=== PATIENT | male | born 1955 | race Caucasian/White ===

== ENCOUNTER 2019-03-01 16:01 | Observation (INO) ==
[2019-03-01 16:40] LABS: Basophils # 0.1 K/mcL (0.0-0.2); Basophils % 0.4 %; Eosinophils # 0.1 K/mcL (0.0-0.6); Eosinophils % 0.5 %; Hematocrit 51.5 % (37.5-50.1); Hemoglobin 18.2 g/dL (12.9-16.9); Immature Granulocytes % 0.6 % (0-4); Lymphocytes # 3.5 K/mcL (0.6-4.6); Lymphocytes % 20.7 %; Mean Corpuscular HGB Conc 35.3 g/dL (31.6-35.5); Mean Corpuscular Hemoglobin 31.5 pg (28.0-33.3); Mean Corpuscular Volume 89.1 fL (83.0-100.0); Mean Platelet Volume 10.4 fL (9.4-12.4); Monocytes # 1.4 K/mcL (0.0-1.3); Monocytes % 8.5 %; Neutrophils # 11.6 K/mcL (1.6-8.9); Platelet Count 222 K/mcL (140-400); Red Blood Count 5.78 M/mcL (4.19-5.50); Red Cell Distribution Width 12.7 % (11.5-14.5); Segmented Neutrophils % 69.3 %; White Blood Count 16.7 K/mcL (4.3-11.1)
[2019-03-01 16:43] LABS: Alanine Aminotransferase 10 Units/L (7-52); Albumin 4.1 g/dL (3.5-5.7); Albumin/Globulin Ratio 1.6 (1.1-2.2); Alkaline Phosphatase 77 Units/L (34-104); Aspartate Amino Transferase 15 Units/L (13-39); BUN/Creatinine Ratio 14 (6-26); Bilirubin,Total 0.9 mg/dL (0.3-1.0); Blood Urea Nitrogen 14 mg/dL (8-23); Calcium 9.3 mg/dL (8.6-10.3); Carbon Dioxide 20 mEq/L (23-29); Chloride 108 mEq/L (98-107); Globulin 2.5 g/dL (2.4-3.5); Glucose 138 mg/dL (70-105); Osmolality,Calculated 287 (280-300); Potassium 3.9 mEq/L (3.5-5.1); Sodium 137 mEq/L (136-145); Total Protein 6.6 g/dL (6.4-8.9); Troponin I < 0.03 ng/mL (< 0.04); eGFR For African Americans > 60 (> 60); eGFR For Non-African Americans > 60 (> 60)
--- NOTE | 2019-03-01 16:53 | Emergency Department Note ---
Disposition Clinical Impression: Atrial fibrillation with RVR Disposition: Admitted As Inpatient Condition: Fair Time of Disposition: 19:35 General Adult HPI - General Chief complaint: ED Shortness of Breath/Dyspnea Stated complaint: JOSIAS,Palpatations Time Seen by Provider: 03/01/19 16:04 Source: patient Mode of arrival: ambulatory Limitations: no limitations Nursing Notes Reviewed: Yes Vital Signs Reviewed: Yes - History of Present Illness HPI Narrative: 63-year-old male presents today with 8 hour history of palpitations. This started today at 8 AM and did not improve throughout the day. Patient takes flecainide 100mg PO BID and baby aspirin daily for known history of atrial fib rillation. He was diagnosed with Afib 6+ years ago, but denies starting anticoagulation. He has intermittent episodes of palpitations, but has not had an episode for years. Reports that he had multiple cups of coffee and energy drinks today, which is uncommon for him. Admits to fatigue and "feeling like he just ran a marathon" but denies any nausea, vomiting, chest pain, SOB, diaphoresis, abdominal pain. No history of high blood pressure, CHF, COPD, but is a chronic active smoker. Pt Subjective Complaint: palpitations Onset (ago): hour(s) (8) Location: chest Radiation: non-radiation Pain Scale: 0 Quality: other (pressure) Consistency: constant Improves with: rest Worsens with: movement Associated symptoms: Denies: chest pain, diaphoresis - Related Data Home Medications Medication Instructions Recorded Confirmed Flecainide 100 mg PO BID 05/27/18 03/01/19 Aspirin [Adult Aspirin] 81 mg PO DAILY 03/01/19 03/01/19 [place]-3 600 mg PO DAILY 03/01/19 03/01/19 Allergies Allergy/AdvReac Type Severity Reaction Status Date / Time No Known Allergies Allergy Verified 03/01/19 17:02 Review of Systems: As Per HPI Constitutional: Denies: fever, chills, weakness, weight change Eyes: Denies: eye pain, eye discharge, vision change ENT ED: Denies: ear pain, throat pain, dental pain, hearing loss, epistaxis, congestion, dysphagia Cardiovascular: Reports: palpitations. Denies: chest pain, dyspnea on exertion, edema, syncope Respiratory: Denies: cough, dyspnea, wheezes, hemoptysis, stridor Gastrointestinal: Denies: abdominal pain, nausea, vomiting, diarrhea, constipation, hematemesis, melena, hematochezia Genitourinary: Denies: urgency, dysuria, frequency, hematuria Musculoskeletal: Denies: back pain, neck pain, arthralgia, myalgia Integumentary: Denies: rash, abrasion, lesions Neurological: Denies: headache, weakness, numbness, paresthesias, confusion, abnormal gait, vertigo Psychiatric: Denies: anxiety, depression, suicidal thoughts, homicidal thoughts, auditory hallucinations, visual hallucinations Endocrine: Denies: fatigue Hematological/Lymphatic: Denies: easy bleeding, easy bruising Allergic/Immunologic: Denies: facial swelling, urticaria Past Medical History - Past Medical History Attestation: Yes The following information was validated with the patient. Source: patient Medical history: Reports: atrial fibrillation Surgical history: Reports: no surgical history Psychiatric history: Reports: no psych history - Social History Smoking Status: Current every day smoker Smokeless Tobacco Status: No Alcohol use: Reports: occasionally Drug use: Reports: none Physical Exam - General Limitations: no limitations General appearance: alert - Head Head exam: atraumatic, normocephalic, normal inspection - Eye Eye exam: Present: normal appearance, EOMI - Expanded Eye Exam Pupils: Left: reactive - ENT ENT exam: normal exam, normal oropharynx, mucous membranes moist - Expanded ENT Exam External ear exam: Present: normal external inspection Mouth exam: Present: normal external inspection Teeth exam: Present: normal inspection Throat exam: Present: normal inspection - Neck Neck exam: Present: normal inspection, full ROM, trachea midline - Chest Chest inspection: Present: normal inspection, symmetric chest wall rise - Respiratory Respiratory exam: Present: normal lung sounds bilaterally - Cardiovascular Cardiovascular exam: Present: other (irregularly irregular) - Abdominal Exam Abdominal exam: Present: soft, Non-Tender. Absent: tenderness, distention, guarding, rebound, rigidity - Extremities Exam Extremities exam: Present: normal inspection, full ROM. Absent: tenderness, pedal edema - Expanded Upper Extremity Exam Shoulder exam: Present: normal inspection, full ROM Arm exam: Present: normal inspection, full ROM Elbow exam: Present: normal inspection, full ROM Forearm/Wrist exam: Present: normal inspection, full ROM Hand exam: Present: normal inspection, full ROM Vascular exam: Normal: capillary refill, radial pulse - Expanded Lower Extremity Exam Hip/Pelvis exam: Present: normal inspection, full ROM Upper leg exam: Present: normal inspection, full ROM Knee exam: Present: normal inspection, full ROM Lower leg exam: Present: normal inspection, full ROM Ankle exam: Present: normal inspection, full ROM Foot/toe exam: Present: normal inspection, full ROM Neurovascular/Tendon exam: Absent: motor deficit, sensory deficit, tendon deficit - Back Exam Back exam: Present: normal inspection, full ROM. Absent: tenderness - Neurological Exam Neurological exam: Present: alert, oriented X3 - Expanded Neurological Exam Patient oriented to: Present: person, place, time Coma Scale Eye Opening: Spontaneous Coma Scale Motor Response: Obeys Commands Coma Scale Verbal Response: Oriented Coma Scale Total: 15 - Psychiatric Psychiatric exam: Present: normal affect, normal mood - Skin Skin exam: Present: warm, dry, intact, normal color Course Course Narrative: Patient presents with Afib RVR confirmed by EKG. Will start cardiac work-up. CBC, coags, CMP, magnesium, CXR, troponin, TSH pending. We will start him on IV dose of Cardizem - Reevaluation(s) Reevaluation #1: HR 110s. Continues to be irregularly irregular. Time: 17:52 - Consultations Consultation #1: Admitting hospitalist has accepted. Time: 18:30 Vital Signs Temperature 98.2 F 03/01/19 16:05 Pulse Rate 157 03/01/19 16:05 Respiratory Rate 21 03/01/19 16:05 Blood Pressure 136/67 03/01/19 16:05 O2 Sat by Pulse Oximetry 95 03/01/19 16:05 Temperature 98.0 F 03/01/19 23:05 Pulse Rate 95 03/01/19 23:05 Respiratory Rate 15 03/01/19 23:05 Blood Pressure 96/63 03/01/19 23:05 O2 Sat by Pulse Oximetry 96 03/01/19 23:05 Oxygen Delivery Oxygen Delivery Room Air Medical Decision Making - MDM Narrative Medical decision making narrative: 63M presents with Afib with RVR with stable blood pressure. CXR unremarkable. He was started on Cardizem IV 25mg once and heart rate continues to be 120s and irregularly irregular. He continues to be fatigued and nauseous as well. Currently on cardizem IV drip. We will admit patient for Afib RVR, not anticoagulated. Admitting hospitalist has accepted. - Medical Records Medical records reviewed: Yes I reviewed the patient's medical records. - Lab Data Lab results reviewed: Yes I reviewed the patient's lab results. Result diagrams: 03/01/19 16:10 03/01/19 16:10 Lab Results 03/01/19 03/01/19 03/01/19 Range/Units 16:10 16:10 16:10 WBC 16.7 H (4.3-11.1) K/mcL RBC 5.78 H (4.19-5.50) M/mcL Hgb 18.2 H (12.9-16.9) g/dL Hct 51.5 H (37.5-50.1) % MCV 89.1 (83.0-100.0) fL MCH 31.5 (28.0-33.3) pg MCHC 35.3 (31.6-35.5) g/dL RDW 12.7 (11.5-14.5) % Plt Count 222 (140-400) K/mcL MPV 10.4 (9.4-12.4) fL Immature Gran % 0.6 (0-4) % Seg Neutrophils % 69.3 % Lymphocytes % 20.7 % Monocytes % 8.5 % Eosinophils % 0.5 % Basophils % 0.4 % Neutrophils # 11.6 H (1.6-8.9) K/mcL Lymphocytes # 3.5 (0.6-4.6) K/mcL Monocytes # 1.4 H (0.0-1.3) K/mcL Eosinophils # 0.1 (0.0-0.6) K/mcL Basophils # 0.1 (0.0-0.2) K/mcL PT 11.8 (9.4-12.1) Seconds INR 1.0 APTT 34.0 (26.0-36.0) Seconds Sodium 137 (136-145) mEq/L Potassium 3.9 (3.5-5.1) mEq/L Chloride 108 H (98-107) mEq/L Carbon Dioxide 20 L (23-29) mEq/L BUN 14 (8-23) mg/dL Creatinine 0.99 (0.70-1.30) mg/dL Est GFR ( Amer) > 60 (> 60) Est GFR (Non-Af Amer) > 60 (> 60) BUN/Creatinine Ratio 14 (6-26) Glucose 138 H (70-105) mg/dL Calculated Osmolality 287 (280-300) Calcium 9.3 (8.6-10.3) mg/dL Magnesium 2.0 (1.6-2.6) mg/dL Total Bilirubin 0.9 (0.3-1.0) mg/dL AST 15 (13-39) Units/L ALT 10 (7-52) Units/L Alkaline Phosphatase 77 (34-104) Units/L Troponin I < 0.03 (< 0.04) ng/mL Serum Total Protein 6.6 (6.4-8.9) g/dL Albumin 4.1 (3.5-5.7) g/dL Globulin 2.5 (2.4-3.5) g/dL Albumin/Globulin Ratio 1.6 (1.1-2.2) TSH 1.444 (0.340-5.600) mcIU/mL - Radiology Data Radiology results reviewed: Yes I reviewed the patient's radiology results. - EKG Data EKG #1 EKG attestation: Yes I reviewed and interpreted this EKG. EKG results narrative: EKG demonstrates irregularly irregular rhythm with rate 175
[2019-03-01 17:02] LABS: Prothrombin Time 11.8 Seconds (9.4-12.1)
--- NOTE | 2019-03-01 17:58 | Emergency Department Note ---
Disposition Clinical Impression: Atrial fibrillation with RVR Disposition: Admitted As Inpatient Condition: Good Time of Disposition: 19:35 General Adult HPI - General Chief complaint: ED Shortness of Breath/Dyspnea Stated complaint: JOSIAS,Palpatations Time Seen by Provider: 03/01/19 16:04 Source: patient Mode of arrival: ambulatory Limitations: no limitations - History of Present Illness Location: chest Pain Scale: 0 Quality: other (pressure) Improves with: rest Worsens with: movement Associated symptoms: Denies: chest pain, diaphoresis - Related Data Home Medications Medication Instructions Recorded Confirmed Flecainide 100 mg PO BID 05/27/18 03/02/19 Aspirin [Adult Aspirin] 81 mg PO DAILY 03/01/19 03/01/19 [place]-3/Dha/Epa/Fish Oil [Fish Oil 1 cap PO DAILY 03/01/19 03/02/19 1,000 mg Softgel] Previous Rx's Medication Instructions Recorded Metoprolol XL (24 HR) Succ [Toprol 25 mg PO DAILY #30 tab.er.24h 03/02/19 Xl] Allergies Allergy/AdvReac Type Severity Reaction Status Date / Time No Known Allergies Allergy Verified 03/01/19 17:02 Constitutional: Denies: fever, chills, weakness, weight change Eyes: Denies: eye pain, eye discharge, vision change ENT ED: Denies: ear pain, throat pain, dental pain, hearing loss, epistaxis, congestion, dysphagia Cardiovascular: Reports: palpitations. Denies: chest pain, dyspnea on exertion, edema, syncope Respiratory: Denies: cough, dyspnea, wheezes, hemoptysis, stridor Gastrointestinal: Denies: abdominal pain, nausea, vomiting, diarrhea, constipation, hematemesis, melena, hematochezia Genitourinary: Denies: urgency, dysuria, frequency, hematuria Musculoskeletal: Denies: back pain, neck pain, arthralgia, myalgia Integumentary: Denies: rash, abrasion, lesions Neurological: Denies: headache, weakness, numbness, paresthesias, confusion, abnormal gait, vertigo Psychiatric: Denies: anxiety, depression, suicidal thoughts, homicidal thoughts, auditory hallucinations, visual hallucinations Endocrine: Denies: fatigue Hematological/Lymphatic: Denies: easy bleeding, easy bruising Allergic/Immunologic: Denies: facial swelling, urticaria Past Medical History - Past Medical History Medical history: Reports: atrial fibrillation Surgical history: Reports: no surgical history Psychiatric history: Reports: no psych history - Social History Smoking Status: Current every day smoker Smokeless Tobacco Status: No Alcohol use: Reports: occasionally Drug use: Reports: none Physical Exam - General Limitations: no limitations General appearance: alert Course Vital Signs Temperature 98.2 F 03/01/19 16:05 Pulse Rate 157 03/01/19 16:05 Respiratory Rate 21 03/01/19 16:05 Blood Pressure 136/67 03/01/19 16:05 O2 Sat by Pulse Oximetry 95 03/01/19 16:05 Temperature 98.1 F 03/02/19 16:39 Pulse Rate 78 03/02/19 16:39 Respiratory Rate 15 03/02/19 16:39 Blood Pressure 112/74 03/02/19 16:39 O2 Sat by Pulse Oximetry 96 03/02/19 16:39 Oxygen Delivery Oxygen Delivery Room Air Medical Decision Making - Lab Data Result diagrams: 03/02/19 05:49 03/02/19 05:49 Lab Results 03/01/19 03/01/19 03/01/19 Range/Units 16:10 16:10 16:10 WBC 16.7 H (4.3-11.1) K/mcL RBC 5.78 H (4.19-5.50) M/mcL Hgb 18.2 H (12.9-16.9) g/dL Hct 51.5 H (37.5-50.1) % MCV 89.1 (83.0-100.0) fL MCH 31.5 (28.0-33.3) pg MCHC 35.3 (31.6-35.5) g/dL RDW 12.7 (11.5-14.5) % Plt Count 222 (140-400) K/mcL MPV 10.4 (9.4-12.4) fL Immature Gran % 0.6 (0-4) % Seg Neutrophils % 69.3 % Lymphocytes % 20.7 % Monocytes % 8.5 % Eosinophils % 0.5 % Basophils % 0.4 % Neutrophils # 11.6 H (1.6-8.9) K/mcL Lymphocytes # 3.5 (0.6-4.6) K/mcL Monocytes # 1.4 H (0.0-1.3) K/mcL Eosinophils # 0.1 (0.0-0.6) K/mcL Basophils # 0.1 (0.0-0.2) K/mcL PT 11.8 (9.4-12.1) Seconds INR 1.0 APTT 34.0 (26.0-36.0) Seconds Sodium 137 (136-145) mEq/L Potassium 3.9 (3.5-5.1) mEq/L Chloride 108 H (98-107) mEq/L Carbon Dioxide 20 L (23-29) mEq/L BUN 14 (8-23) mg/dL Creatinine 0.99 (0.70-1.30) mg/dL Est GFR ( Amer) > 60 (> 60) Est GFR (Non-Af Amer) > 60 (> 60) BUN/Creatinine Ratio 14 (6-26) Glucose 138 H (70-105) mg/dL Calculated Osmolality 287 (280-300) Calcium 9.3 (8.6-10.3) mg/dL Magnesium 2.0 (1.6-2.6) mg/dL Total Bilirubin 0.9 (0.3-1.0) mg/dL AST 15 (13-39) Units/L ALT 10 (7-52) Units/L Alkaline Phosphatase 77 (34-104) Units/L Troponin I < 0.03 (< 0.04) ng/mL Serum Total Protein 6.6 (6.4-8.9) g/dL Albumin 4.1 (3.5-5.7) g/dL Globulin 2.5 (2.4-3.5) g/dL Albumin/Globulin Ratio 1.6 (1.1-2.2) TSH 1.444 (0.340-5.600) mcIU/mL Attestation Statement - Attestation Attestation: I examined this patient and my medical decision-making was reviewed with the Resident Physician. I agree with the documented findings, disposition and treatment plan as described except to the extent set forth below. Patient 63-year-old gentleman with history of atrial fibrillation a presents to department with chief complaint of atrial fibrillation with rapid ventricular response. The patient reports that he feels as though his heart beating fast and feels that when his A. fib was kicked up for the past. Exam patient awake alert no acute distress patient has a resting heart rate in the 140s Medical decision management the patient will be rate controlled with IV Cardizem and the patient will be admitted to the hospital for further rate control I personally supervised and was present for the pearson/critical portions of the following procedures completed by the resident:EKG.
[2019-03-01 18:13] LABS: Thyroid Stimulating Hormone 1.444 mcIU/mL (0.340-5.600)
[2019-03-01] MEDS ORDERED: Naloxone 0.4 MG/ML INJ IVP PRN (22:10)
[2019-03-01] MEDS ORDERED: 0.9 % Sodium Chloride 1,000 ML IVC SCH (22:15)
--- NOTE | 2019-03-02 00:04 | Internal Med History&Physical ---
Date of Encounter: 03/01/19 Time of Encounter: 23:43 Internal Medicine - H&P: HPI Chief complaint: Lightheaded History of present illness: Mr. Mota is a 63 year old male with a past medical history of atrial fibrillation currently on rhythm control with flecainide who presented to the ED due to near-syncope and palpitations. Patient states that Saturday afternoon alvaro ent felt sick after he got home from work noting an upset stomach. No reports of nausea, vomiting or diarrhea. He states he slept all day on Saturday due to generalized fatigue. Did not have much to eat. Patient woke up Saturday morning and felt a little bit better. He was out doing work in his garden when he felt lightheaded and felt as if he was going to pass out. Patient stopped when he wa s doing and sat in the shade for little bit. He later resumed work in his garden and again had a near syncopal episode at which point he decided to come in for evaluation. Patient denies any loss of consciousness. Patient is currently on flecainide for his atrial fibrillation and follows with a plant hr manager in [place]. He states that his medication was cut in half approximately 6 months ago but has had no other recent changes in his medications. Patient did not endorse palpitations. He does endorse some chest discomfort that seems to be aggravated with deep inspiration. Denies any fever or chills. Denies any dysuria He did report shortness of breath today which resolved after his heart rate was controlled here in the ED. Patient is a chronic smoker and currently smokes 1 pack a day. No prior history of blood clots. No reports of sick contacts or tick bites. Patient is only on a baby aspirin, flecainide and omega-3 fatty acid. On arrival patient was found to have a heart rate in the 120s. EKG consistent with atrial fibrillation with rapid ventricular response. No evidence of ST or T-wave changes. Laboratory workup notable for a leukocytosis of 16.7 and evidence of hemoconcentration with a hemoglobin of 18.2 and hematocrit of 51.1. TSH within normal limits. Chest x-ray showed no acute cardiopulmonary abnormality. Past Med Surg Social Fam HX - Past Medical History Medical history: atrial fibrillation Psychiatric history: no psych history - Past Surgical History Surgical History: no surgical history - Social History Smoking Status: Current every day smoker Smokeless Tobacco Status: No Alcohol use: occasionally Drug use: none - Family History Mother Hx Family Cancer: Yes (lung, pancreatic) Father Hx Family Cancer: Yes (brain) Internal Medicine - H&P: Meds Flecainide 100 mg PO BID 05/27/18 [History] Aspirin [Adult Aspirin] 81 mg PO DAILY 03/01/19 [History] [place]-3/Dha/Epa/Fish Oil [Fish Oil 1,000 mg Softgel] 1 cap PO DAILY 03/01/19 [History] Metoprolol XL (24 HR) Succ [Toprol Xl] 25 mg PO DAILY #30 tab.er.24h 03/02/19 [Rx] Allergy/AdvReac Type Severity Reaction Status Date / Time No Known Allergies Allergy Verified 03/01/19 17:02 All Systems PM: A 10-system review of systems was performed and is negative for pertinent findings except as documented above in the HPI. - Constitutional Constitutional: no chills, no fever(s), no night sweats - EENT Eyes: no change in vision, no discharge, no pain, no photophobia Ears: no ear discharge, no ear pain, no tinnitus Nose, mouth and throat: no dysphagia, no nasal discharge, no neck pain, no sore throat - Cardiovascular Cardiovascular ROS IM: no chest pain, no diaphoresis, no dyspnea, no lighthe adedness, no palpitations, no syncope - Respiratory Respiratory: no cough, no dyspnea, no wheezing, no excessive phlegm production - Gastrointestinal Gastrointestinal: no abdominal pain, no diarrhea, no hematemesis, no hem atochezia, no melena, no nausea, no vomiting - Musculoskeletal Musculoskeletal ROS IM: no numbness, no tingling - Integumentary Integumentary IM: no rash, no unusual bruising - Neurological Neurological ROS: no confusion, no convulsions, no focal weakness, no numbness, no tingling, no tremor(s) - Hematologic/Lymphatic Hematologic/Lymphatic: no easy bruising - Constitutional Vitals: Temp Pulse Resp BP Pulse Ox 98.0 F 95 15 96/63 96 03/01/19 23:05 03/01/19 23:05 03/01/19 23:05 03/01/19 23:05 03/01/19 23:05 Exam: General: Alert and oriented 3 lying in bed in no acute distress Skin:Normal color, no rash, no lesions. HEENT:EOM, pupils equal, round and reactive. Cardiovascular:Normal S1 & S2, irregularly irregular rhythm Lungs:Normal breath sounds, no wheezes or crackles. Abdomen:Soft, non-tender, no rigidity. Extremities:No deformity, no edema or tenderness, no joint swelling or clubbing. Neurological:Normal cognition and motor skills. Pulses:Carotid and radial pulses normal +2. Rest of the physical exam is non contributory Internal Med - H&P Results - Labs CBC & Chem 7: 03/02/19 05:49 03/02/19 05:49 Labs: Short CBC 03/01/19 Range/Units 16:10 WBC 16.7 H (4.3-11.1) K/mcL Hgb 18.2 H (12.9-16.9) g/dL Hct 51.5 H (37.5-50.1) % Plt Count 222 (140-400) K/mcL Neutrophils # 11.6 H (1.6-8.9) K/mcL BMP 03/01/19 16:10 Sodium 137 Potassium 3.9 Chloride 108 H Carbon Dioxide 20 L BUN 14 Creatinine 0.99 Glucose 138 H Calcium 9.3 Cardiac Enzymes 03/01/19 Range/Units 16:10 Troponin I < 0.03 (< 0.04) ng/mL Liver Function 03/01/19 Range/Units 16:10 Total Bilirubin 0.9 (0.3-1.0) mg/dL AST 15 (13-39) Units/L ALT 10 (7-52) Units/L Alkaline Phosphatase 77 (34-104) Units/L Albumin 4.1 (3.5-5.7) g/dL - Impressions ITS Impressions Chest X-Ray 03/01/19 16:18 IMPRESSION: No acute process. D/ / Jaiden Perez MD / Jaiden Perez MD Interpreting Provider: Jaiden Perez MD - Assessment and Plan (1) Atrial fibrillation with RVR Status: Resolved Assessment and plan: History of atrial fibrillation currently on rhythm control with flecainide presenting with atrial fibrillation with RVR with EKG showing heart rate in the 120s associated with lightheadedness and near syncopal episode. No evidence of ischemia on EKG. Initial troponin negative. Not currently on anticoagulation likely due to a chads vasc score of 0 based on current past medical history. Patient currently takes a baby aspirin. Patient placed on Cardizem drip now with heart rate around 100 bpm. Patient otherwise hemodynamically stable. No reports of chest pain. Patient appears to be flushed and possibly dehydrated given history of decreased PO intake and working outdoors and suspect. This is further corroborated by his hemoconcentration, though patient is a chronic smoker. No previous labs to compare to. -Continue Cardizem drip -Telemetry -We will obtain echocardiogram in the morning -Cardiology consult for management of patient's rhythm control (2) Leukocytosis Status: Acute Assessment and plan: Neutrophilic predominant Leukocytosis of 16.7. Patient reports generalized fatigue and malaise for 2 days, however history does not support a pulmonary, GI or source of infection. Chest x-ray was unremarkable. She does not endorse any dysuria. I suspect some of this may be dehydration. - We will continue to hydrate patient and monitor response. Qualifiers: Qualified Code(s): D72.829 - Elevated white blood cell count, unspecified (3) Near syncope Status: Acute Assessment and plan: Patient reports to near syncope episodes likely secondary to A. fib with RVR. No reports of chest pain or neurologic changes. -We will obtain an echocardiogram -Continue Cardizem for A. 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 Reports very little food intake over the past 2 days. Clinically he looks flushed and a little bit dry. Laboratory findings showing hemoconcentration. -We will start patient on IV fluids. (5) DVT prophylaxis Status: Acute Assessment and plan: Subcutaneous heparin - Time Spent With Patient Total time spent is greater than 50% in coordination of care (as documented) at patient's floor/unit and/or counseling patient:
[2019-03-02] MEDS ORDERED: 0.9 % Sodium Chloride 1,000 ML IVC SCH (00:20)
[2019-03-02] MEDS: *HR* Heparin 5,000 UNIT/ML VIAL SQ SCH ×3 (02:05→15:07)
[2019-03-02 06:20] LABS: Basophils # 0.1 K/mcL (0.0-0.2); Basophils % 0.6 %; Eosinophils # 0.1 K/mcL (0.0-0.6); Eosinophils % 0.9 %; Hematocrit 49.3 % (37.5-50.1); Hemoglobin 16.7 g/dL (12.9-16.9); Immature Granulocytes % 0.7 % (0-4); Lymphocytes # 2.4 K/mcL (0.6-4.6); Lymphocytes % 19.6 %; Mean Corpuscular HGB Conc 33.9 g/dL (31.6-35.5); Mean Corpuscular Hemoglobin 31.1 pg (28.0-33.3); Mean Corpuscular Volume 91.8 fL (83.0-100.0); Mean Platelet Volume 9.8 fL (9.4-12.4); Monocytes # 1.6 K/mcL (0.0-1.3); Monocytes % 12.9 %; Platelet Count 190 K/mcL (140-400); Red Blood Count 5.37 M/mcL (4.19-5.50); Red Cell Distribution Width 12.8 % (11.5-14.5); Segmented Neutrophils % 65.3 %; White Blood Count 12.2 K/mcL (4.3-11.1)
[2019-03-02 06:42] LABS: Prothrombin Time 11.3 Seconds (9.4-12.1)
[2019-03-02 06:47] LABS: Alanine Aminotransferase 9 Units/L (7-52); Albumin 3.6 g/dL (3.5-5.7); Albumin/Globulin Ratio 1.6 (1.1-2.2); Alkaline Phosphatase 67 Units/L (34-104); Aspartate Amino Transferase 12 Units/L (13-39); BUN/Creatinine Ratio 13 (6-26); Bilirubin,Total 0.7 mg/dL (0.3-1.0); Blood Urea Nitrogen 10 mg/dL (8-23); Calcium 8.7 mg/dL (8.6-10.3); Carbon Dioxide 22 mEq/L (23-29); Chloride 109 mEq/L (98-107); Globulin 2.3 g/dL (2.4-3.5); Glucose 123 mg/dL (70-105); Osmolality,Calculated 290 (280-300); Potassium 3.9 mEq/L (3.5-5.1); Sodium 140 mEq/L (136-145); Total Protein 5.9 g/dL (6.4-8.9); eGFR For African Americans > 60 (> 60); eGFR For Non-African Americans > 60 (> 60)
--- NOTE | 2019-03-02 08:46 | Cardiology Consult Note ---
<Filipe Winkler N - Last Filed: 03/02/19 13:28> Date of Encounter: 03/02/19 Time of Encounter: 08:46 Assessment and Plan (1) Atrial fibrillation with RVR Status: Resolved 63 male with PMH significant for A. fib well controlled on flecainide presents after feeling palpitations around 8 AM on 03/01 falling a couple days of illness. Patient initial EKG 03/01 found to have A. fib with RVR with a rate of 175. Patient started on Cardizem drip overnight. Patient states upon waking up this morning he no longer fits feeling palpitations. ECG done 7:14 on 03/02 shows patient back in normal sinus rhythm, which he continues to be in at this time. CHADS-VASc score of 0 -Patient with a short timeframe of A. fib RVR resolved overnight after being placed on a Cardizem drip with a timeframe of less than 24 hours. -Patient will not require long-term anticoagulation. -Cardizem drip has been stopped -QT of 369 will continue patient's flecainide and aspirin therapy -Will start pt on Toprol 25 mg daily for better rate control. -Echo ordered, will follow results. -Continue to monitor telemetry until discharge to ensure patient does not return to atrial fibrillation -Patient will need to follow up with his plumber's helper outpatient, cardiology will sign off pending normal echo findings. (2) Leukocytosis Status: Acute Qualifiers: Leukocytosis type: unspecified Qualified Code(s): D72.829 - Elevated white blood cell count, unspecified (3) Dehydration Status: Acute (4) Near syncope Status: Acute (5) DVT prophylaxis Status: Acute Discussion w patient/family: The assessment and plan as outlined above was discussed with the patient and/or family members who expressed understanding and agreement. All questions were answered. Thank you for involving us in the care of your patient. Please call with any questions. History of Present Illness Consult date: 03/02/19 Chief complaint: Palpitations History of present illness: Mr. Mota is a 63 year old male with PMH significant for atrial fibrillation presented to the ED c/o palpitations starting at 8 AM that did not improve throughout the day. Patient states he was feeling fatigued for the couple days prior to noticing that his heart was beating out of sync. Patient states he k nows when he goes into A. fib and has not had an episode since being started on flecainide. Patient also complained of some fatigue but denied other symptoms. Patient is seen by a plumber's helper in [place] and takes aspirin 81 mg, flecainide 100 mg twice a day, and omega-3 600 mg at home. Patient has no records of echo in the system. Patient currently states he is not feeling any palpitations and has not since he woke up this morning. Vitals on admission were a heart rate of 157, respiratory rate of 21, blood pressure of 136/67, and O2 sat of 95% on room air. ECG in the ED on 03/01 showed atrial fibrillation with RVR at 175. Chest x-ray with no acute findings. Patient was started on a Cardizem drip. ECG 03/02 patient has returned to sinus rhythm with a rate of 75. Patient denying any chest pain, palpitations, shortness of breath, abdominal pain, or swelling in the legs at this time. Past Med Surg Social Fam HX - Past Medical History Medical history: atrial fibrillation Psychiatric history: no psych history - Past Surgical History Surgical History: no surgical history - Social History Smoking Status: Current every day smoker Smokeless Tobacco Status: No Alcohol use: occasionally Drug use: none - Family History Mother Hx Family Cancer: Yes (lung, pancreatic) Father Hx Family Cancer: Yes (brain) Medications and Allergies Flecainide 100 mg PO BID 05/27/18 [History] Aspirin [Adult Aspirin] 81 mg PO DAILY 03/01/19 [History] [place]-3/Dha/Epa/Fish Oil [Fish Oil 1,000 mg Softgel] 1 cap PO DAILY 03/01/19 [ History] Metoprolol XL (24 HR) Succ [Toprol Xl] 25 mg PO DAILY #30 tab.er.24h 03/02/19 [Rx] Allergy/AdvReac Type Severity Reaction Status Date / Time No Known Allergies Allergy Verified 03/01/19 17:02 All Systems Review: The remainder of the systems were reviewed and are negative - Constitutional Constitutional: fatigue, no chills, no fever(s) - EENT Eyes: no blurred vision, no loss of vision - Cardiovascular Cardiovascular: no chest pain at rest, no chest pain with exertion, no diaphoresis, no dyspnea at rest, no dyspnea on exertion, no irregular heart rhythm, no leg edema, no palpitations - Respiratory Respiratory: no cough, no dyspnea - Gastrointestinal Gastrointestinal: no abdominal pain, no diarrhea, no nausea - Musculoskeletal Musculoskeletal: no abnormal gait, no back pain, no muscle cramps - Integumentary Integumentary: no erythema, no rash - Neurological Neurological: no abnormal speech, no dizziness, no loss of vision, no syncope - Psychiatric Psychiatric: no anxiety, no depression - Hematological/Lymphatic Hematologic/Lymphatic: no easy bleeding, no easy bruising Physical Examination Vital Signs, Last 4 Hours Temp Pulse Resp BP Pulse Ox 03/02/19 07:30 98.2 F 76 19 96/58 95 General: Conversant, No Apparent Distress HEENT: Atraumatic, Normocephaly, Mucus Membranes Moist Neck: No JVD, Normal carotid pulses Cardiac: Reg Rate and Rhythm, Normal S1 and S2, No Murmur Lungs: Normal Breath Sounds Neuro: Alert and responsive, No focal deficits noted Abdomen: Soft, Non-Tender Skin: No rashes noted on visualized skin Musculoskeletal: No Chest Wall Tenderness Extremities: No Clubbing, No Cyanosis, No Edema, Normal Pulses Results 03/02/19 05:49 03/02/19 05:49 Lab Results 03/01/19 03/01/19 03/01/19 16:10 16:10 16:10 WBC 16.7 H Hgb 18.2 H Hct 51.5 H Plt Count 222 INR 1.0 APTT 34.0 Sodium 137 Potassium 3.9 Chloride 108 H Carbon Dioxide 20 L BUN 14 Creatinine 0.99 Glucose 138 H Calcium 9.3 Magnesium 2.0 Total Bilirubin 0.9 AST 15 ALT 10 Alkaline Phosphatase 77 Troponin I < 0.03 TSH 1.444 03/02/19 03/02/19 03/02/19 05:49 05:49 05:49 WBC 12.2 H Hgb 16.7 D Hct 49.3 Plt Count 190 INR 1.0 APTT Sodium 140 Potassium 3.9 Chloride 109 H Carbon Dioxide 22 L BUN 10 Creatinine 0.78 Glucose 123 H Calcium 8.7 Magnesium Total Bilirubin 0.7 AST 12 L ALT 9 Alkaline Phosphatase 67 Troponin I TSH Consult Discharge Plan - Plan Instructions: Metoprolol (By mouth), Atrial Fibrillation (DC) Referrals: Yaakov Dover MD [Non-Partnered Physician] - (Please call to schedule follow up within 1 week) Urvashi Nguyễn, [employer] [Primary Care Provider] - (Please call to schedule follow up within 1 week) Prescriptions: Metoprolol XL (24 HR) Succ [Toprol Xl] 25 mg PO DAILY #30 tab.er.24h <Jeni Do - Last Filed: 03/02/19 19:04> Date of Encounter: 03/02/19 - Attending Attestation Patient was seen and evaluated independently by me. Findings, assessment and plan were discussed at length with patient, questions answered. Agree with nurse practitioner's/resident's documentation. Addition as follows, 63yoCF ho PAF C score 0 on flecainide p/w palpitations after URI symptoms, last time in Afib 6-7 yrs ago. Stated always palpitations going into Afib. Found in Afib RVR and converted to SR spontaneously within 24 hours of symptom onset. No complaints on interview. Tele no events. ECG QRS wnl. VSS, CTA B/L, RR, no LE edema. No RUY, TSH nl, leukocytosis. A: PAF, C score 0, on flecainide, back to SR in 24 hrs of Afib P: add toprol 25 given Ic drug use if TTE wnl, continue flecainide and f/u primary plumber's helper Jeni Do MD, PhD Assessment and Plan Discussion w patient/family: The assessment and plan as outlined above was discussed with the patient and/or family members who expressed understanding and agreement. All questions were answered. Thank you for involving us in the care of your patient. Please call with any questions. History of Present Illness History of present illness: Mr. Mota is a 63 year old male All Systems Review: The remainder of the systems were reviewed and are negative Physical Examination Vital Signs, Last 4 Hours Temp Pulse Resp BP Pulse Ox 03/02/19 16:39 98.1 F 78 15 112/74 96 Results 03/02/19 05:49 03/02/19 05:49 Lab Results 03/02/19 03/02/19 03/02/19 05:49 05:49 05:49 WBC 12.2 H Hgb 16.7 D Hct 49.3 Plt Count 190 INR 1.0 Sodium 140 Potassium 3.9 Chloride 109 H Carbon Dioxide 22 L BUN 10 Creatinine 0.78 Glucose 123 H Calcium 8.7 Total Bilirubin 0.7 AST 12 L ALT 9 Alkaline Phosphatase 67
[2019-03-02] MEDS ORDERED: OMEGA PO SCH (09:00)
[2019-03-02] MEDS ORDERED: Aspirin Enteric Coated 81 MG Tablet PO SCH (09:00)
[2019-03-02] MEDS ORDERED: Metoprolol XL (24 HR) Succ 25 MG TAB.ER.24H PO SCH ×2 (13:02→20:00)
--- NOTE | 2019-03-02 15:01 | Electrocardiograph Report ---
[place] [id number] Test Date: 2019-03-02 Pat Name: Nguyễn Mota Department: 113 Room: 3B Gender: M Physician Assistant Primary Care: : 1955 Requested By: Armando Burgos Order Number: [id number] Reading MD: Justin Bloom Measurements Intervals [place] Rate: 75 P: 56 CT: 151 QRS: 69 QRSD: 92 T: 85 QT: 369 QTc: 397 Interpretive Statements SINUS RHYTHM Electronically Signed On 03-02-2019 15:00:05 EDT by Justin Bloom
[2019-03-02] MEDS ORDERED: Perflutren Lipid Microsphere 1.3 ML in 0.9 % Sodium Chloride 8.7 ML IVP ONE (15:23)
--- NOTE | 2019-03-02 15:46 | Discharge Summary ---
- NOTES TO OUTPATIENT PROVIDER Notes to Outpatient Provider: f/u with PCP in one week. f/u with Cardiology in one week. Please start taking Metoprolol XL 25mg PO Daily. Please quit smoking. Date of Encounter: 03/02/19 Time of Encounter: 15:34 - Discharge Diagnosis (1) Near syncope Priority: Primary Status: Acute (2) Atrial fibrillation with RVR Priority: Primary Status: Resolved (3) Leukocytosis Priority: Primary Status: Acute Qualifiers: Leukocytosis type: unspecified Qualified Code(s): D72.829 - Elevated white blood cell count, unspecified (4) Dehydration Priority: Secondary Status: Acute (5) DVT prophylaxis Priority: Secondary Status: Acute Hospital course: Mr. Mota is a 63 year old male with known past medical history of atrial fibrillation currently on flecainide and ASA, chronic tobacco dependence pt presented to the ED due to near-syncope and palpitations. Patient is currently on flecainide for his atrial fibrillation and follows with a metalsmith helper in [place]. He states that his medication was cut in half approximately 6 months ago but has had no other recent changes in his medications. On arrival to the ER patient was found to have a heart rate in the 120s. EKG consistent with atrial fibrillation with rapid ventricular response. No evidence of ST or T-wave changes. He was admitted in the hospital and placed him on ekg monitor tech. He was started on Cardizem drip. He is converted to NSR this morning. So we resumed his home med Flecainide. Pt was evaluated by metalsmith helper who recommend to add BB along with Flecainide for rate control. So started him on Metoprolol XL 25mg. We will d/c him home in stable condition today after 2 D Echo. - Time Spent with Patient Total time spent providing and/or coordinating discharge services: - Discharge Medications Prescriptions: New Metoprolol XL (24 HR) Succ [Toprol Xl] 25 mg PO DAILY #30 tab.er.24h Continued Flecainide 100 mg PO BID Aspirin [Adult Aspirin] 81 mg PO DAILY [place]-3/Dha/Epa/Fish Oil [Fish Oil 1,000 mg Softgel] 1 cap PO DAILY Home Medications: Flecainide 100 mg PO BID 05/27/18 [History] Aspirin [Adult Aspirin] 81 mg PO DAILY 03/01/19 [History] [place]-3/Dha/Epa/Fish Oil [Fish Oil 1,000 mg Softgel] 1 cap PO DAILY 03/01/19 [History] Metoprolol XL (24 HR) Succ [Toprol Xl] 25 mg PO DAILY #30 tab.er.24h 03/02/19 [Rx] Allergies/Adverse Reactions: Allergy/AdvReac Type Severity Reaction Status Date / Time No Known Allergies Allergy Verified 03/01/19 17:02 Date of admission: 03/01/19 20:04 Primary care physician: Urvashi Nguyễn CNP Consults: 03/01/19 22:16 Consult to Cardiology [CONS] Routine Comment: Consulting Provider: Cardiology Fabiola Reason for Consult: A fib with RVR on Flecanide Call Completed: No - Constitutional Vitals: Temp Pulse Resp BP Pulse Ox 98.1 F 73 16 98/60 96 03/02/19 11:50 03/02/19 11:50 03/02/19 11:50 03/02/19 11:50 03/02/19 11:50 General appearance: Present: A&O X 3, no acute distress, answers questions appropriately Exam: Gen: Alert, awake, Oriented to time,place and person Chest: Diminished breath sounds B/L, No wheezing, No crackles, No rales Heart: S1S2+ RRR No murmurs Abd: Soft, NT, BS +, No organomegaly Ext: No edema, pulses are palpable, No calf tenderness Neuro : No acute focal neuro deficits noticed Skin: No rash. - Patient Status Disposition: Home, Self-Care Condition: Good Overall status at discharge: patient is back to baseline - Discharge Instructions Follow Up With: Urvashi Nguyễn CNP [Primary Care Provider] - Yaakov Dover MD [Non-Partnered Physician] - - Diet and Activity Activity: increase activity as tolerated Diet: low salt diet
[2019-03-02 16:40] VITALS: BP 112/74
--- NOTE | 2019-03-03 06:32 | Electrocardiograph Report ---
[place] [employer] Test Date: 2019-03-01 Pat Name: Nguyễn Mota Department: [id number] Room: 3B63 Gender: M Cyber Security: : 1955 Requested By: Wayne Dalton Order Number: [id number] Reading MD: Dmitry Fan Measurements Intervals [place] Rate: 175 P: [place]: QRS: 103 QRSD: 102 T: -58 QT: 296 QTc: 480 Interpretive Statements Atrial fibrillation with rapid V-rate Left posterior fascicular block Electronically Signed On 03-03-2019 6:31:09 EDT by Dmitry Fan
== END 2019-03-02 17:36 | disposition home or self-care (01) ==
LOC: EMEROOARM 16:01 → 3BNU 16:01
PROVIDERS: ADMIT Internal Medicine; ATTEND Internal Medicine

== ENCOUNTER 2019-03-26 18:28 | Inpatient (IN) ==
[2019-03-26 19:00] LABS: Basophils # 0.1 K/mcL (0.0-0.2); Basophils % 0.5 %; Eosinophils # 0.1 K/mcL (0.0-0.6); Eosinophils % 0.8 %; Hematocrit 49.7 % (37.5-50.1); Hemoglobin 17.1 g/dL (12.9-16.9); Immature Granulocytes % 0.5 % (0-4); Lymphocytes # 3.3 K/mcL (0.6-4.6); Lymphocytes % 24.2 %; Mean Corpuscular HGB Conc 34.4 g/dL (31.6-35.5); Mean Corpuscular Hemoglobin 30.9 pg (28.0-33.3); Mean Corpuscular Volume 89.9 fL (83.0-100.0); Mean Platelet Volume 10.2 fL (9.4-12.4); Monocytes # 1.2 K/mcL (0.0-1.3); Neutrophils # 8.8 K/mcL (1.6-8.9); Platelet Count 222 K/mcL (140-400); Red Blood Count 5.53 M/mcL (4.19-5.50); Red Cell Distribution Width 12.6 % (11.5-14.5); White Blood Count 13.5 K/mcL (4.3-11.1)
--- NOTE | 2019-03-26 19:00 | Emergency Department Note ---
Disposition Clinical Impression: Atrial fibrillation Disposition: Admitted As Inpatient Condition: Fair Forms: ED Satisfaction Letter Time of Disposition: 20:16 Arrhythmia/Palpitations HPI - General Chief Complaint: ED Arrhythmia/Palpitations Stated Complaint: a-fib Time Seen by Provider: 03/26/19 18:37 Source: EMS - History of Present Illness HPI Narrative: Patient is a 63-year-old male presents to emergency room with lightheadedness, palpitations. The patient does have a history of atrial fibrillation. The patient is followed by activities coordinator at [facility]. The patient states that he was there yesterday, they did not do anything for him, the patient states that he still is having symptoms today. The patient states he is feeling somewhat lightheaded at times, and no syncope, no chest pain. Patient denies any severe shortness of breath or cough. The patient has daily pain or swelling. The patient denies any abdominal pain. The patient is on beta vega and flecainide for his atrial fibrillation. He is not anticoagulated. The patient denies any or GI complaints. The patient states nothing else makes symptoms better or worse. - Related Data Home Medications Medication Instructions Recorded Confirmed Flecainide 100 mg PO BID 05/27/18 03/02/19 Aspirin [Adult Aspirin] 81 mg PO DAILY 03/01/19 03/01/19 [place]-3/Dha/Epa/Fish Oil [Fish Oil 1 cap PO DAILY 03/01/19 03/02/19 1,000 mg Softgel] Previous Rx's Medication Instructions Recorded Metoprolol XL (24 HR) Succ [Toprol 25 mg PO DAILY #30 tab.er.24h 03/02/19 Xl] Allergies Allergy/AdvReac Type Severity Reaction Status Date / Time No Known Allergies Allergy Verified 03/01/19 17:02 Review of Systems: As mentioned per history of present illness and as follows. Constitutional: Negative for chills or fever HENT: Negative for sore throat. Eyes: Negative for visual disturbance Respiratory: Negative for shortness of breath. Cardiovascular: Positive for palpitations. Gastrointestinal: Negative for abdominal pain Genitourinary: Negative for dysuria Musculoskeletal: Negative for back pain. Skin: Negative for rash. Neurological: Negative for focal weakness Psychiatric/Behavioral: Negative for depression Past Medical History - Past Medical History Medical history: Reports: atrial fibrillation Surgical history: Reports: no surgical history Psychiatric history: Reports: no psych history - Social History Smoking Status: Current every day smoker Smokeless Tobacco Status: No Alcohol use: Reports: occasionally Drug use: Reports: none Physical Exam PHYSICAL EXAM Constitutional: Well developed, Well nourished, No acute distress, Non-toxic appearance. HENT: Normocephalic, Atraumatic, Bilateral external ears normal, Oropharynx moist, No oral exudates, Nose normal. Neck- Normal range of motion, No tenderness, Supple. Eyes: PERRL, EOMI, Conjunctiva normal,. Cardiovascular: Tachycardic rate with irregular rhythm without clicks, rubs, gallops or murmurs. Respiratory: Normal breath sounds, No respiratory distress, No wheezing, rhonchi, or crackles. GI: Soft, nontender, no evidence of guarding or peritoneal signs. Bowel sounds are active. Musculoskeletal: Good range of motion in all major joints. No tenderness to palpation or major deformities noted. +5/5 strength noted to all extremities. Integument: Warm, Dry, No erythema, No rash. No edema. Neurologic: Alert & oriented x 3, Normal sensory function, No focal deficits noted. CN II-XII grossly intact. - General General appearance: alert Course Vital Signs Temperature 98.2 F 03/26/19 18:29 Pulse Rate 131 03/26/19 18:29 Respiratory Rate 18 03/26/19 18:29 Blood Pressure 108/66 03/26/19 18:29 O2 Sat by Pulse Oximetry 97 03/26/19 18:29 Temperature 98.2 F 03/26/19 18:37 Pulse Rate 107 03/26/19 19:42 Respiratory Rate 20 03/26/19 19:42 Blood Pressure 109/66 03/26/19 19:42 O2 Sat by Pulse Oximetry 93 03/26/19 19:42 Oxygen Delivery Oxygen Delivery Room Air Arrhythmia/Palpitations - [facility] Narrative Medical decision making narrative: EKG was obtained that showed evidence of it appears to be a atrial flutter at a rate of 126 beats a minute. This could possibly an ectopic atrial tachycardia. Patient has somewhat prolonged QTC at [address] elevation, there is some ST segment depression diffusely possibly secondary to rate. Interpreted by myself. Patient has negative workup overall emergency room, negative chest x-ray, no evidence of CHF. The patient at this point time was placed on Cardizem and placed on Cardizem drip in the emergency room, patient is known atrial fibrillation with a rate around 105 beats a minute at reevaluation. The patient is resting comfortably. No other complaints at this time. The patient at this time did have case discussed with cardiology. Patient at this time was also placed on heparin drip here in emergency room. Patient is going to be admitted, case discussed with hospitalist and the patient will be admitted in stable condition to the telemetry floor. CRITICAL CARE TIME OF 35 MINUTES PERFORMING THIS INDIVIDUAL OUTSIDE OF SEPARATELY BILLABLE PROCEDURES. THIS INCLUDES BEDSIDE EVALUATION, INTERPRETATION OF EKG AND LAB TESTS AND CONSULTATIONS. Final impression 1. Paroxysmal atrial fibrillation - Lab Data Result diagrams: 03/26/19 18:32 03/26/19 18:32 Lab Results 03/26/19 03/26/19 03/26/19 Range/Units 18:32 18:32 18:32 WBC 13.5 H (4.3-11.1) K/mcL RBC 5.53 H (4.19-5.50) M/mcL Hgb 17.1 H (12.9-16.9) g/dL Hct 49.7 (37.5-50.1) % MCV 89.9 (83.0-100.0) fL MCH 30.9 (28.0-33.3) pg MCHC 34.4 (31.6-35.5) g/dL RDW 12.6 (11.5-14.5) % Plt Count 222 (140-400) K/mcL MPV 10.2 (9.4-12.4) fL Immature Gran % 0.5 (0-4) % Seg Neutrophils % 65.0 % Lymphocytes % 24.2 % Monocytes % 9.0 % Eosinophils % 0.8 % Basophils % 0.5 % Neutrophils # 8.8 (1.6-8.9) K/mcL Lymphocytes # 3.3 (0.6-4.6) K/mcL Monocytes # 1.2 (0.0-1.3) K/mcL Eosinophils # 0.1 (0.0-0.6) K/mcL Basophils # 0.1 (0.0-0.2) K/mcL PT 11.8 (9.4-12.1) Seconds INR 1.0 APTT 36.1 H (26.0-36.0) Seconds Sodium 141 (136-145) mEq/L Potassium 3.6 (3.5-5.1) mEq/L Chloride 109 H (98-107) mEq/L Carbon Dioxide 22 L (23-29) mEq/L BUN 15 (8-23) mg/dL Creatinine 0.92 (0.70-1.30) mg/dL Est GFR ( Amer) > 60 (> 60) Est GFR (Non-Af Amer) > 60 (> 60) BUN/Creatinine Ratio 16 (6-26) Glucose 103 (70-105) mg/dL Calculated Osmolality 293 (280-300) Calcium 9.7 (8.6-10.3) mg/dL Troponin I < 0.03 (< 0.04) ng/mL TSH 2.679 (0.340-5.600) mcIU/mL Critical Care Time Critical Care Time: Yes Total Critical Care Time: 35 Attestation: CRITICAL CARE TIME OF 35 MINUTES PERFORMING THIS INDIVIDUAL OUTSIDE OF SEPARATELY BILLABLE PROCEDURES. THIS INCLUDES BEDSIDE EVALUATION, INTERPR ETATION OF EKG AND LAB TESTS AND CONSULTATIONS.
[2019-03-26 19:12] LABS: Prothrombin Time 11.8 Seconds (9.4-12.1)
[2019-03-26 19:15] LABS: Activated Partial Thrombo Time 36.1 Seconds (26.0-36.0)
[2019-03-26 19:16] LABS: BUN/Creatinine Ratio 16 (6-26); Blood Urea Nitrogen 15 mg/dL (8-23); Calcium 9.7 mg/dL (8.6-10.3); Carbon Dioxide 22 mEq/L (23-29); Chloride 109 mEq/L (98-107); Glucose 103 mg/dL (70-105); Osmolality,Calculated 293 (280-300); Potassium 3.6 mEq/L (3.5-5.1); Sodium 141 mEq/L (136-145); eGFR For African Americans > 60 (> 60); eGFR For Non-African Americans > 60 (> 60)
[2019-03-26 19:17] LABS: Troponin I < 0.03 ng/mL (< 0.04)
[2019-03-26 19:29] LABS: Thyroid Stimulating Hormone 2.679 mcIU/mL (0.340-5.600)
[2019-03-26] MEDS ORDERED: *HR* Heparin 5,000 UNIT/ML VIAL IVP ONE (20:07)
[2019-03-26] MEDS ORDERED: *HR* Heparin 5,000 UNIT/ML VIAL IVP PRN ×2 (20:07)
[2019-03-26] MEDS ORDERED: Heparin 25,000 UNIT/250 ML D5W 25,000 UNIT/250 ML IV.SOLN IVC SCH (20:15)
[2019-03-26] MEDS ORDERED: Naloxone 0.4 MG/ML INJ IVP PRN (20:17)
--- NOTE | 2019-03-26 20:22 | Internal Med History&Physical ---
Date of Encounter: 03/26/19 Time of Encounter: 20:19 Internal Medicine - H&P: HPI Chief complaint: Palpitations History of present illness: Mr. Mota is a 63 year old male with a past medical history of atrial fibrillation currently on rhythm control with flecainide who presented to the ED due to 3 day history of palpitations associated with shortness of breath and li ghtheadedness. Episodes occurring intermittently typically when he is active. He does report several episodes that awoke him up at night. These episodes are associated with shortness of breath and lightheadedness. Denies any chest pain. Patient had similar presentation earlier this month with Cherry avelar with RVR. Patient was seen by cardiology who added metoprolol XL 25 mg to his Flecainide regimen. No reports of recent illness. Patient reports she has been compliant with his medications. On arrival patient was found to have a heart rate in the 120s. Blood pressure was in the 90s to 100s. EKG showed evidence of atrial flutter with a heart rate of 126. TSH within normal limits. Chest x-ray showed no acute cardiopulmonary abnormality. Patient given a loading dose of Cardizem and placed on Cardizem drip. Heart rate now in the 90s to low 100s. We will admit for further evaluation and cardiology consult. Past Med Surg Social Fam HX - Past Medical History Medical history: atrial fibrillation Psychiatric history: no psych history - Past Surgical History Surgical History: no surgical history - Social History Smoking Status: Current every day smoker Smokeless Tobacco Status: No Alcohol use: occasionally Drug use: none - Family History Mother Hx Family Cancer: Yes (lung, pancreatic) Father Hx Family Cancer: Yes (brain) Internal Medicine - H&P: Meds Flecainide 100 mg PO BID 05/27/18 [History] Aspirin [Adult Aspirin] 81 mg PO DAILY 03/01/19 [History] [place]-3/Dha/Epa/Fish Oil [Fish Oil 1,000 mg Softgel] 1 cap PO DAILY 03/01/19 [History] Metoprolol XL (24 HR) Succ [Toprol Xl] 25 mg PO DAILY #30 tab.er.24h 03/02/19 [Rx] Allergy/AdvReac Type Severity Reaction Status Date / Time No Known Allergies Allergy Verified 03/01/19 17:02 All Systems PM: A 10-system review of systems was performed and is negative for pertinent findings except as documented above in the HPI. - Constitutional Constitutional: no chills, no fever(s), no night sweats - EENT Eyes: no change in vision, no discharge, no pain, no photophobia Ears: no ear discharge, no ear pain, no tinnitus Nose, mouth and throat: no dysphagia, no nasal discharge, no neck pain, no sore throat - Cardiovascular Cardiovascular ROS IM: no chest pain, no diaphoresis, no dyspnea, no lightheadedness, no palpitations, no syncope - Respiratory Respiratory: no cough, no dyspnea, no wheezing, no excessive phlegm production - Gastrointestinal Gastrointestinal: no abdominal pain, no diarrhea, no hematemesis, no hematochezia, no melena, no nausea, no vomiting - Musculoskeletal Musculoskeletal ROS IM: no numbness, no tingling - Integumentary Integumentary IM: no rash, no unusual bruising - Neurological Neurological ROS: no confusion, no convulsions, no focal weakness, no numbness, no tingling, no tremor(s) - Hematologic/Lymphatic Hematologic/Lymphatic: no easy bruising - Constitutional Vitals: Temp Pulse Resp BP Pulse Ox 98.2 F 107 20 109/66 93 03/26/19 18:37 03/26/19 19:42 03/26/19 19:42 03/26/19 19:42 03/26/19 19:42 Exam: General: Alert and oriented Skin:Normal color, no rash, no lesions. HEENT:EOM, pupils equal, round and reactive. Cardiovascular:Normal S1 & S2, irregularly irregular Lungs:Normal breath sounds, no wheezes or crackles. Abdomen:Soft, non-tender, no rigidity. Extremities:No deformity, no edema or tenderness, no joint swelling or clubbing. Neurological:Normal cognition and motor skills. Pulses:Carotid and radial pulses normal +2. Rest of the physical exam is non contributory Internal Med - H&P Results - Labs CBC & Chem 7: 03/27/19 02:27 03/27/19 02:27 Labs: Short CBC 03/26/19 Range/Units 18:32 WBC 13.5 H (4.3-11.1) K/mcL Hgb 17.1 H (12.9-16.9) g/dL Hct 49.7 (37.5-50.1) % Plt Count 222 (140-400) K/mcL Neutrophils # 8.8 (1.6-8.9) K/mcL BMP 03/26/19 18:32 Sodium 141 Potassium 3.6 Chloride 109 H Carbon Dioxide 22 L BUN 15 Creatinine 0.92 Glucose 103 Calcium 9.7 Cardiac Enzymes 03/26/19 Range/Units 18:32 Troponin I < 0.03 (< 0.04) ng/mL - Impressions ITS Impressions Chest X-Ray 03/26/19 18:32 IMPRESSION: No acute process. D/ / Jaiden Perez MD / Jaiden Perez MD Interpreting Provider: Jaiden Perez MD - Assessment and Plan (1) Atrial fibrillation with RVR Current Visit: No Status: Resolved Assessment and plan: History of atrial fibrillation currently on rhythm control with flecainide and beta vega presenting with atrial fibrillation with RVR with EKG showing heart rate in the 120s associated with lightheadedness and shortness of breath. Initial troponin negative. Not currently on anticoagulation likely due to a c hads vasc score of 0. Patient currently takes a baby aspirin. Placed on Cardizem drip now with heart rate around 100 bpm. Case discussed with cardiology who recommended heparin drip as well. Patient otherwise hemodynamically stable. No reports of chest pain. -Continue Cardizem and heparin drip -Telemetry -Trend troponin -Cardiology consult for management of patient's rhythm control (2) Leukocytosis Current Visit: No Status: Acute Assessment and plan: Neutrophilic predominant Leukocytosis of 13.5. No evidence of pulmonary, GI or source of infection. Chest x-ray was unremarkable. She does not endorse any dysuria. I suspect some of this may be dehydration. - We will continue to hydrate patient and monitor response. Qualifiers: Leukocytosis type: unspecified Qualified Code(s): D72.829 - Elevated white blood cell count, unspecified (3) DVT prophylaxis Current Visit: No Status: Acute Assessment and plan: Currently on heparin drip - Time Spent With Patient Total time spent is greater than 50% in coordination of care (as documented) at patient's floor/unit and/or counseling patient:
[2019-03-27 03:21] LABS: Basophils # 0.1 K/mcL (0.0-0.2); Basophils % 0.9 %; Eosinophils # 0.2 K/mcL (0.0-0.6); Eosinophils % 1.9 %; Hematocrit 49.4 % (37.5-50.1); Hemoglobin 16.8 g/dL (12.9-16.9); Immature Granulocytes % 0.7 % (0-4); Lymphocytes # 3.8 K/mcL (0.6-4.6); Lymphocytes % 34.9 %; Mean Corpuscular Hemoglobin 31.2 pg (28.0-33.3); Mean Corpuscular Volume 91.8 fL (83.0-100.0); Mean Platelet Volume 10.9 fL (9.4-12.4); Monocytes # 1.2 K/mcL (0.0-1.3); Monocytes % 10.7 %; Neutrophils # 5.5 K/mcL (1.6-8.9); Platelet Count 214 K/mcL (140-400); Red Blood Count 5.38 M/mcL (4.19-5.50); Segmented Neutrophils % 50.9 %; White Blood Count 10.8 K/mcL (4.3-11.1)
[2019-03-27 03:31] LABS: Prothrombin Time 11.6 Seconds (9.4-12.1)
[2019-03-27 03:42] LABS: BUN/Creatinine Ratio 18 (6-26); Blood Urea Nitrogen 14 mg/dL (8-23); Carbon Dioxide 21 mEq/L (23-29); Chloride 107 mEq/L (98-107); Glucose 108 mg/dL (70-105); Osmolality,Calculated 285 (280-300); Potassium 3.4 mEq/L (3.5-5.1); Sodium 137 mEq/L (136-145); eGFR For African Americans > 60 (> 60); eGFR For Non-African Americans > 60 (> 60)
[2019-03-27 03:43] LABS: Troponin I < 0.03 ng/mL (< 0.04)
[2019-03-27 03:46] LABS: Activated Partial Thrombo Time 142.7 Seconds (26.0-36.0)
[2019-03-27] MEDS ORDERED: Potassium Chloride Elixir 20 MEQ/15 ML UDC PO ONE (04:17)
[2019-03-27] MEDS ORDERED: 0.9 % Sodium Chloride 1,000 ML IVC SCH (04:30)
--- NOTE | 2019-03-27 09:31 | Cardiology Consult Note ---
Date of Encounter: 03/27/19 Time of Encounter: 09:00 Assessment and Plan (1) Atrial fibrillation with RVR Current Visit: No Status: Resolved 1. Known hx of PAF on Flecainide; 100mg PO BID; recent hosp. stay for a-fib with BB added. 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 Currently A-flutter 70-90s. Previously on ASA with CHADs-VASC 0. 2. Previous echo reviewed 03/01/2019 LVEF 60-65%. Normal LV chamber size, wall thickness and function. Normal left ventricular diastolic function. Normal right ventricular structure and function. No evidence of pulmonary hypertension. No significant valvular dysfunction. NSWMA 3. Troponins negative x 2 without any chest pain. 4. Magnesium, TSH stable. 5.. 24hr telemetry reviewed with ave. HR 90, currently a-flutter rate-controlled on Cardizem gtt HR 70s. 6. On Heparin gtt, continue, until further recs. 7. EKG ordered. Will review and adjust recs. 8. On Cardizem gtt, will stop, add home dose Toprol. 9. Currently NPO, continue until further recs. 10. Discussed and reviewed with Dr. Velásquez. LEONILA/cardioversion today. Will require 30-day anticoagulation. WIll consider Flecainide adjustment and EP consult s/p cardioversion. WIll f/u with [facility] s/p admission. Discussion w patient/family: The assessment and plan as outlined above was discussed with the patient and/or family members who expressed understanding and agreement. All questions were answered. Thank you for involving us in the care of your patient. Please call with any questions. History of Present Illness Consult date: 03/27/19 Consult reason: palpitations Chief complaint: palpitations History of present illness: Mr. Mota is a 63 year old male with PMH of A-fib, on rhythm control with flecainide, smoker. Complaints of 3 day heart palpitations coincides with lightheadedness, and mild SOB. Denies chest pain, syncope, pedal edema, headaches, blurred vision, n/v, n/t. Recently treated/admission for same complaints earlier this month and Toprol was added to medication regimen. Denies other alleviating/aggravating factors. Reports compliant with current medications. Currently, admits to mild heart palpitations without any chest pain. Prefers to be treated with [facility] in the future. Past Med Surg Social Fam HX - Past Medical History Attestation: Yes The following information was validated with the patient. Source: patient, old records reviewed Medical history: atrial fibrillation Psychiatric history: no psych history - Past Surgical History Surgical History: no surgical history - Social History Smoking Status: Current every day smoker Packs per day: 1/2 Smokeless Tobacco Status: No Alcohol use: occasionally Drug use: none - Family History Mother Hx Family Cancer: Yes (lung, pancreatic) Father Hx Family Cancer: Yes (brain) Medications and Allergies Flecainide 100 mg PO BID 05/27/18 [History] Aspirin [Adult Aspirin] 81 mg PO DAILY 03/01/19 [History] [place]-3/Dha/Epa/Fish Oil [Fish Oil 1,000 mg Softgel] 1 cap PO DAILY 03/01/19 [Hi story] Metoprolol XL (24 HR) Succ [Toprol Xl] 25 mg PO DAILY #30 tab.er.24h 03/02/19 [Rx] Allergy/AdvReac Type Severity Reaction Status Date / Time No Known Allergies Allergy Verified 03/01/19 17:02 All Systems Review: The remainder of the systems were reviewed and are negative - Cardiovascular Cardiovascular: as per HPI Physical Examination Vital Signs, Last 4 Hours Temp Pulse Resp BP Pulse Ox 03/27/19 07:04 97.4 F L 69 18 102/70 96 General: Conversant, No Apparent Distress HEENT: Atraumatic, Normocephaly, Mucus Membranes Moist Neck: No JVD, Normal carotid pulses Cardiac: No Murmur, Other (irregularly irregular) Lungs: Normal Breath Sounds, No Wheeze, Rales, Rhonchi Neuro: Alert and responsive, No focal deficits noted Abdomen: Soft, Non-Tender Skin: No rashes noted on visualized skin Musculoskeletal: No Chest Wall Tenderness Extremities: No Clubbing, No Cyanosis, No Edema, Normal Pulses Results 03/27/19 02:27 03/27/19 02:27 Lab Results Laboratory Tests 03/26/19 03/27/19 03/27/19 18:32 02:27 02:27 Hgb 16.8 Hct 49.4 BUN 14 Creatinine 0.77 Est GFR (Non-Af Amer) > 60 TSH 2.679 Laboratory Tests 03/26/19 03/27/19 18:32 02:27 Troponin I < 0.03 < 0.03 Laboratory Tests 03/27/19 02:27 Sodium 137 Potassium 3.4 L Calcium 9.0 Magnesium 2.0 Impressions Chest X-Ray 03/26/19 18:32 IMPRESSION: No acute process. D/ / Jaiden Perez MD / Jaiden Perez MD Interpreting Provider: Jaiden Perez MD Active Medications Heparin Sodium (Porcine) (Heparin) 6,500 unit 70 unit/kg (6500 unit) IVP Q6HR P RN PRN Reason: SEE COMMENTS Stop: 09/25/19 20:08 Heparin Sodium (Porcine) (Heparin) 3,300 unit 35 unit/kg (3300 unit) IVP Q6H PRN PRN Reason: SEE COMMENTS Stop: 09/25/19 20:08 Diltiazem HCl 50 mg/ Sodium (Chloride) 50 mls @ 5 mls/hr IVC .Q10H ALIYAH Stop: 09/25/19 19:01 Last Infusion: 03/27/19 07:09 Dose: 2.5 mg/hr, 2.5 mls/hr Documented by: Heparin Sodium/Dextrose (Heparin 25,000 Unit/250 Ml D5w) 25,000 unit in 250 mls @ 13.018 mls/hr IVC .[id number] ALIYAH; Protocol Stop: 09/25/19 20:16 Last Titration: 03/27/19 04:07 Dose: 12 unit/kg/hr, 11.2 mls/hr Documented by: Sodium Chloride (0.9 % Sodium Chloride) 1,000 mls @ 75 mls/hr IVC .[id number] ALIYAH Stop: 03/27/19 17:49 Last Admin: 03/27/19 04:38 Dose: 75 mls/hr Documented by: Naloxone HCl (Narcan) 0.4 mg IVP Q2MPRN PRN PRN Reason: SEE COMMENTS Stop: 09/25/19 20:18 - Imaging and Cardiology Chest Xray: report reviewed Echo: report reviewed (Previous Echo 03/02/19 EF 60-65%; NSWMA) Consult Discharge Plan - Plan Referrals: NONE,PCP [Primary Care Provider] -
[2019-03-27] MEDS ORDERED: Metoprolol XL (24 HR) Succ 25 MG TAB.ER.24H PO SCH (10:12)
--- NOTE | 2019-03-27 11:27 | Electrophysiology Consult Note ---
<Gonzalez Sanchez - Last Filed: 03/27/19 11:28> Date of Encounter: 03/27/19 Time of Encounter: 11:30 Assessment and Plan (1) Atrial flutter Status: Acute Per EP: Currently a flutter in the 70s with current QTC 414 ms. Apparent history of flecainide therapy 200 mg by mouth twice a day up to a few months ago. 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 Had hospitalization a few weeks ago for breakthrough PAF and beta vega added by cardiology. Presented with lightheadedness and found to be in atrial flutter. Troponins negative; magnesium and TSH stable. Cardizem drip now off. On beta vega. Has LEONILA/DC cardioversion pending today. Regarding long-term anticoagulation, previously on aspirin only for [id number] 2 = 0. Currently on IV heparin drip. Had discussion with patient regarding a nticoagulation for at least one month and interested in DOAC-- assisted card provided for [place] 5mg PO BID. EP consult for recommendations regarding titration of flecainide-- will discuss and review with Dr. Jose Miguel Whitfield with anticipation of up titration of flecainide. Qualifiers: Atrial flutter type: unspecified Qualified Code(s): I48.92 - Unspecified atrial flutter Discussion w patient/family: The assessment and plan as outlined above was discussed with the patient and/or family members who expressed understanding and agreement. All questions were answered. Thank you for involving us in the care of your patient. Please call with any questions. History of Present Illness Consult date: 03/27/19 Requesting physician: Gerber Velásquez Consult reason: Antiarrhythmic recommendations Chief complaint: Lightheadedness History of present illness: Previous records reviewed: "Mr. Mota is a 63 year old male with PMH of A-fib, on rhythm control with flecainide, smoker. Complaints of 3 day heart palpitations coincides with lightheadedness, and mild SOB. Denies chest pain, syncope, pedal edema, headaches, blurred vision, n/v, n/t. Recently treated/admission for same complaints earlier this month and Toprol was added to medication regimen. Denies other alleviating/aggravating factors. Reports compliant with current medications. Currently, admits to mild heart palpitations without any chest pain. Prefers to be treated with [facility] in the future". Currently stable. Awaiting LEONILA cardioversion. Past Med Surg Social Fam HX - Past Medical History Attestation: Yes The following information was validated with the patient. Source: patient, old records reviewed, obtained from family Medical history: atrial fibrillation Psychiatric history: no psych history - Past Surgical History Surgical History: no surgical history - Social History Smoking Status: Current every day smoker Packs per day: 1/2 Smokeless Tobacco Status: No Alcohol use: occasionally Drug use: none - Family History Mother Hx Family Cancer: Yes (lung, pancreatic) Father Hx Family Cancer: Yes (brain) Medications and Allergies Apixaban [Eliquis] 5 mg PO BID 30 Days #60 tablet 03/30/19 [Rx] Flecainide 150 mg PO Q12HR 30 Days #60 tablet 03/30/19 [Rx] Allergy/AdvReac Type Severity Reaction Status Date / Time No Known Allergies Allergy Verified 04/06/19 07:12 All Systems Review: The remainder of the systems were reviewed and are negative - Cardiovascular Cardiovascular: as per HPI, lightheadedness Physical Examination Vital Signs, Last 4 Hours Pulse Resp BP Pulse Ox 03/27/19 09:26 82 16 112/75 96 General: Conversant, No Apparent Distress HEENT: Atraumatic, Normocephaly, Mucus Membranes Moist Neck: No JVD, Normal carotid pulses Cardiac: Normal S1 and S2, No Murmur, Other (irregularly irregular) Lungs: Normal Breath Sounds, No Wheeze, Rales, Rhonchi Neuro: Alert and responsive, No focal deficits noted Abdomen: Soft, Non-Tender Skin: No rashes noted on visualized skin Musculoskeletal: No Chest Wall Tenderness Extremities: No Clubbing, No Cyanosis, No Edema, Normal Pulses Results 03/27/19 02:27 03/27/19 02:27 Lab Results Laboratory Tests 03/26/19 03/27/19 03/27/19 18:32 02:27 02:27 WBC 10.8 Hgb 16.8 Hct 49.4 INR 1.0 Creatinine Est GFR (Non-Af Amer) Magnesium Troponin I < 0.03 TSH 2.679 03/27/19 02:27 WBC Hgb Hct INR Creatinine 0.77 Est GFR (Non-Af Amer) > 60 Magnesium 2.0 Troponin I < 0.03 TSH ITS Impressions Chest X-Ray 03/26/19 18:32 IMPRESSION: No acute process. D/ / Jaiden Perez MD / Jaiden Perez MD Interpreting Provider: Jaiden Perez MD Active Medications Heparin Sodium (Porcine) (Heparin) 6,500 unit 70 unit/kg (6500 unit) IVP Q6HR P RN PRN Reason: SEE COMMENTS Stop: 09/25/19 20:08 Heparin Sodium (Porcine) (Heparin) 3,300 unit 35 unit/kg (3300 unit) IVP Q6H PRN PRN Reason: SEE COMMENTS Stop: 09/25/19 20:08 Heparin Sodium/Dextrose (Heparin 25,000 Unit/250 Ml D5w) 25,000 unit in 250 mls @ 13.018 mls/hr IVC .[id number] [facility]; Protocol Stop: 09/25/19 20:16 Last Titration: 03/27/19 11:10 Dose: 12.04 unit/kg/hr, 11.2 mls/hr Documented by: Sodium Chloride (0.9 % Sodium Chloride) 1,000 mls @ 75 mls/hr IVC .[id number] [facility] Stop: 03/27/19 17:49 Last Admin: 03/27/19 04:38 Dose: 75 mls/hr Documented by: Metoprolol Succinate (Toprol Xl) 25 mg PO DAILY [facility] Stop: 09/26/19 10:13 Last Admin: 03/27/19 11:15 Dose: 25 mg Documented by: Naloxone HCl (Narcan) 0.4 mg IVP Q2MPRN PRN PRN Reason: SEE COMMENTS Stop: 09/25/19 20:18 - Imaging and Cardiology Echo: report reviewed - EKG Interpretation EKG results cardiology: personally reviewed (Atrial flutter in the 70s) Consult Discharge Plan - Plan Referrals: Urvashi Nguyễn, MONOGRAM TECHNICIAN [Advanced Practice Nurse] - (Web request sent) Prescriptions: Apixaban [Eliquis] 5 mg PO BID 30 Days #60 tablet Flecainide 150 mg PO Q12HR 30 Days #60 tablet <Jose Miguel Whitfield - Last Filed: 04/06/19 10:35> Date of Encounter: 04/06/19 - Attending Attestation I have personally performed a face to face evaluation on this patient. I have reviewed and agree with the care plan. History and Exam by me shows: Agree with cardioversion, resume flecainide 150 BID. Assessment and Plan Discussion w patient/family: The assessment and plan as outlined above was discussed with the patient and/or family members who expressed understanding and agreement. All questions were answered. Thank you for involving us in the care of your patient. Please call with any questions. History of Present Illness History of present illness: Mr. Mota is a 63 year old male All Systems Review: The remainder of the systems were reviewed and are negative Results 03/28/19 07:15 03/28/19 07:15
--- NOTE | 2019-03-27 12:11 | Internal Med Progress Note ---
Hospitalist Progress Note - Encounter Date of Encounter: 03/27/19 Time of Encounter: 12:09 - Subjective Interval History: Patient was seen and examined at bedside today. Pt still complaining of palpitation and chest pain. Patient came in to the hospital yesterday due to his "heart was racing". Troponin has been negative so far. Cardiology consult. We will continue to monitor patient. - Exam Vitals: Temp Pulse Resp BP Pulse Ox 97.6 F 75 18 101/69 99 03/27/19 11:48 03/27/19 11:48 03/27/19 11:48 03/27/19 11:48 03/27/19 11:48 Exam: General: Alert and oriented Skin:Normal color, no rash, no lesions. HEENT:EOM, pupils equal, round and reactive. Cardiovascular:Normal S1 & S2, irregularly irregular Lungs:Normal breath sounds, no wheezes or crackles. Abdomen:Soft, non-tender, no rigidity. Extremities:No deformity, no edema or tenderness, no joint swelling or clubbing. Neurological:Normal cognition and motor skills. - Assessment and Plan (1) Atrial fibrillation with RVR Current Visit: No Status: Resolved Assessment and Plan: Patient yesterday presents to hospital with chest pain and palpitation. On initial presentation patient on telemetry atrial fibrillation with rvr. Patient was placed on Cardizem and heparin drip. - Cardio consult placed. Cardiology recommended discontinue Cardizem drip and continue heparin drip. - Cardizem drip discontinued - Heparin drip continued - Electrohysiologi on consult. Patient to underggo cardioversion and LEONILA today - We will keep patient nothing by mouth. (2) Leukocytosis Current Visit: No Status: Acute Assessment and Plan: Neutrophilic predominant Leukocytosis of 13.5. Signs of active infection on presentation. White count trended down today to 10.8.. (3) DVT prophylaxis Current Visit: No Status: Acute Assessment and Plan: Currently on heparin drip - Time Spent with Patient Total time spent is greater than 50% in coordination of care (as documented) at patient's floor/unit and/or counseling patient: 25 - 35 minutes Plan of Care Discussed with: patient Internal Medicine: Result - Labs CBC & Chem 7: 03/27/19 02:27 03/27/19 02:27 Labs: Short CBC 03/26/19 03/27/19 Range/Units 18:32 02:27 WBC 13.5 H 10.8 (4.3-11.1) K/mcL Hgb 17.1 H 16.8 (12.9-16.9) g/dL Hct 49.7 49.4 (37.5-50.1) % Plt Count 222 214 (140-400) K/mcL Neutrophils # 8.8 5.5 (1.6-8.9) K/mcL BMP 03/26/19 03/27/19 18:32 02:27 Sodium 141 137 Potassium 3.6 3.4 L Chloride 109 H 107 Carbon Dioxide 22 L 21 L BUN 15 14 Creatinine 0.92 0.77 Glucose 103 108 H Calcium 9.7 9.0 Cardiac Enzymes 03/26/19 03/27/19 Range/Units 18:32 02:27 Troponin I < 0.03 < 0.03 (< 0.04) ng/mL - ABG Interpretation ABG results: PT/INR, D-dimer PT 11.6 Seconds (9.4-12.1) 03/27/19 02:27 - Impressions Impressions Chest X-Ray 03/26/19 18:32 IMPRESSION: No acute process. D/ / Jaiden Perez MD / Jaiden Perez MD Interpreting Provider: Jaiden Perez MD Consult Discharge Plan - Plan Referrals: NONE,PCP [Primary Care Provider] - (2) Leukocytosis Qualifiers: Leukocytosis type: unspecified Qualified Code(s): D72.829 - Elevated white blood cell count, unspecified
[2019-03-27] MEDS ORDERED: Lidocaine Viscous Oral Soln 15 ML SOLUTION MM PRN (13:00)
[2019-03-27] MEDS ORDERED: 0.9 % Sodium Chloride 500 ML IVC ONE (13:00)
[2019-03-27] MEDS ORDERED: *HR* FentaNYL (PF) 100 MCG/2 ML VIAL IVP PRN (13:00)
[2019-03-27] MEDS: *HR* Midazolam HCl 5 MG/5 ML VIAL IVP PRN ×2 (13:35→13:50)
--- NOTE | 2019-03-27 15:24 | Event Note ---
Date of Encounter: 03/27/19 Time of Encounter: 15:00 - Cardiology Event Note Status post LEONILA/DC cardioversion. Currently sinus bradycardia in the 40s to 50s. Discussed and reviewed with Dr. Jose Miguel Whitfield, will increase flecainide to 150 mg by mouth twice a day. Will initiate Eliquis 5mg PO BID and DC IV Hep g tt. Will DC BB. We will monitor ECGs. Plan for outpatient EP follow-up and possible ablation if clinically warranted. All questions answered. Patient and verbalized understanding and agreed with plan.
[2019-03-27] MEDS: Apixaban 5 MG TABLET PO SCH ×2 (15:43→21:58)
--- NOTE | 2019-03-27 21:07 | Electrocardiograph Report ---
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
--- NOTE | 2019-03-27 21:09 | Electrocardiograph Report ---
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
[2019-03-28 07:35] LABS: Basophils # 0.1 K/mcL (0.0-0.2); Basophils % 0.9 %; Eosinophils # 0.1 K/mcL (0.0-0.6); Eosinophils % 1.6 %; Hematocrit 47.9 % (37.5-50.1); Immature Granulocytes % 0.7 % (0-4); Lymphocytes % 22.6 %; Mean Corpuscular HGB Conc 33.4 g/dL (31.6-35.5); Mean Corpuscular Hemoglobin 30.7 pg (28.0-33.3); Mean Corpuscular Volume 91.9 fL (83.0-100.0); Mean Platelet Volume 10.5 fL (9.4-12.4); Monocytes # 0.9 K/mcL (0.0-1.3); Monocytes % 10.5 %; Neutrophils # 5.7 K/mcL (1.6-8.9); Platelet Count 195 K/mcL (140-400); Red Blood Count 5.21 M/mcL (4.19-5.50); Segmented Neutrophils % 63.7 %; White Blood Count 8.9 K/mcL (4.3-11.1)
[2019-03-28 07:53] LABS: BUN/Creatinine Ratio 19 (6-26); Blood Urea Nitrogen 14 mg/dL (8-23); Carbon Dioxide 22 mEq/L (23-29); Chloride 108 mEq/L (98-107); Glucose 120 mg/dL (70-105); Osmolality,Calculated 290 (280-300); Potassium 4.2 mEq/L (3.5-5.1); Sodium 139 mEq/L (136-145); eGFR For African Americans > 60 (> 60); eGFR For Non-African Americans > 60 (> 60)
--- NOTE | 2019-03-28 08:10 | Cardiology Progress Note ---
Date of Encounter: 03/28/19 Time of Encounter: 07:30 Assessment and Plan (1) Atrial flutter Current Visit: Yes Status: Acute Per Cardiology: -Patient with known a.fib/flutter history. Patient is s/p LEONILA guided DCCV yesterday. -Patient was seen by EP and was recommended for increased flecanide to 150mg BID, currently s/p 2 total doses of increased flecanide. -ECG baseline with a.flutter, HR 82. QT 382/QTc 420ms. -ECG 03/28/19 with SR, HR 63. QT 422/ QTc 430ms. -Not on BB due to bradycardia. -Patient will need AC for at least one month, started on eliquis. Assistance card given. -Continue flecanide. Patient will need to be inpatient for 5 total doses of increased flecanide. -Continue telemetry. ECGs daily. -Will continue to monitor. Qualifiers: Atrial flutter type: unspecified Qualified Code(s): I48.92 - Unspecified atrial flutter Discussion w patient/family: The assessment and plan as outlined above was discussed with the patient who expressed understanding and agreement. All questions were answered. Thank you for involving us in the care of your patient. Please call with any questions. Discussed and reviewed with . Subjective Principal diagnosis: a.fib Interval history: Patient is s/p LEONILA guided DCCV yesterday. Denies complaints today. Patient anxious for discharge. Objective Vital Signs, Last 4 Hours Temp Pulse Resp BP Pulse Ox 03/28/19 07:19 97.8 F 60 16 111/69 97 03/28/19 04:08 97.6 F 66 16 114/71 97 General: Conversant, No Apparent Distress HEENT: Atraumatic, Normocephaly, Mucus Membranes Moist Neck: No JVD, Normal carotid pulses Cardiac: Reg Rate and Rhythm, Normal S1 and S2, No Murmur Lungs: Normal Breath Sounds, No Wheeze, Rales, Rhonchi Neuro: Alert and responsive, No focal deficits noted Abdomen: Soft, Non-Tender Skin: No rashes noted on visualized skin Musculoskeletal: No Chest Wall Tenderness Extremities: No Clubbing, No Cyanosis, No Edema, Normal Pulses Results 03/28/19 07:15 03/28/19 07:15 Lab Results Impressions Transesophageal w/Cardioversion 03/27/19 10:38 Impressions: No LA or ALPHONSE thrombus. Successful synchronized direct current cardioversion of atrial flutter. LVEF 50 %, Normal LV size and systolic function. Normal right ventricle size and function. Mild tricuspid regurgitation. No pulmonary hypertension. PFO with Bidirectional shunt. Left Ventricular Wall Motion: Transesophageal Echo Findings All wall segments showed normal motion. Medication Given: Time Medication Dose Units Route 13:35 Versed 2 mg IV 13:35 Fentanyl 50 mcg IV 13:50 Versed 1 mg IV Contrast Type Amount Agitated saline 10 Findings: Study Quality * Technically adequate exam. ECG Findings * Fib flutter without ectopy Left Ventricle * LVEF 50 % * Normal LV size and systolic function. * There is no LV thrombus. * Right Ventricle * Normal right ventricle size and function. Left Atrium * Within normal limits. * No thrombus present. * LA appendage is normal in appearance. Right Atrium * Within normal limits. Interatrial Septum * PFO with Bidirectional shunt on color Doppler and saline contrast study. Aortic Valve * Normal structure and function. Mitral Valve * Normal structure and function * Trace/trivial mitral regurgitation. Tricuspid Valve * Normal structure. * Mild tricuspid regurgitation. * No pulmonary hypertension. Pulmonic Valve * Normal structure and function. * No pulmonic regurgitation. Aorta * The aortic root is not dilated. Pericardium * No pericardial effusion. Pulmonary Artery * Normal pulmonary artery. Pulmonary Veins * Normal pulmonary veins. Procedure Summary: After explaining the risks, benefits, and alternatives of the procedure to the patient in detail and answering all questions to satisfaction, an informed consent was obtained in writing. The patient was NPO for the six hours prior to the procedure. The patient denied dysphagia, odynophagia, and loose teeth. The patient was monitored with periodic automated blood pressures and continuous pulse oximetry and telemetry. Continuous oxygen was administered by NM. The patient was placed in the full upright position and the posterior oropharynx was anesthetized as above and complete suppression of the gag reflex was obtained. The patient was then placed in the left lateral decubitus position, the neck was flexed, and a bite block was placed in the patient's mouth. IV sedation was administered. Once adequate sedation was achieved, a well-lubricated anteflexed multipoint intraesophageal echocardiographic probe was inserted into the midline posterior oropharynx. Gentle pressure was applied as the patient swallowed and the esophagus was intubated without difficulty. The scope was advanced to the mid esophagus without encountering resistance. Images were obtained from the mid and upper esophagus. Images from the gastric globe were obtained. The intra-atrial septum was assessed by color-flow Doppler and agitated saline. The scope was then rotated approximately 180 degrees and withdrawn, visualizing the length of the aorta. The scope was then slowly withdrawn as the patient was continually suctioned. The patient tolerated the procedure well. Following informed consent , the patient was sedated with versed and fentanyl. After adequate sedation was achieved, cardioversion in the AP approach was successful using 50 Joules of biphasic energy. Normal sinus rhythm was restored after 1 attempt(s). The patient was monitored for the standard 30 minutes post procedure. Complications: None History: History of Smoking Years 50 Packs 1 Previous Echo 03/02/2019 BP 108 / 93 Updated by Jeni Do MD on 03/27/2019 2:23:53 PM electronically signed on 03/27/2019 2:25:32 PM with status of Final Wall Motion [place]: 1=Normal, 2=Hypokinesis, 3=Akinesis, 4=Dyskinesis, 5=Aneurysmal, 6=Hyperkinetic, X=Not Visualized (Blank)=Missing Wall MotionIndex LEONILA Total of all scored black 17 Index Divided by ---- = 1 Total number of black scored 17 Active Medications Apixaban (Eliquis) 5 mg PO BID [facility]; Protocol Stop: 09/26/19 15:15 Last Admin: 03/27/19 21:58 Dose: 5 mg Documented by: Flecainide Acetate (Flecainide) 150 mg PO Q12HR [facility] Stop: 09/26/19 18:01 Last Admin: 03/28/19 05:45 Dose: 150 mg Documented by: Naloxone HCl (Narcan) 0.4 mg IVP Q2MPRN PRN PRN Reason: SEE COMMENTS Stop: 09/25/19 20:18 - Imaging and Cardiology Echo: report reviewed - EKG Interpretation EKG results cardiology: personally reviewed (ECG with SR.), other (Telemetry reviewed with average HR previous 12 hours noted to be 61, SR. PVCs, PACs noted.) Consult Discharge Plan - Plan Referrals: NONE,PCP [Primary Care Provider] -
[2019-03-28] MEDS: Apixaban 5 MG TABLET PO SCH ×2 (08:21→20:22)
--- NOTE | 2019-03-28 11:00 | Internal Med Progress Note ---
Hospitalist Progress Note - Encounter Date of Encounter: 03/28/19 Time of Encounter: 11:02 - Subjective Interval History: She was seen and examined at bedside today. Patient denied any palpitation. Patient denied any chest pain, nausea, vomiting, and diaphoresis. Patient denied any acute issues and concerns after cardioversion yesterday. - Exam Vitals: Temp Pulse Resp BP Pulse Ox 97.8 F 60 16 111/69 97 03/28/19 07:19 03/28/19 07:19 03/28/19 07:19 03/28/19 07:19 03/28/19 07:19 Exam: General: A & O 3, In no acute distress HENNT: PERRLA. Head atraumatic and makes supple CVS S1 and S2 regular, no murmur RS: Clear to air entry bilaterally, no wheeze, no crackles Abdomen: Soft and nontender. Bowel sounds normal 4 Extremities: No cyanosis, clubbing, and edema Neurology: Cranial II-XIII normal. Motor strength 5/5 bilaterally. Sensation intact - Assessment and Plan (1) Atrial fibrillation with RVR Current Visit: No Status: Resolved Assessment and Plan: Patient is status post cardioversion. EP was consulted by cardiology. Patient's second dose was increased to 150 mg twice a day. Patient needs to be in the hospital last 5 dose of flecainide. Patient currently status post 2 doses of flecainide 150 mg. We will continue to monitor patient. Anticipated discharge on March 30Saturday in the a.m. Continue follow cardiology recommendation. Patient will need 1 month off and accommodation on discharge. Patient is currently on a liquid 5 mg twice a day. (2) Leukocytosis Current Visit: No Status: Acute Assessment and Plan: Leukocytosis has resolved. WBC today is 8.9. (3) DVT prophylaxis Current Visit: No Status: Acute Assessment and Plan: Eliquis 5 mg BID. Heparin drip stopped - Time Spent with Patient Total time spent is greater than 50% in coordination of care (as documented) at patient's floor/unit and/or counseling patient: 25 - 35 minutes Plan of Care Discussed with: patient Internal Medicine: Result - Labs CBC & Chem 7: 03/28/19 07:15 03/28/19 07:15 Labs: Short CBC 03/28/19 Range/Units 07:15 WBC 8.9 (4.3-11.1) K/mcL Hgb 16.0 (12.9-16.9) g/dL Hct 47.9 (37.5-50.1) % Plt Count 195 (140-400) K/mcL Neutrophils # 5.7 (1.6-8.9) K/mcL BMP 03/28/19 07:15 Sodium 139 Potassium 4.2 Chloride 108 H Carbon Dioxide 22 L BUN 14 Creatinine 0.74 Glucose 120 H Calcium 9.0 - ABG Interpretation ABG results: PT/INR, D-dimer PT 11.6 Seconds (9.4-12.1) 03/27/19 02:27 - Impressions Impressions Transesophageal w/Cardioversion 03/27/19 10:38 Impressions: No LA or ALPHONSE thrombus. Successful synchronized direct current cardioversion of atrial flutter. LVEF 50 %, Normal LV size and systolic function. Normal right ventricle size and function. Mild tricuspid regurgitation. No pulmonary hypertension. PFO with Bidirectional shunt. Left Ventricular Wall Motion: Transesophageal Echo Findings All wall segments showed normal motion. Medication Given: Time Medication Dose Units Route 13:35 Versed 2 mg IV 13:35 Fentanyl 50 mcg IV 13:50 Versed 1 mg IV Contrast Type Amount Agitated saline 10 Findings: Study Quality * Technically adequate exam. ECG Findings * Fib flutter without ectopy Left Ventricle * LVEF 50 % * Normal LV size and systolic function. * There is no LV thrombus. * Right Ventricle * Normal right ventricle size and function. Left Atrium * Within normal limits. * No thrombus present. * LA appendage is normal in appearance. Right Atrium * Within normal limits. Interatrial Septum * PFO with Bidirectional shunt on color Doppler and saline contrast study. Aortic Valve * Normal structure and function. Mitral Valve * Normal structure and function * Trace/trivial mitral regurgitation. Tricuspid Valve * Normal structure. * Mild tricuspid regurgitation. * No pulmonary hypertension. Pulmonic Valve * Normal structure and function. * No pulmonic regurgitation. Aorta * The aortic root is not dilated. Pericardium * No pericardial effusion. Pulmonary Artery * Normal pulmonary artery. Pulmonary Veins * Normal pulmonary veins. Procedure Summary: After explaining the risks, benefits, and alternatives of the procedure to the patient in detail and answering all questions to satisfaction, an informed consent was obtained in writing. The patient was NPO for the six hours prior to the procedure. The patient denied dysphagia, odynophagia, and loose teeth. The patient was monitored with periodic automated blood pressures and continuous pulse oximetry and telemetry. Continuous oxygen was administered by PA. The patient was placed in the full upright position and the posterior oropharynx was anesthetized as above and complete suppression of the gag reflex was obtained. The patient was then placed in the left lateral decubitus position, the neck was flexed, and a bite block was placed in the patient's mouth. IV sedation was administered. Once adequate sedation was achieved, a well-lubricated anteflexed multipoint intraesophageal echocardiographic probe was inserted into the midline posterior oropharynx. Gentle pressure was applied as the patient swallowed and the esophagus was intubated without difficulty. The scope was advanced to the mid esophagus without encountering resistance. Images were obtained from the mid and upper esophagus. Images from the gastric globe were obtained. The intra-atrial septum was assessed by color-flow Doppler and agitated saline. The scope was then rotated approximately 180 degrees and withdrawn, visualizing the length of the aorta. The scope was then slowly withdrawn as the patient was continually suctioned. The patient tolerated the procedure well. Following informed consent , the patient was sedated with versed and fentanyl. After adequate sedation was achieved, cardioversion in the AP approach was successful using 50 Joules of biphasic energy. Normal sinus rhythm was restored after 1 attempt(s). The patient was monitored for the standard 30 minutes post procedure. Complications: None History: History of Smoking Years 50 Packs 1 Previous Echo 03/02/2019 BP 108 / 93 Updated by Jeni Do MD on 03/27/2019 2:23:53 PM electronically signed on 03/27/2019 2:25:32 PM with status of Final Wall Motion [place]: 1=Normal, 2=Hypokinesis, 3=Akinesis, 4=Dyskinesis, 5=Aneurysmal, 6=Hyperkinetic, X=Not Visualized (Blank)=Missing Wall MotionIndex LEONILA Total of all scored black 17 Index Divided by ---- = 1 Total number of black scored 17 Consult Discharge Plan - Plan Referrals: NONE,PCP [Primary Care Provider] - (2) Leukocytosis Qualifiers: Leukocytosis type: unspecified Qualified Code(s): D72.829 - Elevated white blood cell count, unspecified
[2019-03-28] MEDS: Nicotine 21 MG PATCH.TD24 TD SCH (11:30)
--- NOTE | 2019-03-29 00:19 | Electrocardiograph Report ---
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
--- NOTE | 2019-03-29 00:21 | Electrocardiograph Report ---
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
[2019-03-29] MEDS: Apixaban 5 MG TABLET PO SCH ×2 (07:25→20:36)
[2019-03-29] MEDS: Nicotine 21 MG PATCH.TD24 TD SCH (07:25)
[2019-03-29] MEDS ORDERED: Nicotine 21 MG PATCH.TD24 TD SCH (10:13)
--- NOTE | 2019-03-29 10:42 | Cardiology Progress Note ---
Date of Encounter: 03/29/19 Time of Encounter: 09:30 Assessment and Plan (1) Atrial flutter Current Visit: Yes Status: Acute Per Cardiology: -Patient with known a.fib/flutter history. Patient is s/p LEONILA guided DCCV yesterday. -Patient was seen by EP and was recommended for increased flecanide to 150mg BID, currently s/p 4 total doses of increased flecanide. -ECG baseline with a.flutter, HR 82. QT 382/QTc 420ms. -ECG 03/28/19 with SR, HR 63. QT 422/ QTc 430ms. -ECG 03/29/19 with SB, HR 52. QT 448/QTc 428ms. -Not on BB due to bradycardia. Patient denies dizziness, lightheadness. -Patient will need AC for at least one month, started on eliquis. Assistance card given. -Continue flecanide. Patient will need to be inpatient for 5 total doses of increased flecanide. 5th dose scheduled for 2100 tonight, will review telemetry and ECG in am. If no a.fib overnight and QTc stable, anticipate cardiology sign off in am. -Continue telemetry. ECGs daily. -Will continue to monitor. Qualifiers: Atrial flutter type: unspecified Qualified Code(s): I48.92 - Unspecified atrial flutter Discussion w patient/family: The assessment and plan as outlined above was discussed with the patient and family who expressed understanding and agreement. All questions were answered. Thank you for involving us in the care of your patient. Please call with any questions. Discussed and reviewed with . Subjective Principal diagnosis: a.fib Interval history: Patient is s/p LEONILA guided DCCV Saturday. Denies complaints today. Patient anxious for discharge. Objective Vital Signs, Last 4 Hours Temp Pulse Resp BP Pulse Ox 03/29/19 06:54 97.8 F 53 18 115/70 98 General: Conversant, No Apparent Distress HEENT: Atraumatic, Normocephaly, Mucus Membranes Moist Neck: No JVD, Normal carotid pulses Cardiac: Reg Rate and Rhythm, Normal S1 and S2, No Murmur Lungs: Normal Breath Sounds, No Wheeze, Rales, Rhonchi Neuro: Alert and responsive, No focal deficits noted Abdomen: Soft, Non-Tender Skin: No rashes noted on visualized skin Musculoskeletal: No Chest Wall Tenderness Extremities: No Clubbing, No Cyanosis, No Edema, Normal Pulses Results 03/28/19 07:15 03/28/19 07:15 Active Medications Apixaban (Eliquis) 5 mg PO BID [facility]; Protocol Stop: 09/26/19 15:15 Last Admin: 03/29/19 07:25 Dose: 5 mg Documented by: Flecainide Acetate (Flecainide) 150 mg PO Q12HR [facility] Stop: 09/26/19 18:01 Last Admin: 03/29/19 05:56 Dose: 150 mg Documented by: Naloxone HCl (Narcan) 0.4 mg IVP Q2MPRN PRN PRN Reason: SEE COMMENTS Stop: 09/25/19 20:18 Nicotine (Nicoderm) 21 mg TD DAILY [facility]; Protocol Stop: 09/27/19 10:45 Last Admin: 03/29/19 07:25 Dose: 21 mg Documented by: - Imaging and Cardiology Chest Xray: report reviewed Echo: report reviewed - EKG Interpretation EKG results cardiology: other (Telemetry reviewed with average HR previous 12 hours noted to be 55, SB. PVCs, PACs noted.) Consult Discharge Plan - Plan Referrals: NONE,PCP [Primary Care Provider] -
--- NOTE | 2019-03-29 10:49 | Internal Med Progress Note ---
Hospitalist Progress Note - Encounter Date of Encounter: 03/29/19 Time of Encounter: 10:54 - Exam Vitals: Temp Pulse Resp BP Pulse Ox 97.8 F 53 18 115/70 98 03/29/19 06:54 03/29/19 06:54 03/29/19 06:54 03/29/19 06:54 03/29/19 06:54 Exam: General: A & O 3, In no acute distress HENNT: PERRLA. Head atraumatic and makes supple CVS S1 and S2 regular, no murmur RS: Clear to air entry bilaterally, no wheeze, no crackles Abdomen: Soft and nontender. Bowel sounds normal 4 Extremities: No cyanosis, clubbing, and edema Neurology: Cranial II-XIII normal. Motor strength 5/5 bilaterally. Sensation intact - Assessment and Plan (1) Atrial flutter Current Visit: Yes Status: Acute Assessment and Plan: He has a history of atrial fibrillation/flutter. Patient came to the hospital complaining of palpitation and chest pain. On initial presentation patient found to have A. fib/flutter wit RVR. Patient is s/p LEONILA guided DCCV on 03/28/2019. Patient was seen by EP and was recommended for increased flecanide to 150mg BID, currently s/p 4 total doses of increased flecanide. Patient need five dose of flecainide in hospital. Dose #5 of flecainide is tonight. Patient will likely be discharged tomorrow once cardiology clears him for discharge tomorrow morning given that patient does not have any atrial fibrillation/flutter overnight on telemetry and QTC is stable. Discharge on 1 month of anticoagulation per cardiology and flecainide 150 twice a day. (2) Leukocytosis Current Visit: No Status: Resolved Assessment and Plan: Leukocytosis has resolved. WBC yeaterday was 8.9. (3) DVT prophylaxis Current Visit: No Status: Acute Assessment and Plan: Eliquis 5 mg BID. Heparin drip stopped - Time Spent with Patient Total time spent is greater than 50% in coordination of care (as documented) at patient's floor/unit and/or counseling patient: 25 - 35 minutes Plan of Care Discussed with: patient Internal Medicine: Result - Labs CBC & Chem 7: 03/28/19 07:15 03/28/19 07:15 - ABG Interpretation ABG results: PT/INR, D-dimer PT 11.6 Seconds (9.4-12.1) 03/27/19 02:27 Consult Discharge Plan - Plan Referrals: NONE,PCP [Primary Care Provider] - (1) Atrial flutter Qualifiers: Atrial flutter type: unspecified Qualified Code(s): I48.92 - Unspecified atr ial flutter (2) Leukocytosis Qualifiers: Leukocytosis type: unspecified Qualified Code(s): D72.829 - Elevated white blood cell count, unspecified
[2019-03-29] MEDS ORDERED: Simethicone 80 MG TAB.CHEW PO PRN (20:55)
[2019-03-30 07:05] VITALS: BP 121/76
[2019-03-30] MEDS: Apixaban 5 MG TABLET PO SCH (08:39)
[2019-03-30] MEDS: Nicotine 21 MG PATCH.TD24 TD SCH (08:39)
--- NOTE | 2019-03-30 09:09 | Discharge Summary ---
- NOTES TO OUTPATIENT PROVIDER Notes to Outpatient Provider: Pt was hospitalize for atrial fibrillation/flutter. Cardiology and electrophysiology was consulted. Patient got LEONILA and cardioversion. Patient was placed on flecainide 150 twice a day by pie bottomer. Patient was placed on anticoagulation was followed on twice a day. Patient needs to be on" for one month. Patient is to follow-up with cardiology in 2 weeks. Patient will be discharged on flecainide 150 twice a day and Eliquis 5 mg BID Date of Encounter: 03/30/19 Time of Encounter: 09:05 - Discharge Diagnosis (1) Atrial flutter Priority: Primary Status: Acute Qualifiers: Atrial flutter type: unspecified Qualified Code(s): I48.92 - Unspecified atrial flutter (2) Leukocytosis Priority: Secondary Status: Resolved Qualifiers: Leukocytosis type: unspecified Qualified Code(s): D72.829 - Elevated white blood cell count, unspecified (3) DVT prophylaxis Priority: Secondary Status: Acute Hospital course: Mr. Mota is a 63 year old male past medical history of hypertension and atrial fibrillation was hospitalized for atrial fibrillation/flutter. Cardiology and electrophysiology was consulted. Patient got LEONILA and cardioversion. Patient was placed on flecainide 150 twice a day by pie bottomer. Patient was placed on anticoagulation was followed on twice a day. Patient needs to be on" for one month. Patient is to follow-up with cardiology in 2 weeks. Patient will be discharged on flecainide 150 twice a day and Eliquis 5 mg BID Discharge discussed with: patient, family, nurse, practice management consultant - Time Spent with Patient Total time spent providing and/or coordinating discharge services: 35 Time spent: Greater than 30 minutes - Discharge Medications Prescriptions: New Apixaban [Eliquis] 5 mg PO BID 30 Days #60 tablet Flecainide 150 mg PO Q12HR 30 Days #60 tablet Continued Aspirin [Adult Aspirin] 81 mg PO DAILY [place]-3/Dha/Epa/Fish Oil [Fish Oil 1,000 mg Softgel] 1 cap PO DAILY Discontinued Flecainide 100 mg PO BID Metoprolol XL (24 HR) Succ [Toprol Xl] 25 mg PO DAILY #30 tab.er.24h Home Medications: Aspirin [Adult Aspirin] 81 mg PO DAILY 03/01/19 [History] [place]-3/Dha/Epa/Fish Oil [Fish Oil 1,000 mg Softgel] 1 cap PO DAILY 03/01/19 [History] Apixaban [Eliquis] 5 mg PO BID 30 Days #60 tablet 03/30/19 [Rx] Flecainide 150 mg PO Q12HR 30 Days #60 tablet 03/30/19 [Rx] Allergies/Adverse Reactions: Allergy/AdvReac Type Severity Reaction Status Date / Time No Known Allergies Allergy Verified 03/01/19 17:02 Date of admission: 03/28/19 12:08 Primary care physician: PCP NONE Consults: 03/27/19 04:09 Consult to Cardiology [CONS] Routine Comment: Consulting Provider: Cardiology Fabiola Reason for Consult: Atrial fibrillation with RVR Call Completed: No 03/27/19 10:41 Consult to Electrophysiology (EP) [CONS] Routine Consulting Provider: Electrophysiology Fabiola Reason for Consult: antiarrythmic evaluation Call Completed: Yes Discharging clinician: Jaylen Arthur - Constitutional Vitals: Temp Pulse Resp BP Pulse Ox 97.8 F 64 16 121/76 95 03/30/19 07:02 03/30/19 07:02 03/30/19 07:02 03/30/19 07:02 03/30/19 07:02 General appearance: Present: cooperative, A&O X 3 Exam: General: A & O 3, In no acute distress HENNT: PERRLA. Head atraumatic and makes supple CVS S1 and S2 regular, no murmur RS: Clear to air entry bilaterally, no wheeze, no crackles Abdomen: Soft and nontender. Bowel sounds normal 4 Extremities: No cyanosis, clubbing, and edema Neurology: Cranial II-XIII normal. Motor strength 5/5 bilaterally. Sensation intact - Patient Status Disposition: Home, Self-Care Condition: Good Overall status at discharge: patient is progressing back to baseline - Discharge Instructions Follow Up With: NONE,PCP [Primary Care Provider] - - Diet and Activity Activity: increase activity as tolerated Diet: low salt diet
--- NOTE | 2019-03-30 09:19 | Cardiology Progress Note ---
Date of Encounter: 03/30/19 Time of Encounter: 09:15 Assessment and Plan (1) Atrial flutter Current Visit: Yes Status: Acute Per Cardiology: -Patient with known a.fib/flutter history. Patient is s/p LEONILA guided DCCV Saturday. -Patient was seen by EP and was recommended for increased flecanide to 150mg BID, currently s/p 5 total doses of increased flecanide. -ECG baseline with a.flutter, HR 82. QT 382/QTc 420ms. -ECG 03/28/19 with SR, HR 63. QT 422/ QTc 430ms. -ECG 03/29/19 with SB, HR 52. QT 448/QTc 428ms. -ECG 03/30/19 with SB, 58. QT 410/QTc 406ms. -OF note, patient did have episode of a.fib overnight, now back in SR. -Not on BB due to bradycardia. Patient denies dizziness, lightheadness. -Patient will need AC for at least one month, started on eliquis. Assistance card given. -Discussed and reviewed episode of a.fib with , ok for discharge, since patient is now back in SR. QT/QTc stable. -Cardiology/EP will sign off. Will arrange close outpatient follow up with EP. Qualifiers: Atrial flutter type: unspecified Qualified Code(s): I48.92 - Unspecified atrial flutter Discussion w patient/family: The assessment and plan as outlined above was discussed with the patient and family who expressed understanding and agreement. All questions were answered. Thank you for involving us in the care of your patient. Please call with any questions. Discussed and reviewed with . Subjective Principal diagnosis: a.fib Interval history: Patient is s/p LEONILA guided DCCV Saturday. Patient had episode of a.fib overnight. Objective Vital Signs, Last 4 Hours Temp Pulse Resp BP Pulse Ox 03/30/19 07:02 97.8 F 64 16 121/76 95 General: Conversant, No Apparent Distress HEENT: Atraumatic, Normocephaly, Mucus Membranes Moist Neck: No JVD, Normal carotid pulses Cardiac: Reg Rate and Rhythm, Normal S1 and S2, No Murmur Lungs: Normal Breath Sounds, No Wheeze, Rales, Rhonchi Neuro: Alert and responsive, No focal deficits noted Abdomen: Soft, Non-Tender Skin: No rashes noted on visualized skin Musculoskeletal: No Chest Wall Tenderness Extremities: No Clubbing, No Cyanosis, No Edema, Normal Pulses Results 03/28/19 07:15 03/28/19 07:15 - Imaging and Cardiology Chest Xray: report reviewed Echo: report reviewed - EKG Interpretation EKG results cardiology: other (Telemetry reviewed with average HR previous 12 hours noted to be 73, SR. PAF noted. PVCs noted.) Consult Discharge Plan - Plan Referrals: Urvashi Nguyễn, RELIABILITY TECHNICIAN [Advanced Practice Nurse] - NONE,PCP [Primary Care Provider] - Prescriptions: Apixaban [Eliquis] 5 mg PO BID 30 Days #60 tablet Flecainide 150 mg PO Q12HR 30 Days #60 tablet
--- NOTE | 2019-03-31 09:30 | Electrocardiograph Report ---
[address] [address] Test Date: 2019-03-27 Pat Name: Nguyễn Mota Department: 101 Room: 2A14 Gender: M Lens Marker: AF : 1955 Requested By: Gerber Velásquez Order Number: [id number] Reading MD: Jeni Do Measurements Intervals [place] Rate: 48 P: 65 [place]: 160 QRS: 70 QRSD: 92 T: 53 QT: 424 QTc: 392 Interpretive Statements SINUS BRADYCARDIA LOW QRS VOLTAGE IN EXTREMITY LEADS Electronically Signed On 03-31-2019 9:29:05 EDT by Jeni Do
--- NOTE | 2019-03-31 09:31 | Electrocardiograph Report ---
[address] [address] Test Date: 2019-03-28 Pat Name: Nguyễn Mota Department: 112 Room: 2A14 Gender: M Heel Cover Softener: : 1955 Requested By: Gonzalez Sanchez Order Number: [id number] Reading MD: Jeni Do Measurements Intervals [place] Rate: 63 P: 68 [place]: 164 QRS: 52 QRSD: 99 T: 44 QT: 422 QTc: 430 Interpretive Statements SINUS RHYTHM WITH MARKED SINUS ARRHYTHMIA LOW QRS VOLTAGE IN EXTREMITY LEADS Electronically Signed On 03-31-2019 9:30:03 EDT by Jeni Do
--- NOTE | 2019-03-31 09:39 | Electrocardiograph Report ---
[address] [address] Test Date: 2019-03-29 Pat Name: Nguyễn Mota Department: 112 Room: 2A14 Gender: M Assistant Operations Manager: CAT : 1955 Requested By: Gonzalez Sanchez Order Number: [id number] Reading MD: Jeni Do Measurements Intervals [place] Rate: 52 P: 48 [place]: 165 QRS: 38 QRSD: 102 T: 31 QT: 448 QTc: 428 Interpretive Statements SINUS BRADYCARDIA Electronically Signed On 03-31-2019 9:37:21 EDT by Jeni Do
--- NOTE | 2019-03-31 10:25 | Electrocardiograph Report ---
[address] [address] Test Date: 2019-03-30 Pat Name: Nguyễn Mota Department: 112 Room: 2A14 Gender: M Part Maker: : 1955 Requested By: Zeferino Mazariegos Order Number: [id number] Reading MD: Jeni Do Measurements Intervals [place] Rate: 136 P: ID: 0 QRS: 75 QRSD: 100 T: 58 QT: 324 QTc: 404 Interpretive Statements ATRIAL FIBRILLATION WITH RAPID VENTRICULAR RESPONSE MODERATE ST DEPRESSION Electronically Signed On 03-31-2019 10:23:59 EDT by Jeni Do
--- NOTE | 2019-03-31 10:32 | Electrocardiograph Report ---
[address] [address] Test Date: 2019-03-30 Pat Name: Nguyễn Mota Department: 112 Room: 2A14 Gender: M Small Engine Technician: : 1955 Requested By: Gonzalez Sanchez Order Number: [id number] Reading MD: Jeni Do Measurements Intervals [place] Rate: 58 P: 56 [place]: 161 QRS: 16 QRSD: 101 T: 44 QT: 410 QTc: 406 Interpretive Statements SINUS BRADYCARDIA Electronically Signed On 03-31-2019 10:30:33 EDT by Jeni Do
== END 2019-03-30 09:35 | disposition home or self-care (01) | DRG 310 ==
LOC: 2ANU 18:28 → EMEROOARM 18:28 → SUATTDRO 20:24 → 2ANU 21:02
PROVIDERS: ADMIT Family Medicine; ATTEND Family Medicine

== ENCOUNTER 2019-04-06 07:06 | Inpatient (IN) ==
[2019-04-06] MEDS ORDERED: Amiodarone Premix 150 MG/100 ML BAG IVPB ONE ×2 (07:16→07:25)
[2019-04-06] MEDS ORDERED: Aspirin 325 MG TABLET PO ONE (07:25)
[2019-04-06] MEDS ORDERED: Amiodarone Premix 360 MG/200 ML BAG IVC ONE (07:25)
[2019-04-06] MEDS ORDERED: 0.9 % Sodium Chloride 1,000 ML IVC ONE (07:25)
--- NOTE | 2019-04-06 07:29 | Emergency Department Note ---
Disposition Clinical Impression: Ventricular tachycardia Atrial fibrillation Qualifiers: Atrial fibrillation type: unspecified Qualified Code(s): I48.91 - Unspecified a trial fibrillation Disposition: Admitted As Inpatient Condition: Fair Referrals: Urvashi Nguyễn CNP [Primary Care Provider] - Forms: ED Satisfaction Letter Time of Disposition: 08:45 Arrhythmia/Palpitations HPI - General Chief Complaint: ED Arrhythmia/Palpitations Stated Complaint: in/out of afib for 1 wk/nausea/lightheaded/shaking Time Seen by Provider: 04/06/19 07:08 Source: patient, family Mode of arrival: private vehicle Limitations: no limitations Nursing Notes Reviewed: Yes Vital Signs Reviewed: Yes - History of Present Illness HPI Narrative: 63M with Pmhx of atrial fibrillation on flecainide and eliquis that reports weakness, overall numbness and feeling his heart is racing off and on since being discharged last Saturday for afib/cardioversion. Pt states that he went out of rhythm on Saturday of last week, then went back in on Saturday, then back out again last night, started to feel poorly this morning and decided to get checked out. He reports being faithful with his medication and did not miss any doses. He reports cutting "way back" on smoking and is down to 5 cigarettes per day. Pt reports sore throat, nausea this morning but not now, and some numbness all over his body when he feels that his heart is out. He also reports some shortness of breath. He denies chest pain, pressure, or tightness. - Related Data Previous Rx's Medication Instructions Recorded Apixaban [Eliquis] 5 mg PO BID 30 Days #60 tablet 03/30/19 Flecainide 150 mg PO Q12HR 30 Days #60 tablet 03/30/19 Allergies Allergy/AdvReac Type Severity Reaction Status Date / Time No Known Allergies Allergy Verified 04/06/19 07:12 Review of Systems: In addition to that documented in the HPI above, the additional ROS was obtained: Constitutional: Denies fevers or chills Eyes: Denies vision changes ENMT: Reports sore throat CV: Denies chest pain Resp: Reports SOB GI: Denies vomiting or diarrhea Reports intermittent nausea : Denies painful urination MSK: Denies recent trauma Skin: Denies new rashes Neuro: Reports overall numbness Past Medical History - Past Medical History Attestation: Yes The following information was validated with the patient. Medical history: Reports: atrial fibrillation Surgical history: Reports: no surgical history Psychiatric history: Reports: no psych history - Social History Smoking Status: Current every day smoker Smokeless Tobacco Status: No Alcohol use: Reports: occasionally Drug use: Reports: none Physical Exam Preliminary physical exam was performed at 0730 when patient first arrived, he had a pulse present and was mentating well. Interventions were performed and once patient's heart rate had slowed to low 100's, a formal physical was performed and is documented below: General: A&O x 3. No acute distress. Well developed, well nourished. Head: atraumatic, normocephalic. ENT: No conjunctival injection, no scleral icterus. PERRLA. EOMI. Oropharynx non- erythematous. mucous membranes moist. Neuro: No focal deficits, no speech deficit, no facial droop, mentating well. BUE/BLE Str 5/5. Pulm: Lungs CTAB A/P. No wheezes, rales, ronchi. Cardio: Irregularly irregular. Chest not tender to palpation. Abd: Soft, non-distended. Normoactive bowel sounds. Non-tender to palpation. No guarding. Non rigid. Extremities: Radial pulses 2+ lance, dorsalis pedis/posterior tibialis 2+ lance. No LE edema. No cyanosis, clubbing. Skin: warm, dry, intact. No rashes. Psych: Appropriate mood and affect. Answers questions appropriately. Cooperative with exam. - General Limitations: no limitations General appearance: alert Course - Consultations Consultation #1: Spoke with Dr. Velásquez who states that we should hold eliquis and flecainide, keep amnio going, make sure potassium is at least 4.0 and magnesium is at least 2.0. Time: 07:40 Vital Signs Temperature 98.0 F 04/06/19 07:16 Pulse Rate 228 04/06/19 07:16 Respiratory Rate 18 04/06/19 07:16 Blood Pressure 119/104 04/06/19 07:16 O2 Sat by Pulse Oximetry 99 04/06/19 07:16 Temperature 98.0 F 04/06/19 07:16 Pulse Rate 107 04/06/19 08:48 Respiratory Rate 20 04/06/19 08:48 Blood Pressure 103/73 04/06/19 08:48 O2 Sat by Pulse Oximetry 100 04/06/19 08:48 Oxygen Delivery Oxygen Delivery Nasal Cannula Arrhythmia/Palpitations - [facility] Narrative Medical decision making narrative: 0741: 63M presents with feeling that his heart is in afib and has been feeling weak and all over numbness with intermittent nausea over the last several days. Patient initially presents in ventricular tachycardia, crash cart was brought to bedside, pads were put in place, IV access was obtained and pt was given 150mg of amnioiodarone over ten minutes. He was then started on a drip of 1mg/min. Cardiology was consulted and they recommended continuing amnio, holding his doses of flecainide and eliquis for now. Will continue to monitor, and admit to hospitalist with cardiology consult. 0800: Pt reports feeling better, heart rate is in low 100's with sinus arrhythmia and narrow complex QRS. 0845: Patient was admitted to the hospitalist Dr. Donaldson who agreed to accept the patient to his service. Results of the workup including any imaging and/or labwork was shared with the patient at bedside. Patient was given an opportunity to ask questions at bedside and all of their concerns were addressed. Patient verbalized understanding and agreement with plan of care. Pt remained stable while in the department. - Medical Records Medical records reviewed: Yes I reviewed the patient's medical records. - Lab Data Lab results reviewed: Yes I reviewed the patient's lab results. Result diagrams: 04/06/19 07:30 04/06/19 07:30 Lab Results 04/06/19 04/06/19 04/06/19 Range/Units 07:30 07:30 07:30 WBC 13.0 H (4.3-11.1) K/mcL RBC 6.23 H (4.19-5.50) M/mcL Hgb 19.3 H (12.9-16.9) g/dL Hct 56.3 H (37.5-50.1) % MCV 90.4 (83.0-100.0) fL MCH 31.0 (28.0-33.3) pg MCHC 34.3 (31.6-35.5) g/dL RDW 12.6 (11.5-14.5) % Plt Count 247 (140-400) K/mcL MPV 10.2 (9.4-12.4) fL Immature Gran % 0.7 (0-4) % Seg Neutrophils % 64.1 % Lymphocytes % 22.3 % Monocytes % 11.1 % Eosinophils % 1.0 % Basophils % 0.8 % Neutrophils # 8.4 (1.6-8.9) K/mcL Lymphocytes # 2.9 (0.6-4.6) K/mcL Monocytes # 1.4 H (0.0-1.3) K/mcL Eosinophils # 0.1 (0.0-0.6) K/mcL Basophils # 0.1 (0.0-0.2) K/mcL PT (9.4-12.1) Seconds INR APTT (26.0-36.0) Seconds Sodium 136 (136-145) mEq/L Potassium 4.2 (3.5-5.1) mEq/L Chloride 105 (98-107) mEq/L Carbon Dioxide 22 L (23-29) mEq/L BUN 16 (8-23) mg/dL Creatinine 0.99 (0.70-1.30) mg/dL Est GFR ( Amer) > 60 (> 60) Est GFR (Non-Af Amer) > 60 (> 60) BUN/Creatinine Ratio 16 (6-26) Glucose 156 H (70-105) mg/dL Calculated Osmolality 286 (280-300) Calcium 9.6 (8.6-10.3) mg/dL Magnesium 2.1 (1.6-2.6) mg/dL Troponin I < 0.03 (< 0.04) ng/mL B-Natriuretic Peptide 49 (Less than 100) pg/mL TSH 2.642 (0.340-5.600) mcIU/mL Specimen Rejected 04/06/19 04/06/19 Range/Units 07:30 08:03 WBC (4.3-11.1) K/mcL RBC (4.19-5.50) M/mcL Hgb (12.9-16.9) g/dL Hct (37.5-50.1) % MCV (83.0-100.0) fL MCH (28.0-33.3) pg MCHC (31.6-35.5) g/dL RDW (11.5-14.5) % Plt Count (140-400) K/mcL MPV (9.4-12.4) fL Immature Gran % (0-4) % Seg Neutrophils % % Lymphocytes % % Monocytes % % Eosinophils % % Basophils % % Neutrophils # (1.6-8.9) K/mcL Lymphocytes # (0.6-4.6) K/mcL Monocytes # (0.0-1.3) K/mcL Eosinophils # (0.0-0.6) K/mcL Basophils # (0.0-0.2) K/mcL PT 14.0 H (9.4-12.1) Seconds INR 1.2 APTT 40.0 H (26.0-36.0) Seconds Sodium (136-145) mEq/L Potassium (3.5-5.1) mEq/L Chloride (98-107) mEq/L Carbon Dioxide (23-29) mEq/L BUN (8-23) mg/dL Creatinine (0.70-1.30) mg/dL Est GFR ( Amer) (> 60) Est GFR (Non-Af Amer) (> 60) BUN/Creatinine Ratio (6-26) Glucose (70-105) mg/dL Calculated Osmolality (280-300) Calcium (8.6-10.3) mg/dL Magnesium (1.6-2.6) mg/dL Troponin I (< 0.04) ng/mL B-Natriuretic Peptide (Less than 100) pg/mL TSH (0.340-5.600) mcIU/mL Specimen Rejected Miscellaneous - Radiology Data Radiology results reviewed: Yes I reviewed the patient's radiology results. Chest X-Ray 04/06/19 07:25 IMPRESSION: 1. No active pulmonary disease. D/ / Juan J Sebastian MD / Juan J Sebastian MD Interpreting Provider: Juan J Sebastian MD - EKG Data EKG attestation: Yes I reviewed and interpreted this EKG. EKG results narrative: 0715: Heart rate 228, rhythm wide-complex tachycardia, rhythm appears to be ventricular tachycardia. QRS is prolonged. 0731: Heart rate 117, rhythm is read as atrial flutter by machine, however the underlying rhythm does not appear to be atrial flutter but sinus with sinus arrhythmia. QRS is 124 and prolonged, QTC is 470 and borderline prolonged. There is some ST elevation in aVR and ST depression in aVF, II, III. Pt has no chest pain during this exam. Previous EKG dated 03/30/19 shows sinus bradycardia qith rate of 58 with QRS of 101.
--- NOTE | 2019-04-06 07:40 | Emergency Department Note ---
Disposition Clinical Impression: Ventricular tachycardia Atrial fibrillation Qualifiers: Atrial fibrillation type: unspecified Qualified Code(s): I48.91 - Unspecified a trial fibrillation Disposition: Admitted As Inpatient Condition: Fair Time of Disposition: 09:52 General Adult HPI - General Chief complaint: ED Arrhythmia/Palpitations Stated complaint: in/out of afib for 1 wk/nausea/lightheaded/shaking Time Seen by Provider: 04/06/19 07:08 Source: patient, family Mode of arrival: private vehicle Limitations: no limitations Nursing Notes Reviewed: Yes Vital Signs Reviewed: Yes - History of Present Illness Pain Scale: 2 - Related Data Previous Rx's Medication Instructions Recorded Apixaban [Eliquis] 5 mg PO BID 30 Days #60 tablet 03/30/19 Flecainide 150 mg PO Q12HR 30 Days #60 tablet 03/30/19 Allergies Allergy/AdvReac Type Severity Reaction Status Date / Time No Known Allergies Allergy Verified 04/06/19 07:12 Past Medical History - Past Medical History Medical history: Reports: atrial fibrillation Surgical history: Reports: no surgical history Psychiatric history: Reports: no psych history - Social History Smoking Status: Current every day smoker Smokeless Tobacco Status: No Alcohol use: Reports: occasionally Drug use: Reports: none Physical Exam - General Limitations: no limitations General appearance: alert Course Vital Signs Temperature 98.0 F 04/06/19 07:16 Pulse Rate 228 04/06/19 07:16 Respiratory Rate 18 04/06/19 07:16 Blood Pressure 119/104 04/06/19 07:16 O2 Sat by Pulse Oximetry 99 04/06/19 07:16 Temperature 98.0 F 04/06/19 07:16 Pulse Rate 107 04/06/19 08:48 Respiratory Rate 20 04/06/19 08:48 Blood Pressure 103/73 04/06/19 08:48 O2 Sat by Pulse Oximetry 100 04/06/19 08:48 Oxygen Delivery Oxygen Delivery Nasal Cannula Medical Decision Making - [facility] Narrative Medical decision making narrative: 0741 hours: After getting 150 mg amiodarone and started on drip 1 mg/m. He is now slowed down to about 110. It looks like atrial fibrillation at this time. He is feeling better. His chest x-ray is done and looks like he might be getting a little bit of pulmonary edema. Waiting on official read by radiology. Getting labs. Spoke with cardiology, Dr. Velásquez he said they will hold his other meds continue the amiodarone we will finish the workup and admit. Chest X-Ray 04/06/19 07:25 IMPRESSION: 1. No active pulmonary disease. D/ / Juan J Sebastian MD / Juan J Sebastian MD Interpreting Provider: Juan J Sebastian MD 0855 hrs.: Patient's been accepted to the hospitalist. He is feeling better he still in atrial fibrillation. Account Services Specialist consult also. - Lab Data Result diagrams: 04/06/19 07:30 04/06/19 07:30 Lab Results 04/06/19 04/06/19 04/06/19 Range/Units 07:30 07:30 07:30 WBC 13.0 H (4.3-11.1) K/mcL RBC 6.23 H (4.19-5.50) M/mcL Hgb 19.3 H (12.9-16.9) g/dL Hct 56.3 H (37.5-50.1) % MCV 90.4 (83.0-100.0) fL MCH 31.0 (28.0-33.3) pg MCHC 34.3 (31.6-35.5) g/dL RDW 12.6 (11.5-14.5) % Plt Count 247 (140-400) K/mcL MPV 10.2 (9.4-12.4) fL Immature Gran % 0.7 (0-4) % Seg Neutrophils % 64.1 % Lymphocytes % 22.3 % Monocytes % 11.1 % Eosinophils % 1.0 % Basophils % 0.8 % Neutrophils # 8.4 (1.6-8.9) K/mcL Lymphocytes # 2.9 (0.6-4.6) K/mcL Monocytes # 1.4 H (0.0-1.3) K/mcL Eosinophils # 0.1 (0.0-0.6) K/mcL Basophils # 0.1 (0.0-0.2) K/mcL PT (9.4-12.1) Seconds INR APTT (26.0-36.0) Seconds Sodium 136 (136-145) mEq/L Potassium 4.2 (3.5-5.1) mEq/L Chloride 105 (98-107) mEq/L Carbon Dioxide 22 L (23-29) mEq/L BUN 16 (8-23) mg/dL Creatinine 0.99 (0.70-1.30) mg/dL Est GFR ( Amer) > 60 (> 60) Est GFR (Non-Af Amer) > 60 (> 60) BUN/Creatinine Ratio 16 (6-26) Glucose 156 H (70-105) mg/dL Calculated Osmolality 286 (280-300) Calcium 9.6 (8.6-10.3) mg/dL Magnesium 2.1 (1.6-2.6) mg/dL Troponin I < 0.03 (< 0.04) ng/mL B-Natriuretic Peptide 49 (Less than 100) pg/mL TSH 2.642 (0.340-5.600) mcIU/mL Specimen Rejected 04/06/19 04/06/19 Range/Units 07:30 08:03 WBC (4.3-11.1) K/mcL RBC (4.19-5.50) M/mcL Hgb (12.9-16.9) g/dL Hct (37.5-50.1) % MCV (83.0-100.0) fL MCH (28.0-33.3) pg MCHC (31.6-35.5) g/dL RDW (11.5-14.5) % Plt Count (140-400) K/mcL MPV (9.4-12.4) fL Immature Gran % (0-4) % Seg Neutrophils % % Lymphocytes % % Monocytes % % Eosinophils % % Basophils % % Neutrophils # (1.6-8.9) K/mcL Lymphocytes # (0.6-4.6) K/mcL Monocytes # (0.0-1.3) K/mcL Eosinophils # (0.0-0.6) K/mcL Basophils # (0.0-0.2) K/mcL PT 14.0 H (9.4-12.1) Seconds INR 1.2 APTT 40.0 H (26.0-36.0) Seconds Sodium (136-145) mEq/L Potassium (3.5-5.1) mEq/L Chloride (98-107) mEq/L Carbon Dioxide (23-29) mEq/L BUN (8-23) mg/dL Creatinine (0.70-1.30) mg/dL Est GFR ( Amer) (> 60) Est GFR (Non-Af Amer) (> 60) BUN/Creatinine Ratio (6-26) Glucose (70-105) mg/dL Calculated Osmolality (280-300) Calcium (8.6-10.3) mg/dL Magnesium (1.6-2.6) mg/dL Troponin I (< 0.04) ng/mL B-Natriuretic Peptide (Less than 100) pg/mL TSH (0.340-5.600) mcIU/mL Specimen Rejected Miscellaneous Critical Care Time Critical Care Time: Yes Total Critical Care Time: 45 Attestation: Excluding any separately billable procedures. Attestation Statement - Attestation Attestation: This documentation is done with the assistance of Dragon dictation. Despite efforts made to ensure accuracy, there may be inaccuracies in shot polisher or spelling and typographical errors. I examined this patient and my medical decision-making was reviewed with the Resident Physician. I agree with the documented findings, disposition and treatment plan as described except to the extent set forth below. Patient was seen and evaluated by Dr. Parikh, I agree with their evaluation and management plan, I supervised care the patient's stay. Patient presents today with a complaint of irregular heartbeat. He states that he feels like he has been going in and out of this since last Saturday. Has a history of atrial fibrillation. He is on flecainide for that he is also L request. He did have a cardioversion when he was here in the hospital last time. He states that he feels all of her weakness but no chest pain little shortness of breath. Presents today with V. tach heart rate in the 220s. But he is stable. We will do a cardiac workup along with starting him on amiodarone and admission. We will speak with cardiology. I reviewed the residents documentation and agree with the residents assessment and plan of care. I have personally had face to face time with the patient. (Brief History, Brief Exam, and MDM) I personally supervised and was present for the pearson/critical portions of the following procedures completed by the resident: EKG was interpreted by the resident under my supervision, I agree with their interpretation.
[2019-04-06 07:43] LABS: Hemoglobin 19.3 g/dL (12.9-16.9); Immature Granulocytes % 0.7 % (0-4); Lymphocytes % 22.3 %; Mean Corpuscular HGB Conc 34.3 g/dL (31.6-35.5); Mean Corpuscular Volume 90.4 fL (83.0-100.0); Mean Platelet Volume 10.2 fL (9.4-12.4); Monocytes % 11.1 %; Platelet Count 247 K/mcL (140-400); Red Blood Count 6.23 M/mcL (4.19-5.50); Red Cell Distribution Width 12.6 % (11.5-14.5); Segmented Neutrophils % 64.1 %
[2019-04-06 07:44] LABS: Basophils # 0.1 K/mcL (0.0-0.2); Basophils % 0.8 %; Eosinophils # 0.1 K/mcL (0.0-0.6); Lymphocytes # 2.9 K/mcL (0.6-4.6); Monocytes # 1.4 K/mcL (0.0-1.3); Neutrophils # 8.4 K/mcL (1.6-8.9)
[2019-04-06 07:45] LABS: Hematocrit 56.3 % (37.5-50.1)
[2019-04-06 08:02] LABS: BUN/Creatinine Ratio 16 (6-26); Blood Urea Nitrogen 16 mg/dL (8-23); Calcium 9.6 mg/dL (8.6-10.3); Carbon Dioxide 22 mEq/L (23-29); Chloride 105 mEq/L (98-107); Glucose 156 mg/dL (70-105); Magnesium 2.1 mg/dL (1.6-2.6); Osmolality,Calculated 286 (280-300); Potassium 4.2 mEq/L (3.5-5.1); Sodium 136 mEq/L (136-145); Troponin I < 0.03 ng/mL (< 0.04); eGFR For African Americans > 60 (> 60); eGFR For Non-African Americans > 60 (> 60)
[2019-04-06 08:15] LABS: Thyroid Stimulating Hormone 2.642 mcIU/mL (0.340-5.600)
[2019-04-06 08:32] LABS: INR 1.2
--- NOTE | 2019-04-06 09:20 | Electrocardiograph Report ---
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
--- NOTE | 2019-04-06 09:21 | Electrocardiograph Report ---
[address] [place], [place] [address] Test Date: 2019-04-06 Pat Name: Nguyễn Mota Department: EXAM1 Room: 08 Gender: M Personnel Assistant: : 1955 Requested By: Jonah Gomez Order Number: [id number] Reading MD: Gerber Velásquez Measurements Intervals [place] Rate: 228 P: 49 NM: 103 QRS: 219 QRSD: 161 T: 46 QT: 243 QTc: 474 Interpretive Statements WIDE COMPLEX TACHYCARDIA SUSPICOUS FOR VT Electronically Signed On 04-06-2019 9:20:06 EDT by Gerber Velásquez
[2019-04-06] MEDS ORDERED: Naloxone 0.4 MG/ML INJ IVP PRN (09:52)
[2019-04-06] MEDS ORDERED: Nitroglycerin 0.4 MG TAB.SUBL SL PRN (09:54)
--- NOTE | 2019-04-06 09:57 | Internal Med History&Physical ---
Date of Encounter: 04/06/19 Time of Encounter: 10:12 Internal Medicine - H&P: HPI History of present illness: Mr. Mota is a 63 year old male with history of atrial fibrillation on flecanide and Eliquis, tobacco abuse presented to ED for weakness, dizziness, palpitations. Onset was past 5-6 days, with intermittent episodes of weakness and dizziness. He did not have any syncopal episodes. Recently discharged from hospital last week for DCCV after patient was in atrial flutter. Discharged at that time with Eliquis/flecanide. On arrival to ED, patient foundd to have ventricular tachycardia with HR as high as 228 BPM with BP 119/104. He had no complaints of chest pain or SOB. A chest x-ray was unremarkable, TSH wnl, BNP 49, mg 2.1, potassium 4.2. He was started on amiodarone drip and HR improved. Currently in no acute distress. Past Med Surg Social Fam HX - Past Medical History Medical history: atrial fibrillation Psychiatric history: no psych history - Past Surgical History Surgical History: no surgical history - Social History Smoking Status: Current every day smoker Smokeless Tobacco Status: No Alcohol use: occasionally Drug use: none - Family History Mother Hx Family Cancer: Yes (lung, pancreatic) Father Hx Family Cancer: Yes (brain) Internal Medicine - H&P: Meds Apixaban [Eliquis] 5 mg PO BID 30 Days #60 tablet 03/30/19 [Rx] Flecainide 150 mg PO Q12HR 30 Days #60 tablet 03/30/19 [Rx] Allergy/AdvReac Type Severity Reaction Status Date / Time No Known Allergies Allergy Verified 04/06/19 07:12 All Systems PM: A 10-system review of systems was performed and is negative for pertinent findings except as documented above in the HPI. - Constitutional Vitals: Temp Pulse Resp BP Pulse Ox 98.0 F 102 18 109/85 97 04/06/19 07:16 04/06/19 09:53 04/06/19 09:53 04/06/19 09:53 04/06/19 09:53 General appearance: Present: A&O X 3, no acute distress Exam: . - Head Head exam: Present: atraumatic, normocephalic - Eye Eye exam: Present: PERRL, conjuntiva pink, sclera anicteric Pupils: Present: PERRL - Neck Neck exam general surgery: Present: supple, trachea midline. Absent: lymphadenopathy - Respiratory Respiratory exam: Present: CTAB. Absent: accessory muscle use, rales, rhonchi, wheezes - Cardiovascular Cardiovascular exam: Present: irregular rhythm, +S1, +S2. Absent: bradycardia, diastolic murmur, gallop, rubs, systolic murmur, tachycardia - GI/Abdominal GI/Abdominal exam: Present: normal bowel sounds, soft, no peritoneal signs. Absent: distended, tenderness - Extremities Exam Extremities exam: Present: warm, radial pulses palpable and symmetrical. Absent: calf tenderness, cyanotic, pedal edema - Neurological Exam Neurological exam: Present: CN II-XII intact, oriented X3, no focal deficits. Absent: pronater drift, facial droop, speech deficit - Skin Skin exam: Present: dry, intact Internal Med - H&P Results - Labs CBC & Chem 7: 04/06/19 07:30 04/06/19 07:30 Labs: Short CBC 04/06/19 Range/Units 07:30 WBC 13.0 H (4.3-11.1) K/mcL Hgb 19.3 H (12.9-16.9) g/dL Hct 56.3 H (37.5-50.1) % Plt Count 247 (140-400) K/mcL Neutrophils # 8.4 (1.6-8.9) K/mcL BMP 04/06/19 07:30 Sodium 136 Potassium 4.2 Chloride 105 Carbon Dioxide 22 L BUN 16 Creatinine 0.99 Glucose 156 H Calcium 9.6 Cardiac Enzymes 04/06/19 Range/Units 07:30 Troponin I < 0.03 (< 0.04) ng/mL - Impressions ITS Impressions Chest X-Ray 04/06/19 07:25 IMPRESSION: 1. No active pulmonary disease. D/ / Juan J Sebastian MD / Juan J Sebastian MD Interpreting Provider: Juan J Sebastian MD - Assessment and Plan (1) Atrial fibrillation with RVR Current Visit: No Status: Resolved Assessment and plan: Continue amiodarone drip. Cardiology consulted, possible LHC today. Keep NPO for now. (2) Atrial fibrillation Current Visit: Yes Status: Acute Assessment and plan: Plan as above. Hold Eliquis in case patient needs LHC. Qualifiers: Atrial fibrillation type: paroxysmal Qualified Code(s): I48.0 - Paroxysmal atrial fibrillation (3) Ventricular tachycardia Current Visit: Yes Status: Acute Assessment and plan: Resolved after initiation of amiodarone. (4) DVT prophylaxis Current Visit: No Status: Acute Assessment and plan: SCD - Time Spent With Patient Total time spent is greater than 50% in coordination of care (as documented) at patient's floor/unit and/or counseling patient:
--- NOTE | 2019-04-06 10:25 | Cardiology Consult Note ---
Date of Encounter: 04/06/19 Time of Encounter: 10:00 Assessment and Plan (1) Ventricular tachycardia Current Visit: Yes Status: Acute Patient presented with wide complex tachycardia, suspected VT. Patient was given IV amiodarone and reported converted to Aflutter. Upon exam, patient in Afib, rate 90's-100's. Hemodynamically stable. On Eliquis s/p recent DCCV (03/27/19), last dose 5 AM today, 04/06/19. TSH normal, electrolyte within expected range. Keep Mg >2.0, K >4.0. Recommend LHC to r/o ischemic etiology. A/R/B discussed, he is agreeable to proceed. Keep NPO, plan on this afternoon. May need to consider EP consult after LHC for management of PAF. (2) Paroxysmal atrial fibrillation Current Visit: Yes Status: Acute Hx of PAF ~8 years ago. Reports underwent LHC at that time with non-obstructive CAD. Has been managed on Flecainde, Toprol XL, and asa over the past several years. Recent LEONILA guided DCCV on 03/27 s/p increase in Flecainide d/t recurrent PAF. Was recommend for Eliquis 5 mg BID x1 month s/p DCCV. CHA2Ds Vasc=0. LHC pending. Discussion w patient/family: The assessment and plan as outlined above was discussed with the patient and/or family members who expressed understanding and agreement. All questions were answered. Thank you for involving us in the care of your patient. Please call with any questions. The patient will be discussed and reviewed with Dr. Velásquez; changes to be made accordingly. History of Present Illness Consult date: 04/06/19 Requesting physician: Yakelin Preston Consult reason: VT Chief complaint: Presyncope History of present illness: Mr. Mota is a 63 year old male with PMHx significant of PAF on Flecainde/Elqiuis and tobacco dependency who presented to the ED with complaints of presyncopal symptoms. He reports ongoing, intermittent palpitations over the past week. He notes that his heart rate/palpitations improve with rest however h e feels that he has been in afib for at least a week. He reports on Saturday, symptoms (dizziness, lightheadedness) worsened. Reports racing heart associated with "throat rawness" and "whole body tingling" occurs with minimal activity. Symptoms did not improve with rest this AM which prompted ED evaluation. Upon arrival to ED, ECG demonstrated wide complex tachycardia consistent with ventricular tachycardia. He was started on amiodarone gtt and per reports converted to atrial flutter. He was recently an inpatient earlier this month and underwent LEONILA guided DCCV for persistent atrial flutter, flecainide was increased and was given 30 day supply of eliquis s/p cardioversion. Pt. reports compliance with all medications. Recent CV testing: TTE 03/02/19: LVEF 60-65%, no significant valvular dysfunction, normal wall motion LEONILA guided DCCV 03/27/19: no LA, ALPHONSE thrombus; successful DCCV of atrial flutter; EF 50%, PFO with bidirectional shunt Past Med Surg Social Fam HX - Past Medical History Attestation: Yes The following information was validated with the patient. Source: patient Medical history: atrial fibrillation Psychiatric history: no psych history - Past Surgical History Surgical History: no surgical history - Social History Smoking Status: Current every day smoker Smokeless Tobacco Status: No Alcohol use: occasionally Drug use: none - Family History Mother Hx Family Cancer: Yes (lung, pancreatic) Father Hx Family Cancer: Yes (brain) Medications and Allergies Apixaban [Eliquis] 5 mg PO BID 30 Days #60 tablet 03/30/19 [Rx] Flecainide 150 mg PO Q12HR 30 Days #60 tablet 03/30/19 [Rx] Allergy/AdvReac Type Severity Reaction Status Date / Time No Known Allergies Allergy Verified 04/06/19 07:12 All Systems Review: The remainder of the systems were reviewed and are negative - Cardiovascular Cardiovascular: as per HPI Physical Examination Vital Signs, Last 4 Hours Temp Pulse Resp BP Pulse Ox 04/06/19 09:53 102 18 109/85 97 04/06/19 08:48 107 20 103/73 100 04/06/19 08:05 106 20 111/86 100 04/06/19 07:30 106 20 112/81 99 04/06/19 07:27 219 21 101/85 100 04/06/19 07:16 98.0 F 228 18 119/104 99 General: Conversant HEENT: Atraumatic, Normocephaly Cardiac: Other (irregularly irregular) Lungs: Normal Breath Sounds Neuro: Alert and responsive Abdomen: Soft Skin: No rashes noted on visualized skin Musculoskeletal: No Chest Wall Tenderness Extremities: No Edema, Normal Pulses Results 04/06/19 07:30 04/06/19 07:30 Lab Results 04/06/19 04/06/19 04/06/19 07:30 07:30 07:30 WBC 13.0 H Hgb 19.3 H Hct 56.3 H Plt Count 247 INR APTT Sodium 136 Potassium 4.2 Chloride 105 Carbon Dioxide 22 L BUN 16 Creatinine 0.99 Glucose 156 H Calcium 9.6 Magnesium 2.1 Troponin I < 0.03 B-Natriuretic Peptide 49 TSH 2.642 04/06/19 08:03 WBC Hgb Hct Plt Count INR 1.2 APTT 40.0 H Sodium Potassium Chloride Carbon Dioxide BUN Creatinine Glucose Calcium Magnesium Troponin I B-Natriuretic Peptide TSH Active Medications Heparin Sodium (Porcine) (Heparin) 5,000 unit SQ Q12HCO ALIYAH; Protocol Stop: 10/06/19 18:01 Amiodarone HCl/Dextrose (Amiodarone Drip Premix 360mg/200ml) 360 mg in 200 mls @ 33.333 mls/hr IVC ONCE ONE Stop: 04/06/19 13:24 Last Admin: 04/06/19 07:26 Dose: 1 mg/min, 33.3 mls/hr Documented by: Naloxone HCl (Narcan) 0.4 mg IVP Q2MPRN PRN PRN Reason: SEE COMMENTS Stop: 10/06/19 09:53 Nitroglycerin (Nitroglycerin) 0.4 mg SL Q5MPRN PRN PRN Reason: Chest Pain Stop: 10/06/19 09:55 - Imaging and Cardiology Echo: report reviewed - EKG Interpretation EKG results cardiology: personally reviewed Consult Discharge Plan - Plan Referrals: Urvashi Nguyễn, [employer]PER[employer]OR [Primary Care Provider] - CHADS2-VASC Score - Score Age: Less than 65 Sex: Male CHF History: No Hypertension history: No Stroke/TIA/Thromboembolism Hx: No Vascular disease history: No Diabetes history: No Score: 0 HAS-BLED Score - Score Medication usage predisposing to bleeding: Antiplatelet agents, NSAIDs, Anticoagulants Score: 1
[2019-04-06] MEDS: Amiodarone Premix 360 MG/200 ML BAG IVC SCH (13:12)
[2019-04-06] MEDS ORDERED: *HR* Midazolam HCl 2 MG/2 ML VIAL ONE (14:51)
[2019-04-06] MEDS ORDERED: *HR* FentaNYL (PF) 100 MCG/2 ML VIAL ONE (14:51)
--- NOTE | 2019-04-06 15:04 | Pre-Sedation Evaluation ---
Pre-sedation evaluation - Pre-sedation checklist Date of procedure: 04/06/19 Procedure: [facility] Recent Vitals: Last Vital Signs Temp 97.8 F 04/06/19 11:26 Pulse 103 04/06/19 11:26 Resp 18 04/06/19 11:26 BP 107/74 04/06/19 11:26 Pulse Ox 98 04/06/19 11:26 H&P (including ROS) documented in medical record: Yes Previous reaction to sedatives/anesthetics: No Dietary Status: NPO 6 hours prior to procedure Dentition: full dentition ASA Classification *see protocol: CLASS II-Mild systemic disease Plan of Care: Pt appropriate candidate for procedure/moderate/conscious sedation, Risks/benefits of procedure/sedation discussed w/ patient/family Cardiac Registry (Cardio Only) - Functional Capacity Functional Capacity: >=4 METS with symptoms - Clincal Frailty Scale Clinical Frailty Scale: Managing Well
[2019-04-06] MEDS ORDERED: Verapamil 5 MG/2 ML VIAL ONE (15:07)
[2019-04-06] MEDS ORDERED: Acetaminophen 325 MG TABLET PO PRN (15:56)
--- NOTE | 2019-04-06 16:04 | Event Note ---
Date of Encounter: 04/06/19 Time of Encounter: 16:00 - Cardiology Event Note PCI mLAD TOÑA x 1 85%, otherwise mild disease
--- NOTE | 2019-04-06 16:05 | Invasive Diagnostic Lab Proc ---
Name: Nguyễn Mota Date of Study: 04/06/2019 Date: 1955 Ht: 70.8in Medical Record#: [id number] Age: 63 Wt: 202.38lb Gender: Male BSA: 2.11 Order #: [id number] BMI: 28.4 Physicians Procedure Physician: Justin Bloom MD, [facility] Referring MD: Referring MD: Staff Name Position Time In Marlon Sterling RN Flyer Repairer 03:03 PM Olga Bourne RT (R) Scrub 03:05 PM Faiza, Esperanza RT (R) Monitor 03:05 PM Nadja Mckeon RT (R) 03:05 PM Ena Urrutia RN 03:05 PM Kalyan Matthews RN 03:05 PM Indications Indication Cardiac Arrhythmia Procedures Performed Procedure L HRT ARTERY/VENTRICLE ANGIO PRQ CARD TOÑA STENT W/ANGIO 1 VSL Pre-Procedure Checklist Informed consent is complete signed and on chart. H&P is on chart. ID band is on and ID verified with patient. Patient NPO for procedure The procedure was described for the patient and questions were answered. Blood Pressure: 109/85 ECG is on chart. Rhythm: Sinus Tachycardia Plan of Care Patient will tolerate the procedure without complications. Adequate level of comfort will be maintained. Hemodynamics will remain stable Patient will recover from procedure without complications. Respiratory function will be maintained. Cardiac rhythm will remain stable. Patient temperature will be maintained. Patient and/or family have verbalized understanding of the procedure. Patient Education Chief Complaint/Reason for Test: Cardiac Cath Developmental Category: Adult (18-64 years) Developmentally Appropriate for Age: Yes Learning Barriers: None Education Needs: Procedure Education Method: Verbal Information Taught: Cardiac Cath Educational Evaluation: Able to repeat information Intravenous Access Time IV Size Location DC'd Fluid/Drip Rate Units RN 20g 1 /" Patent On Arrival Rt Hand 0.9NaCl 25 ml/hr Marlon Sterling RN Allergies No Known Allergies Vital Signs Time BP (mmHg) HR (bpm) O2 Sat. RR (bpm) LOC 109 / 85 102 98 % 16 5 = Fully awake and oriented or at pre-proc level 03:06 PM / % 5 = Fully awake and oriented or at pre-proc level 03:11 PM 118 / 90 82 100 % 18 03:14 PM 118 / 84 84 100 % 15 03:19 PM 114 / 80 98 99 % 27 03:24 PM 100 / 66 97 98 % 15 03:29 PM 102 / 66 103 96 % 16 03:34 PM 108 / 64 100 97 % 15 03:39 PM 99 / 75 105 98 % 14 03:44 PM 108 / 82 78 99 % 17 03:49 PM 116 / 69 100 97 % 15 Procedural Medications Time Medication Dose Units Method Given By 03:05 PM Oxygen 2 L/min nasal cannula Marlon Sterling RN 03:11 PM Versed 2 mg Intravenous Marlon Sterling RN 03:11 PM Fentanyl 50 mcg Intravenous Marlon Sterling RN 03:21 PM Lidocaine 2% 0.5 ml Subcutaneous Justin Bloom MD, FACC 03:22 PM Heparin 4000 units Nitroglycerin 200 mcg Verapamil 2.5 mg Intraarterial Justin Bloom MD, FACC 03:43 PM Nitroglycerin 200 mcg Intracoronary Justin Bloom MD 03:50 PM Heparin 500 units Intravenous Marlon Sterling RN 03:51 PM Plavix 600 mg Orally Marlon Sterling RN ASA Classification: CLASS II- Mild systemic disease (i.e. well-controlled diabetes, hypertension, asthma, cigarette smoking) Penny Score Preprocedure Postprocedure Activity 2- Moves 4 extremities sustained head lift Activity 2- Moves 4 extremities sustained head lift Circulation 2- SBP +/= 20 points of pre-anesthetic level Circulation 2- SBP +/= 20 points of pre-anesthetic level Consciousness 2- Awake and alert oriented x 3 Consciousness 2- Awake and alert oriented x 3 O2 Saturation 2- Able to maintain O2 satruation of 92% on room air O2 Saturation 2- Able to maintain O2 satruation of 92% on room air Respiratory 2- Able to deep breathe and cough well Respiratory 2- Able to deep breathe and cough well Total Score 10 Total Score 10 Contrast Agent: Isovue Diagnostic Contrast: 130 ml Total Contrast: 130 ml Fluoro Dose: 28 mGy Activated Clotting Time Time Seconds to Clot 03:36 PM 314 Procedure Log Time Note Enter By 02:55 PM CathStat 03:03 PM Pt arrived to laborer drying department 2 at 15:03 [facility] 03:03 PM Patient charges- Angio tray pack, Navilyst 3mm J, Pulse Oximetry and ACIST tubing and transducer [facility] 03:03 PM Physician arrived 15:03 oummers 03:03 PM Meet and sadi completed 03:03 PM Sign in performed according to hospital policy. Informed consent was obtained. 03:03 PM Marlon Sterling RN Position: Flyer Repairer Time in: 15: 03:05 PM Olga Bourne RT (R) Position: Scrub Time in: 15: 03:05 PM Esperanza Kendall RT (R) Position: Monitor Time in: 15: 03:05 PM Procedure start 15: 03:05 PM Nadja Mckeon RT (R) Position: Time in: 15: 03:05 PM Ena Urrutia RN Position: Time in: 15: 03:05 PM Kalyan Matthews RN Position: Time in: 15: 03:05 PM Time: 15:05 Oxygen on at 2 L/min per nasal cannula by Marlon Sterling RN 03:05 PM Time: 15:05 Patient comfortable and pain free: Yes ts 03:06 PM Time: 15:06LOC: 5 = Fully awake and oriented or at pre-proc level tsites 03:06 PM Vitals capture started with the following parameters, Patient=Adult, Interval=5 min, Initial Prkmqkxl=365 mmHg, Deflation Rate=3 mmHg, Cuff placed on Right Arm 03:07 PM Recorded ECG: HR=82 Condition=Condition 1 03:08 PM Vitals capture started with the following parameters, Patient=Adult, Interval=5 min, Initial Vdpaviom=183 mmHg, Deflation Rate=3 mmHg, Cuff placed on Right Arm 03:09 PM Recorded ECG: HR=80 Condition=Condition 1 03:10 PM Hair removed from procedure site in holding area using clippers. Right wrist and Right groin prepped with Chloraprep by Olga Bourne RT (R), then patient was draped. Skin intact. tsites 03:11 PM HR=82 bpm, PCVJ=441/90 mmhg, EuL7=386 %, Resp=18 B/min 03:11 PM Time: 15:11 Versed 2 mg Intravenous Given by Marlon Sterling RN ts 03:11 PM Time: 15:11 Fentanyl 50 mcg Intravenous Given by Marlon Sterling RN tsites 03:14 PM HR=84 bpm, UEPW=388/84 mmhg, GxR2=904.0 %, Resp=15 B/min 03:19 PM HR=98 bpm, FJQS=425/80 mmhg, SpO2=99 %, Resp=27 B/min 03:19 PM Pressure channel 1 zero failed. 03:19 PM Pressure channel 1 zeroed. 03:21 PM Time out was performed according to hospital policy. Conscious sedation and anesthesia was achieved (see medication log with in this report above) tsites 03:21 PM Time: 15:21 0.5 ml Lidocaine 2% to right radial Subcutaneous Given by Justin Bloom MD, [facility] tsites 03:22 PM Access obtained by percutaneous puncture. 5/6Fr 10cm Terumo Glidesheath sheath placed in right Radial artery. [id number] tsites 03:23 PM Time: 15:22 Patient given 4,000 units Heparin, 200 mcg Nitroglycerin, and 2.5 mg Verapamil Intraarterial by Justin Bloom MD, [facility]. This is given to reduce risk of vessel spasm and thrombosis. tsites 03:24 PM HR=97 bpm, ZQTI=826/66 mmhg, SpO2=98 %, Resp=15 B/min 03:24 PM Recorded Pressure: LV, UE=725, Condition=Condition 1 (Left Ventricle) LV 87/-4/6 03:24 PM 5Fr TIG catheter inserted over the wire [facility] tsites 03:24 PM 0.035 260cm Navilyst 3mmJ wire [id number] tsites 03:24 PM Catheter crossed the aortic valve and was selectively placed in the left ventricle. Pressures recorded on pullback for left heart catheterization. tsites 03:24 PM Bolus angiogram of left Ventricle complete: 10 ml/sec for a total of 30 mls tsites 03:25 PM Recorded Pressure: LV, Ao, CJ=055, Condition=Condition 1 (Left Ventricle) LV 83/-2/8, (Aorta) Ao 78/60/68 03:25 PM LCA angiography performed in multiple views. tsites 03:26 PM Recorded Pressure: Ao, TL=628, Condition=Condition 1 (Aorta) Ao 73/63/68 03:27 PM Lesion found in Mid LAD. Pre Stenosis: 85 Pre LILLIAM Flow: 2: Partial Flow/Perfusion (> 1 but < 3) tsites 03:27 PM Mid/Distal Left Anterior Descending Coronary Artery and diagonal branches with 85% stenosis. If graft is supplying this area, 0 % stenosis tsites 03:27 PM Recorded Pressure: Ao, EY=071, Condition=Condition 1 (Aorta) Ao 101/-9/42 03:28 PM Coronary Dominance: right tsites 03:28 PM RCA angiography performed in multiple views. tsites 03:29 PM MD=084 bpm, QOWF=102/66 mmhg, SpO2=96.0 %, Resp=16 B/min 03:29 PM PCI Status Urgent tsites 03:29 PM 6Fr CLS 3.5 Runway guide catheter was used to cannulate the PCI vessel successfully. reused? No tsites 03:29 PM Inflation device was opened. tsites 03:30 PM .014 PT Graphix 180cm guide wire across target lesion- successful. reused? No tsites 03:32 PM ACT drawn tsites 03:34 PM WO=802 bpm, PPJL=531/64 mmhg, SpO2=97.0 %, Resp=15 B/min 03:35 PM 2.5 mm x 20 mm Emerge Monorail balloon across target lesion- successful. reused? No tsites 03:35 PM Balloon inflated @ 14 angelica for 17 seconds tsites 03:35 PM Balloon inflated @ 14 angelica for 12 seconds tsites 03:36 PM At 15:36 the ACT was 314 seconds. tsites 03:38 PM Balloon catheter removed intact. tsites 03:38 PM 3.5mm x 32mm Synergy drug-eluting stent across target lesion- successful Lot #[id number] tsites 03:39 PM ZS=165 bpm, NIBP=99/75 mmhg, SpO2=98.0 %, Resp=14 B/min 03:39 PM Stent deployed @ 11 angelica for 24 seconds tsites 03:40 PM Stent delivery system removed intact. tsites 03:40 PM 4.5 mm x 8mm NC Emerge balloon across target lesion- successful. reused? No tsites 03:42 PM Balloon inflated @ 5 angelica for 15 seconds tsites 03:43 PM Balloon inflated @ 12 angelica for 10 seconds tsites 03:43 PM Balloon inflated @ 8 angelica for 4 seconds tsites 03:44 PM HR=78 bpm, GRIN=092/82 mmhg, SpO2=99.0 %, Resp=17 B/min 03:44 PM Time: 15:43 Nitroglycerin 200 mcg Intracoronary Given by Justin Bloom MD tsites 03:45 PM Balloon catheter removed intact. tsites 03:46 PM 3.5 mm x 15mm NC Emerge balloon across target lesion- successful. reused? No tsites 03:47 PM Balloon inflated @ 18 angelica for 16 seconds tsites 03:48 PM Balloon inflated @ 18 angelica for 15 seconds tsites 03:49 PM Balloon catheter removed intact. tsites 03:49 PM NF=251 bpm, AUGA=276/69 mmhg, SpO2=97 %, Resp=15 B/min 03:49 PM Procedure completed at 15:49 04/06/2019 tsites 03:49 PM Did you address LILLIAM flow and Dominance? YesCoronary Dominance: right tsites 03:51 PM Time: 15:50 Heparin 500 units Intravenous Given by Marlon Sterling RN tsites 03:51 PM Time: 15:51 Plavix 600 mg Orally Given by Marlon Sterling RN tsites 03:52 PM Sign out completed: Radiation Dose 275 mGy, 28 Gy/cm2 Fluoro Time: 5.7 Isovue 370 - 200ml contrast 130 ml given by Justin Bloom MD, FAC. Complications: None. 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 Sedation minutes 39. Cardiac Rehab Consult needed: Yes. Confirmed administered medications: Yes tsites 03:52 PM Isovue 370 - 200ml,2 Bottle(s) used. tsites 03:53 PM Arterial sheath pulled, Vasc Band closure device used and was Successful S/N. tsites 03:53 PM 8 ml air in Vasc Band. tsites 03:53 PM Estimated Blood Loss: minimal tsites 03:53 PM Post ECG Atrial Fib/Flutter tsites 03:53 PM Post Blood Pressure 116/69 tsites 03:53 PM 15:53 Post Pulses Rt Radial 1+ tsites 03:53 PM Information taught Cardiac Cath, PCI, and Vasc Band tsites 03:54 PM Education needs Procedure, Plan of Care, and Responsibilities of Patient in Care tsites 03:55 PM Learning barriers :None tsites 03:55 PM Education Methods Verbal tsites 03:55 PM Education evaluation Able to repeat information tsites 03:55 PM Site status No bleeding/ No Hematoma - Rt Groin as reported by Olga Bourne RT (R) at 15:55 tsites 03:56 PM Report given to ramiro SALAZAR Pt taken to 2N Room #8. 15:56 tsites 03:56 PM Plavix, Effient or Brilinta given Yes tsites 03:56 PM Delay to floor No tsites 03:56 PM Patient out of room: 15:56 tsites 03:56 PM Family placed in consult room. tsites Complications Complication None Hemodynamics Pressures Site Systolic/A Wave Diastolic/V Wave Mean LV 87 -4 6 LV 83 -2 8 AO 78 60 68 AO 73 63 68 AO 101 -9 42 Post Procedure Information Blood Pressure: 116/69 mmHg Rhythm: Atrial Fib/Flutter Post procedural instructions were given Closure Device Time Device Success/Fail 04/06/2019 3:56:00 PM Mechanical Compression Successful Site Checks Time Location Status Staff Sheath In? Note 03:55 PM Rt Groin No bleeding/ No Hematoma Olga Bourne RT (R) Pulses Time Site Pre-Procedure Post-Procedure Note Bilateral DP & PT 1+ 3:53:00 PM Rt Radial 1+ Updated by Esperanza Faiza RT (R) on 04/06/2019 3:59:11 PM Esperanza Kendall RT electronically signed on 04/06/2019 3:59:35 PM with status of Final
[2019-04-06] MEDS: Ondansetron 8 MG in 0.9 % Sodium Chloride 50 ML IVPB ONE ×2 (17:07→17:49)
[2019-04-06] MEDS: *HR* Heparin 5,000 UNIT/ML VIAL SQ SCH (18:24)
[2019-04-07] MEDS: Amiodarone Premix 360 MG/200 ML BAG IVC SCH (01:12)
[2019-04-07 01:14] LABS: Hematocrit 46.6 % (37.5-50.1); Mean Corpuscular HGB Conc 34.3 g/dL (31.6-35.5); Mean Corpuscular Hemoglobin 30.9 pg (28.0-33.3); Mean Corpuscular Volume 90.1 fL (83.0-100.0); Mean Platelet Volume 10.3 fL (9.4-12.4); Platelet Count 189 K/mcL (140-400); Red Blood Count 5.17 M/mcL (4.19-5.50); Red Cell Distribution Width 12.6 % (11.5-14.5)
[2019-04-07 01:36] LABS: Alanine Aminotransferase 9 Units/L (7-52); Albumin 3.5 g/dL (3.5-5.7); Albumin/Globulin Ratio 1.5 (1.1-2.2); Alkaline Phosphatase 69 Units/L (34-104); Aspartate Amino Transferase 14 Units/L (13-39); BUN/Creatinine Ratio 15 (6-26); Bilirubin,Total 0.3 mg/dL (0.3-1.0); Blood Urea Nitrogen 14 mg/dL (8-23); Calcium 8.6 mg/dL (8.6-10.3); Carbon Dioxide 20 mEq/L (23-29); Chloride 109 mEq/L (98-107); Globulin 2.3 g/dL (2.4-3.5); Glucose 111 mg/dL (70-105); Osmolality,Calculated 287 (280-300); Potassium 3.9 mEq/L (3.5-5.1); Sodium 138 mEq/L (136-145); Total Protein 5.8 g/dL (6.4-8.9); eGFR For African Americans > 60 (> 60); eGFR For Non-African Americans > 60 (> 60)
[2019-04-07] MEDS: *HR* Heparin 5,000 UNIT/ML VIAL SQ SCH (06:37)
--- NOTE | 2019-04-07 10:11 | Cardiology Progress Note ---
<Wendy Ojeda - Last Filed: 04/07/19 10:34> Date of Encounter: 04/07/19 Time of Encounter: 10:09 Assessment and Plan (1) Ventricular tachycardia Current Visit: Yes Status: Acute Per cardiology: -Patient presented with ventricular tachycardia. -Patient was given IV amiodarone and reported converted to Aflutter. -Of note, patient was on flecanide, which has been stopped. -Currently on amio drip. No recurrence of VT noted. -LHC 04/06/19 with PCI to LAD, official report pending. -TTE 03/01/19 with LVEF preserved, no SWMA. -Discussed and reviewed with , will start amiodarone 400mg TID. After 2 doses of oral amio, will discontinue amio drip. -Will repeat limited TTE now. -Will add low dose beta vega. -Keep Mg >2.0, K >4.0. K replaced today. -Will continue to closely monitor. (2) CAD (coronary artery disease) Current Visit: Yes Status: Acute Per cardiology: -Prelim [facility] report reviewed with PCI to LAD with TOÑA. -Patient denies chest pain. Right radial access site without hematoma. -On asa, plavix. -TTE pending. -Will add statin, BB. Continue dual anti-platelet therapy for at least one year, unless otherwise directed by cardiology. Can consider discontinuation of ASA at 30 day humberto to avoid triple therapy. Qualifiers: Coronary Disease-Associated Artery/Lesion type: [place] artery [place] vs. transplanted heart: [place] heart Associated angina: without angina Qualified Code(s): I25.10 - Atherosclerotic heart disease of [place] coronary artery without angina pectoris (3) Paroxysmal atrial fibrillation Current Visit: Yes Status: Chronic Per cardiology: -Hx of PAF ~8 years ago. Reports underwent LHC at that time with non-obstructive CAD. -Has been managed on Flecainde, Toprol XL, and asa over the past several years. -Recent LEONILA guided DCCV on 03/27 s/p increase in Flecainide d/t recurrent PAF. -[id number] score 1. -Flecanide has been stopped and amiodarone started. -Will resume eliquis for anticoagulation. -Will add low dose BB for rate control. -Will refer to EP outpatient for ablation. (4) Tobacco abuse Current Visit: Yes Status: Chronic Per cardiology: -Known tobacco abuse. -Smoking cessation education reviewed with patient. -Will start nicotine patch. Discussion w patient/family: The assessment and plan as outlined above was discussed with the patient and/or family members who expressed understanding and agreement. All questions were answered. Thank you for involving us in the care of your patient. Please call with any questions. Discussed and reviewed with . Subjective Principal diagnosis: Ventricular tachycardia Interval history: Patient denies complaints today. Sitting in bed. at bedside. Objective Vital Signs, Last 4 Hours Temp Pulse Resp BP Pulse Ox 04/07/19 07:10 97.6 F 91 18 108/80 95 General: Conversant, No Apparent Distress HEENT: Atraumatic, Normocephaly, Mucus Membranes Moist Neck: No JVD, Normal carotid pulses Cardiac: Reg Rate and Rhythm, Normal S1 and S2, No Murmur Lungs: Normal Breath Sounds, No Wheeze, Rales, Rhonchi Neuro: Alert and responsive, No focal deficits noted Abdomen: Soft, Non-Tender Skin: No rashes noted on visualized skin, Other (Right radial access site without hematoma. ) Musculoskeletal: No Chest Wall Tenderness Extremities: No Clubbing, No Cyanosis, No Edema, Normal Pulses Results 04/07/19 00:31 04/07/19 00:31 Lab Results Active Medications Acetaminophen (Tylenol) 650 mg PO Q6HR PRN PRN Reason: Mild Pain Stop: 10/06/19 15:57 Amiodarone HCl (Cordarone) 400 mg PO TIDWM [facility] Stop: 10/07/19 12:01 Apixaban (Eliquis) 5 mg PO BID [facility]; Protocol Stop: 10/07/19 09:01 Aspirin (Aspirin Ec) 81 mg PO DAILY [facility] Stop: 10/07/19 09:01 Clopidogrel Bisulfate (Plavix) 75 mg PO DAILY [facility] Stop: 10/07/19 09:01 Last Admin: 04/07/19 07:53 Dose: 75 mg Documented by: Amiodarone HCl/Dextrose (Amiodarone Drip Premix 360mg/200ml) 360 mg in 200 mls @ 16.667 mls/hr IVC CONT [facility] Stop: 10/06/19 13:46 Last Admin: 04/07/19 01:12 Dose: 0.5 mg/min, 16.7 mls/hr Documented by: Metoprolol Succinate (Toprol Xl) 12.5 mg PO DAILY [facility] Stop: 10/07/19 10:09 Naloxone HCl (Narcan) 0.4 mg IVP Q2MPRN PRN PRN Reason: SEE COMMENTS Stop: 10/06/19 09:53 Nitroglycerin (Nitroglycerin) 0.4 mg SL Q5MPRN PRN PRN Reason: Chest Pain Stop: 10/06/19 09:55 Potassium Chloride (Potassium Chloride) 20 meq PO NOW ONE Stop: 04/07/19 08:31 Laboratory Tests 04/07/19 04/07/19 00:31 00:31 Hgb 16.0 D Potassium 3.9 Creatinine 0.91 Magnesium 2.0 - Imaging and Cardiology Chest Xray: report reviewed Echo: pending, report reviewed Cardiac cath: report reviewed - EKG Interpretation EKG results cardiology: other (Telemetry reviewed with average HR previous 12 hours noted to be 88, a.flutter. Rare PVCs noted.) Consult Discharge Plan - Plan Referrals: Urvashi Nguyễn CNP [Primary Care Provider] - 04/16/19 1:00 pm (Please fax discharge info to [phone]) Abbi Plascencia CNP [Partnered Physician] - (Per the cardiology office the office will call the patient at home with a follow up) CHADS2-VASC Score - Score Age: Less than 65 Sex: Male Vascular disease history: Yes Score: 1 HAS-BLED Score - Score Medication usage predisposing to bleeding: Antiplatelet agents, NSAIDs, Anticoagulants Score: 1 <Ayo Umanzor P - Last Filed: 04/07/19 11:58> Date of Encounter: 04/07/19 Assessment and Plan (1) Atrial fibrillation Current Visit: Yes Status: Acute Patient seen and examined. Likely proarrhythmia from flecainide in the setting of coronary artery disease. Wide-complex tachycardia/ventricular tachycardia noted. Flecainide discontinued. Successful revascularization completed. Atrial flutter with controlled rate on telemetry today. Plan is to transition to oral amiodarone and restart anticoagulation. If rate is not well controlled overnight and then LEONILA cardioversion prior to discharge. Ultimately consideration of atrial flutter ablation will be made. With regards to anticoagulation a dual antiplatelet therapy. He will have 30 days of aspirin and Plavix as well as L across and then transition to L across and Plavix. Follow-up to be arranged. Qualifiers: Atrial fibrillation type: paroxysmal Qualified Code(s): I48.0 - Paroxysmal atrial fibrillation (2) Ventricular tachycardia Current Visit: Yes Status: Acute Per cardiology: -Patient presented with ventricular tachycardia. -Patient was given IV amiodarone and reported converted to Aflutter. -Of note, patient was on flecanide, which has been stopped. -Currently on amio drip. No recurrence of VT noted. -LHC 04/06/19 with PCI to LAD, official report pending. -TTE 03/01/19 with LVEF preserved, no SWMA. -Discussed and reviewed with , will start amiodarone 400mg TID. After 2 doses of oral amio, will discontinue amio drip. -Will repeat limited TTE now. -Will add low dose beta vega. -Keep Mg >2.0, K >4.0. K replaced today. -Will continue to closely monitor. Discussion w patient/family: The assessment and plan as outlined above was discussed with the patient and/or family members who expressed understanding and agreement. All questions were answered. Thank you for involving us in the care of your patient. Please call with any questions. Objective Vital Signs, Last 4 Hours Temp Pulse Resp BP Pulse Ox 04/07/19 11:19 98.0 F 94 18 104/76 94 Results 04/07/19 00:31 04/07/19 00:31 Lab Results 04/07/19 04/07/19 00:31 00:31 WBC 10.0 Hgb 16.0 D Hct 46.6 Plt Count 189 Sodium 138 Potassium 3.9 Chloride 109 H Carbon Dioxide 20 L BUN 14 Creatinine 0.91 Glucose 111 H Calcium 8.6 Magnesium 2.0 Total Bilirubin 0.3 AST 14 ALT 9 Alkaline Phosphatase 69
[2019-04-07] MEDS: Apixaban 5 MG TABLET PO SCH ×2 (10:59→21:09)
[2019-04-07] MEDS: *HR* Amiodarone 200 MG TABLET PO SCH ×2 (10:59→16:54)
[2019-04-07] MEDS: Aspirin Enteric Coated 81 MG Tablet PO SCH (11:00)
[2019-04-07] MEDS: Nicotine 21 MG PATCH.TD24 TD SCH (11:00)
[2019-04-07] MEDS: Metoprolol XL (24 HR) Succ 25 MG TAB.ER.24H PO SCH (11:04)
--- NOTE | 2019-04-07 12:22 | Internal Med Progress Note ---
Hospitalist Progress Note - Encounter Date of Encounter: 04/07/19 Time of Encounter: 12:20 - Subjective Interval History: Feeling much improved this morning. Requests nicotine patch. All sx that he presented with are now currently resolved. - Exam Vitals: Temp Pulse Resp BP Pulse Ox 98.0 F 94 18 104/76 94 04/07/19 11:19 04/07/19 11:19 04/07/19 11:19 04/07/19 11:19 04/07/19 11:19 Exam: General: Ill-appearing and in no acute distress HEENT: No erythema of posterior pharynx. No exudates. Lymphatics: No mandibular or cervical lymphadenopathy Cardiovascular: RRR. No murmurs. No chest wall tenderness. Lungs: Clear to auscelltation bilaterally. Regular chest rise. Abdomen: Non-tender. No rebound or gaurding. Nl bowel sounds. Extremities: No edema. 2+ pulses radial and pedal pulses Skin: No rahses, abrasions, or contusions. Nl cap refill. Psych: Nl attention. 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 5/5 strength. Sensation to light touch and pinprick intact. - Assessment and Plan (1) CAD (coronary artery disease) Current Visit: Yes Status: Acute Assessment and Plan: Patient presented with weakness, dizziness, and palpitations and found to be in ventricular tachycardia, further investigation showing 85% stenotic lesion in mLDA s/p TOÑA. -ASA, Plavix, Statin, and metoprolol (2) Ventricular tachycardia Current Visit: Yes Status: Acute Assessment and Plan: Patient presented with weakness, dizziness, and palpitations and found to be in ventricular tachycardia s/p amiodarone bolus and ggt with conversion to afib. -Further investigation showing 85% stenotic lesion in mLDA s/p TOÑA. -Given reversible cause, should not need ICD -EP consulted and recommend po amio with metop PLAN: - Amiodarone 400mg tid - Metoprolol 12.5mg qd (3) Atrial fibrillation with RVR Current Visit: No Status: Resolved Assessment and Plan: On Flecainide before admission and presented with vtach s/p amiodarone bolus and ggt. -EP rec po amio and metop PLAN: - Amiodarone 400mg tid - Metoprolol 12.5mg qd - Home Eliquis DVT Prophylaxis: Eliquis Internal Medicine: Result - Labs CBC & Chem 7: 04/07/19 00:31 04/07/19 00:31 Labs: Short CBC 04/07/19 Range/Units 00:31 WBC 10.0 (4.3-11.1) K/mcL Hgb 16.0 D (12.9-16.9) g/dL Hct 46.6 (37.5-50.1) % Plt Count 189 (140-400) K/mcL BMP 04/07/19 00:31 Sodium 138 Potassium 3.9 Chloride 109 H Carbon Dioxide 20 L BUN 14 Creatinine 0.91 Glucose 111 H Calcium 8.6 Liver Function 04/07/19 Range/Units 00:31 Total Bilirubin 0.3 (0.3-1.0) mg/dL AST 14 (13-39) Units/L ALT 9 (7-52) Units/L Alkaline Phosphatase 69 (34-104) Units/L Albumin 3.5 (3.5-5.7) g/dL - ABG Interpretation ABG results: PT/INR, D-dimer PT 14.0 Seconds (9.4-12.1) H 04/06/19 08:03 Consult Discharge Plan - Plan Referrals: Urvashi Nguyễn [employer] [Primary Care Provider] - 04/16/19 1:00 pm (Please fax discharge info to [phone]) Abbi Plascencia CNP [Partnered Physician] - (Per the cardiology office the office will call the patient at home with a follow up) (1) CAD (coronary artery disease) Qualifiers: Coronary Disease-Associated Artery/Lesion type: [place] artery [place] vs. transplanted heart: [place] heart Associated angina: without angina Qualified Code(s): I25.10 - Atherosclerotic heart disease of [place] coronary artery without angina pectoris
--- NOTE | 2019-04-07 16:07 | Electrocardiograph Report ---
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
[2019-04-08] MEDS: *HR* Amiodarone 200 MG TABLET PO SCH ×5 (07:26→17:19)
[2019-04-08] MEDS: Aspirin Enteric Coated 81 MG Tablet PO SCH (07:26)
[2019-04-08] MEDS: Nicotine 21 MG PATCH.TD24 TD SCH (07:26)
[2019-04-08] MEDS: Metoprolol XL (24 HR) Succ 25 MG TAB.ER.24H PO SCH (07:26)
[2019-04-08] MEDS: Apixaban 5 MG TABLET PO SCH ×2 (07:26→21:40)
--- NOTE | 2019-04-08 09:51 | Cardiology Progress Note ---
Date of Encounter: 04/08/19 Time of Encounter: 08:45 Assessment and Plan (1) Ventricular tachycardia Current Visit: Yes Status: Acute Per cardiology: -Patient presented with ventricular tachycardia. -Patient was given IV amiodarone and reported converted to Aflutter. -Of note, patient was on flecanide, which has been stopped. -Currently on amio and BB oral. No recurrence of VT noted. -LHC 04/06/19 with PCI to LAD, official report pending. -TTE 03/01/19 with LVEF preserved, no SWMA. -Repeat limited TTE this admission with LVEF 50%, no SWMA. -Discussed with , continue oral amio, BB. Will plan for EP consult in am. -Keep Mg >2.0, K >4.0. K replaced today. -Will continue to closely monitor. (2) CAD (coronary artery disease) Current Visit: Yes Status: Acute Per cardiology: -Prelim [facility] report reviewed with PCI to LAD with TOÑA. -Patient denies chest pain. Right radial access site without ecchymosis or hematoma. -On asa, plavix, statin, BB. -Continue dual anti-platelet therapy for at least one year, unless otherwise directed by cardiology. Can consider discontinuation of ASA at 30 day humberto to avoid triple therapy. Qualifiers: Coronary Disease-Associated Artery/Lesion type: [place] artery [place] vs. transplanted heart: [place] heart Associated angina: without angina Qualified Code(s): I25.10 - Atherosclerotic heart disease of [place] coronary artery without angina pectoris (3) Paroxysmal atrial fibrillation Current Visit: Yes Status: Chronic Per cardiology: -Hx of PAF ~8 years ago. Reports underwent LHC at that time with non-obstructive CAD. -Has been managed on Flecainde, Toprol XL, and asa over the past several years. -Recent LEONILA guided DCCV on 03/27 s/p increase in Flecainide d/t recurrent PAF. -[id number] score 1. -Patient is now SR. -Continue amio, BB, eliquis. -Continue current medical regimen. (4) Tobacco abuse Current Visit: Yes Status: Chronic Per cardiology: -Known tobacco abuse. -Smoking cessation education reviewed with patient. -Will start nicotine patch. Discussion w patient/family: The assessment and plan as outlined above was discussed with the patient and/or family members who expressed understanding and agreement. All questions were answered. Thank you for involving us in the care of your patient. Please call with any questions. Discussed and reviewed with Subjective Principal diagnosis: Ventricular tachycardia Interval history: Patient denies complaints today. Denies chest pain, palpitations, fluttering. Objective Vital Signs, Last 4 Hours Temp Pulse Resp BP Pulse Ox 04/08/19 07:06 97.8 F 55 18 111/75 96 General: Conversant, No Apparent Distress HEENT: Atraumatic, Normocephaly, Mucus Membranes Moist Neck: No JVD, Normal carotid pulses Cardiac: Reg Rate and Rhythm, Normal S1 and S2, No Murmur Lungs: Normal Breath Sounds, No Wheeze, Rales, Rhonchi Neuro: Alert and responsive, No focal deficits noted Abdomen: Soft, Non-Tender Skin: No rashes noted on visualized skin, Other (Right radial access site without ecchymosis, or hematoma. ) Musculoskeletal: No Chest Wall Tenderness Extremities: No Clubbing, No Cyanosis, No Edema, Normal Pulses Results 04/07/19 00:31 04/07/19 00:31 Impressions Echocardiogram Limited Views 04/07/19 09:13 Impressions: LVEF 50%. Normal right ventricular size with mild hypokinesis. Left Ventricular Wall Motion: Rest Echo Findings All wall segments showed normal motion. Findings: Study Quality * Technically sub-optimal due to clinical status. ECG Findings * Atrial flutter. Left Ventricle * LVEF 50%. * Normal LV chamber size, wall thickness and systolic function. Right Ventricle * Normal right ventricular size with mild hypokinesis. Left Atrium * Normal left atrial size. Right Atrium * Normal right atrial size. Tricuspid Valve * Estimated RA pressure is 3 mmHg. IVC * The IVC is not dilated. * > 50% respiratory change Active Medications Acetaminophen (Tylenol) 650 mg PO Q6HR PRN PRN Reason: Mild Pain Stop: 10/06/19 15:57 Amiodarone HCl (Cordarone) 400 mg PO TIDWM [facility] Stop: 10/07/19 12:01 Last Admin: 04/08/19 07:26 Dose: 400 mg Documented by: Apixaban (Eliquis) 5 mg PO BID [facility]; Protocol Stop: 10/07/19 09:01 Last Admin: 04/08/19 07:26 Dose: 5 mg Documented by: Aspirin (Aspirin Ec) 81 mg PO DAILY [facility] Stop: 10/07/19 09:01 Last Admin: 04/08/19 07:26 Dose: 81 mg Documented by: Atorvastatin Calcium (Lipitor) 40 mg PO HS [facility] Stop: 10/07/19 21:01 Last Admin: 04/07/19 21:09 Dose: 40 mg Documented by: Clopidogrel Bisulfate (Plavix) 75 mg PO DAILY [facility] Stop: 10/07/19 09:01 Last Admin: 04/08/19 07:26 Dose: 75 mg Documented by: Metoprolol Succinate (Toprol Xl) 12.5 mg PO DAILY [facility] Stop: 10/07/19 10:09 Last Admin: 04/08/19 07:26 Dose: 12.5 mg Documented by: Naloxone HCl (Narcan) 0.4 mg IVP Q2MPRN PRN PRN Reason: SEE COMMENTS Stop: 10/06/19 09:53 Nicotine (Nicoderm) 21 mg TD DAILY [facility]; Protocol Stop: 10/07/19 10:19 Last Admin: 04/08/19 07:26 Dose: 21 mg Documented by: Nitroglycerin (Nitroglycerin) 0.4 mg SL Q5MPRN PRN PRN Reason: Chest Pain Stop: 10/06/19 09:55 - Imaging and Cardiology Chest Xray: report reviewed Echo: report reviewed Cardiac cath: report reviewed - EKG Interpretation EKG results cardiology: other (Telemetry reviewed with average HR previous 12 hours noted to be 73, SR. Paroxysmal atrial flutter noted. Rare PVCS noted. Currently SR.) Consult Discharge Plan - Plan Referrals: Urvashi Nguyễn CNP [Primary Care Provider] - 04/16/19 1:00 pm (Please fax discharge info to [phone]) Abbi Plascencia CNP [Partnered Physician] - (Per the cardiology office the office will call the patient at home with a follow up)
--- NOTE | 2019-04-08 16:05 | Internal Med Progress Note ---
Hospitalist Progress Note - Encounter Date of Encounter: 04/08/19 Time of Encounter: 16:02 - Subjective Interval History: No acute events overnight. Rate and rhythm without controlled on current medications. Patient reports all symptoms have resolved. Feeling better. - Exam Vitals: Temp Pulse Resp BP Pulse Ox 97.8 F 66 18 116/77 94 04/08/19 11:27 04/08/19 11:27 04/08/19 11:27 04/08/19 11:27 04/08/19 11:27 Exam: General: Ill-appearing and in no acute distress HEENT: No erythema of posterior pharynx. No exudates. Lymphatics: No mandibular or cervical lymphadenopathy Cardiovascular: RRR. No murmurs. No chest wall tenderness. Lungs: Clear to auscelltation bilaterally. Regular chest rise. Abdomen: Non-tender. No rebound or gaurding. Nl bowel sounds. Extremities: No edema. 2+ pulses radial and pedal pulses Skin: No rahses, abrasions, or contusions. Nl cap refill. Psych: Nl attention. 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 5/5 strength. Sensation to light touch and pinprick intact. - Assessment and Plan (1) Atrial fibrillation with RVR Current Visit: Yes Status: Resolved Assessment and Plan: On Flecainide before admission and presented with vtach s/p amiodarone bolus and ggt. -Cardiology rec po amio and metop PLAN: - Discontinue flecainide - Amiodarone 400mg tid - Metoprolol 12.5mg qd - OP f/u for possible ablation - Home Eliquis - Transfer patient out of stepd down unit to telemetry floor (2) Ventricular tachycardia Current Visit: Yes Status: Acute Assessment and Plan: Patient presented with weakness, dizziness, and palpitations and found to be in ventricular tachycardia s/p amiodarone bolus and ggt with conversion to afib. -Further investigation showing 85% stenotic lesion in mLDA s/p TOÑA. -Given reversible cause, should not need ICD -Cardiology consulted and recommend po amio with metop PLAN: - Amiodarone 400mg tid - Metoprolol 12.5mg qd - EP will see patient tomorrow for further recommendations per cardiology (3) CAD (coronary artery disease) Current Visit: Yes Status: Acute Assessment and Plan: Patient presented with weakness, dizziness, and palpitations and found to be in ventricular tachycardia, further investigation showing 85% stenotic lesion in mLDA s/p TOÑA. -ASA, Plavix, Statin, and metoprolol - Time Spent with Patient Total time spent is greater than 50% in coordination of care (as documented) at patient's floor/unit and/or counseling patient: 40 Plan of Care Discussed with: patient Internal Medicine: Result - Labs CBC & Chem 7: 04/07/19 00:31 04/07/19 00:31 - ABG Interpretation ABG results: PT/INR, D-dimer PT 14.0 Seconds (9.4-12.1) H 04/06/19 08:03 Consult Discharge Plan - Plan Referrals: Urvashi Nguyễn, RN [facility] [Primary Care Provider] - 04/16/19 1:00 pm (Please fax discharge info to [phone]) Abbi Plascencia, RN [facility] [Partnered Physician] - (Per the cardiology office the office will call the patient at home with a follow up) (3) CAD (coronary artery disease) Qualifiers: Coronary Disease-Associated Artery/Lesion type: [place] artery [place] vs. transplanted heart: [place] heart Associated angina: without angina Qualified Code(s): I25.10 - Atherosclerotic heart disease of [place] coronary artery without angina pectoris
[2019-04-09] MEDS ORDERED: Acetaminophen 325 MG TABLET PO PRN (08:45)
[2019-04-09] MEDS ORDERED: Naloxone 0.4 MG/ML INJ IVP PRN (08:48)
[2019-04-09] MEDS ORDERED: Nitroglycerin 0.4 MG TAB.SUBL SL PRN (08:49)
[2019-04-09] MEDS ORDERED: Aspirin Enteric Coated 81 MG Tablet PO SCH (09:00)
[2019-04-09] MEDS ORDERED: Nicotine 21 MG PATCH.TD24 TD SCH (09:00)
[2019-04-09] MEDS ORDERED: Metoprolol XL (24 HR) Succ 25 MG TAB.ER.24H PO SCH (09:00)
[2019-04-09] MEDS ORDERED: Apixaban 5 MG TABLET PO SCH (09:00)
[2019-04-09] MEDS: *HR* Amiodarone 200 MG TABLET PO SCH ×3 (09:16→13:13)
--- NOTE | 2019-04-09 09:42 | Electrophysiology Consult Note ---
<RustyWendy J - Last Filed: 04/09/19 14:50> Date of Encounter: 04/09/19 Time of Encounter: 09:38 Assessment and Plan (1) Ventricular tachycardia Status: Acute Per EP: -Patient presented with ventricular tachycardia. -Patient was given IV amiodarone and reported converted to Aflutter. -Of note, patient was on flecanide, which has been stopped. -Currently on amio and BB oral. No recurrence of VT noted. -[facility] 04/06/19 with PCI to LAD, official report pending. -TTE 03/01/19 with LVEF preserved, no SWMA. -Repeat limited TTE this admission with LVEF 50%, no SWMA. -Discussed and reviewed with Dr.John Whitfield, recommend amiodarone 200mg BID at discharge. -Keep Mg >2.0, K >4.0. -EP/Cardiology will sign off, will arrange close outpatient follow up. (2) Paroxysmal atrial fibrillation Status: Chronic Per EP: -Hx of PAF ~8 years ago. Reports underwent [facility] at that time with non-obstructive CAD. -Has been managed on Flecainde, Toprol XL, and asa over the past several years. -Recent LEONILA guided DCCV on 03/27 s/p increase in Flecainide d/t recurrent PAF. -[id number] score 1. -Patient is now SR. -Continue amio, BB, eliquis. -Continue amio 200mg BID. (3) CAD (coronary artery disease) Status: Acute Per EP: -Prelim [facility] report reviewed with PCI to LAD with TOÑA. -Patient denies chest pain. Right radial access site without ecchymosis or hematoma. Right radial access site management education reviewed with patient. -On asa, plavix, statin, BB. -Continue dual anti-platelet therapy for at least one year, unless otherwise directed by cardiology. Can consider discontinuation of ASA at 30 day humberto to avoid triple therapy. Discussed with patient and family. Qualifiers: Coronary Disease-Associated Artery/Lesion type: [place] artery [place] vs. transplanted heart: [place] heart Associated angina: without angina Qualified Code(s): I25.10 - Atherosclerotic heart disease of [place] coronary artery without angina pectoris Discussion w patient/family: The assessment and plan as outlined above was discussed with the patient and/or family members who expressed understanding and agreement. All questions were answered. Thank you for involving us in the care of your patient. Please call with any questions. Discussed and reviewed with Dr.John Whitfield. History of Present Illness Consult date: 04/09/19 Requesting physician: Soto Hernandez Consult reason: VT Chief complaint: irregular heart beat History of present illness: Mr. Mota is a 63 year old male with a relevant past medical history of PAF on Flecainde/Elqiuis and tobacco dependency, who presented to [facility] with complaints of irregular heart beat. Also reported near syncope. Denies syncope. Patient reported intermittent a.fib for one week. Patient did report dizziness, lightheadedness with exertion. Patient reports every time he would do any activities, he felt like he was going to pass out. Of note, patient with recent admission for a.fib and flecanide was increased. Patient was noted to be in ventricular tachycardia on admission and was given IV amio which reportedly converted him to a.flutter. Flecanide has been stopped and patient was given IV amio load, and started on po amio. Patient underwent [facility] with PCI to LAD. EP has been consulted for further recommendations. Past Med Surg Social Fam HX - Past Medical History Attestation: Yes The following information was validated with the patient. Source: patient, old records reviewed Medical history: atrial fibrillation Psychiatric history: no psych history - Past Surgical History Surgical History: no surgical history - Social History Smoking Status: Current every day smoker Smokeless Tobacco Status: No Alcohol use: occasionally Drug use: none - Family History Mother Hx Family Cancer: Yes (lung, pancreatic) Father Hx Family Cancer: Yes (brain) Medications and Allergies Apixaban [Eliquis] 5 mg PO BID 30 Days #60 tablet 03/30/19 [Rx] Amiodarone [Cordarone] 200 mg PO BID #60 tablet 04/09/19 [Rx] Aspirin Enteric Coated [Aspirin EC] 81 mg PO DAILY #30 tablet. 04/09/19 [Rx] Atorvastatin [Lipitor] 40 mg PO HS #30 tablet 04/09/19 [Rx] Clopidogrel [Plavix] 75 mg PO DAILY #30 tablet 04/09/19 [Rx] Metoprolol XL (24 HR) Succ [Toprol Xl] 12.5 mg PO DAILY #30 tab.er.24h 04/09/19 [Rx] Allergy/AdvReac Type Severity Reaction Status Date / Time No Known Allergies Allergy Verified 04/06/19 07:12 All Systems Review: The remainder of the systems were reviewed and are negative - Cardiovascular Cardiovascular: as per HPI, palpitations, other (Near syncope) Physical Examination Vital Signs, Last 4 Hours Temp Pulse Resp BP Pulse Ox 04/09/19 07:04 97.8 F 51 16 105/74 94 General: Conversant, No Apparent Distress HEENT: Atraumatic, Normocephaly, Mucus Membranes Moist Neck: No JVD, Normal carotid pulses Cardiac: Reg Rate and Rhythm, Normal S1 and S2, No Murmur Lungs: Normal Breath Sounds, No Wheeze, Rales, Rhonchi Neuro: Alert and responsive, No focal deficits noted Abdomen: Soft, Non-Tender Skin: No rashes noted on visualized skin, Other (Right radial access site wit hout ecchymosis or hematoma. ) Musculoskeletal: No Chest Wall Tenderness Extremities: No Clubbing, No Cyanosis, No Edema, Normal Pulses Results 04/07/19 00:31 04/07/19 00:31 Active Medications Acetaminophen (Tylenol) 650 mg PO Q6HR PRN PRN Reason: Pain Stop: 10/09/19 08:46 Amiodarone HCl (Cordarone) 400 mg PO TIDWM [facility] Stop: 10/09/19 09:01 Last Admin: 04/09/19 09:16 Dose: 400 mg Documented by: Apixaban (Eliquis) 5 mg PO BID [facility]; Protocol Stop: 10/09/19 09:01 Last Admin: 04/09/19 09:13 Dose: 5 mg Documented by: Aspirin (Aspirin Ec) 81 mg PO DAILY [facility] Stop: 10/09/19 09:01 Last Admin: 04/09/19 09:14 Dose: 81 mg Documented by: Atorvastatin Calcium (Lipitor) 40 mg PO HS [facility] Stop: 10/09/19 21:01 Clopidogrel Bisulfate (Plavix) 75 mg PO DAILY [facility] Stop: 10/09/19 09:01 Last Admin: 04/09/19 09:13 Dose: 75 mg Documented by: Metoprolol Succinate (Toprol Xl) 12.5 mg PO DAILY [facility] Stop: 10/09/19 09:01 Last Admin: 04/09/19 09:16 Dose: Not Given Documented by: Naloxone HCl (Narcan) 0.4 mg IVP Q2MPRN PRN PRN Reason: SEE COMMENTS Stop: 10/09/19 08:49 Nicotine (Nicoderm) 21 mg TD DAILY [facility]; Protocol Stop: 10/09/19 09:01 Last Admin: 04/09/19 09:14 Dose: 21 mg Documented by: Nitroglycerin (Nitroglycerin) 0.4 mg SL Q5MPRN PRN PRN Reason: Chest Pain Stop: 10/09/19 08:50 - Imaging and Cardiology Chest Xray: report reviewed Echo: report reviewed Cardiac cath: report reviewed - EKG Interpretation EKG results cardiology: personally reviewed (ECG on admission with VT.), other (Telemetry reviewed with average HR previous 12 hours noted to be 52, SB. PVCs, PACs noted.) Consult Discharge Plan - Plan Instructions: Metoprolol (By mouth), Aspirin (By mouth), Amiodarone (By mouth), Orphenadrine Citrate/Aspirin/Caffeine (By mouth), Atorvastatin (By mouth), Clopidogrel (By mouth), Atrial Fibrillation (DC) Additional Instructions: patient to f/u with Dr. Whitfield EP in 2 weeks and PCP in 2 weeks. Referrals: Urvashi Nguyễn CNP [Primary Care Provider] - 04/16/19 1:00 pm (Please fax discharge info to [phone]) Abbi Plascencia CNP [Partnered Physician] - (Per the cardiology office the office will call the patient at home with a follow up) Prescriptions: Aspirin Enteric Coated [Aspirin EC] 81 mg PO DAILY #30 tablet.dr Prescription Printed Amiodarone [Cordarone] 200 mg PO BID #60 tablet Prescription Printed Atorvastatin [Lipitor] 40 mg PO HS #30 tablet Prescription Printed Clopidogrel [Plavix] 75 mg PO DAILY #30 tablet Prescription Printed Metoprolol XL (24 HR) Succ [Toprol Xl] 12.5 mg PO DAILY #30 tab.er.24h Prescription Printed CHADS2-VASC Score - Score Sex: Male Score: 0 HAS-BLED Score - Score Medication usage predisposing to bleeding: Antiplatelet agents, NSAIDs, Anticoagulants Score: 1 <Jose Miguel Whitfield - Last Filed: 04/13/19 09:59> Date of Encounter: 04/13/19 - Attending Attestation I have personally performed a face to face evaluation on this patient. I have reviewed and agree with the care plan. History and Exam by me shows: Presented with AFL and VT. Left heart cath revealed new diagnosis of CAD, stent to LAD. Will need to d/c flecainide, consider alternate antiarrythmic. Assessment and Plan Discussion w patient/family: The assessment and plan as outlined above was discussed with the patient and/or family members who expressed understanding and agreement. All questions were answered. Thank you for involving us in the care of your patient. Please call with any questions. History of Present Illness History of present illness: Mr. Mota is a 63 year old male All Systems Review: The remainder of the systems were reviewed and are negative Results 04/07/19 00:31 04/07/19 00:31
[2019-04-09 12:35] VITALS: BP 118/65
--- NOTE | 2019-04-09 14:05 | Internal Med Progress Note ---
Hospitalist Progress Note - Encounter Date of Encounter: 04/09/19 Time of Encounter: 14:03 - Subjective Interval History: Patient seen and examined. No acute complaints. Patient is anxious to leave. HR this morning and overnight was in the 50s. Morning amiodarone held until conferred with cardiology. - Exam Vitals: Temp Pulse Resp BP Pulse Ox 98.2 F 53 16 118/65 96 04/09/19 12:33 04/09/19 12:33 04/09/19 12:33 04/09/19 12:33 04/09/19 12:33 Exam: General: Ill-appearing and in no acute distress HEENT: No erythema of posterior pharynx. No exudates. Lymphatics: No mandibular or cervical lymphadenopathy Cardiovascular: RRR. No murmurs. No chest wall tenderness. Lungs: Clear to auscelltation bilaterally. Regular chest rise. Abdomen: Non-tender. No rebound or gaurding. Nl bowel sounds. Extremities: No edema. 2+ pulses radial and pedal pulses Skin: No rahses, abrasions, or contusions. Nl cap refill. Psych: Nl attention. A&Ox3 Neuro: galley boy II-XII intact. 5/5 strength. Sensation to light touch and pinprick intact. - Assessment and Plan (1) Atrial fibrillation with RVR Current Visit: Yes Status: Resolved Assessment and Plan: On Flecainide before admission and presented with vtach s/p amiodarone bolus and ggt. -Cardiology rec po amio and metoprolol -TODAY: HR down to 50s; held morning amiodarone PLAN: - Discontinue flecainide - Amiodarone 400mg tid - Metoprolol 12.5mg qd - EP has been consulted to advise; defer further med adjustments to cardio and EP - Home Eliquis (2) Ventricular tachycardia Current Visit: Yes Status: Acute Assessment and Plan: Patient presented with weakness, dizziness, and palpitations and found to be in ventricular tachycardia s/p amiodarone bolus and ggt with conversion to afib. -Further investigation showing 85% stenotic lesion in mLDA s/p TOÑA. -Given reversible cause, should not need ICD -Cardiology consulted and recommend po amio with metop PLAN: - Amiodarone 400mg tid - Metoprolol 12.5mg qd - EP will see patient today for further recommendations per cardiology (3) CAD (coronary artery disease) Current Visit: Yes Status: Acute Assessment and Plan: Patient presented with weakness, dizziness, and palpitations and found to be in ventricular tachycardia, further investigation showing 85% stenotic lesion in mLDA s/p TOÑA. -ASA, Plavix, Statin, and metoprolol - Time Spent with Patient Total time spent is greater than 50% in coordination of care (as documented) at patient's floor/unit and/or counseling patient: 30 minutes Plan of Care Discussed with: patient Internal Medicine: Result - Labs CBC & Chem 7: 04/07/19 00:31 04/07/19 00:31 - ABG Interpretation ABG results: PT/INR, D-dimer PT 14.0 Seconds (9.4-12.1) H 04/06/19 08:03 Consult Discharge Plan - Plan Referrals: Urvashi Nguyễn CNP [Primary Care Provider] - 04/16/19 1:00 pm (Please fax discharge info to [phone]) Abbi Plascencia CNP [Partnered Physician] - (Per the cardiology office the office will call the patient at home with a follow up) (3) CAD (coronary artery disease) Qualifiers: Coronary Disease-Associated Artery/Lesion type: [place] artery [place] vs. transplanted heart: [place] heart Associated angina: without angina Qualified Code(s): I25.10 - Atherosclerotic heart disease of [place] coronary artery without angina pectoris
--- NOTE | 2019-04-09 14:51 | Discharge Summary ---
Date of Encounter: 04/09/19 - Discharge Diagnosis (1) Atrial fibrillation with RVR Status: Resolved (2) Ventricular tachycardia Status: Acute (3) CAD (coronary artery disease) Status: Acute Qualifiers: Qualified Code(s): I25.10 - Atherosclerotic heart disease of [place] coronary artery without angina pectoris Hospital course: Mr. Mota is a 63 year old male - Time Spent with Patient Total time spent providing and/or coordinating discharge services: - Discharge Medications Prescriptions: No Action Apixaban [Eliquis] 5 mg PO BID 30 Days #60 tablet Flecainide 150 mg PO Q12HR 30 Days #60 tablet Home Medications: Apixaban [Eliquis] 5 mg PO BID 30 Days #60 tablet 03/30/19 [Rx] Flecainide 150 mg PO Q12HR 30 Days #60 tablet 03/30/19 [Rx] Allergies/Adverse Reactions: Allergy/AdvReac Type Severity Reaction Status Date / Time No Known Allergies Allergy Verified 04/06/19 07:12 Date of admission: 04/06/19 10:08 Primary care physician: Urvashi Nguyễn CNP Consults: 04/06/19 07:43 Consult to Cardiology [CONS] Stat Comment: Consulting Provider: Cardiology [place] Reason for Consult: Pt presented in [facility], given amnio, now in atrial flutter. Hx of Afib with cardioversion last week Time Notified: 07:44 Call Completed: Yes 04/06/19 15:56 Consult to Cardiac Rehabilitation-Phase1 [CONS] Routine Comment: Reason for Consult: post op PCI Call Completed: Yes 04/09/19 08:56 Consult to Electrophysiology (EP) [CONS] Routine Consulting Provider: Electrophysiology [place] Reason for Consult: VT Call Completed: Yes - Constitutional Vitals: Temp Pulse Resp BP Pulse Ox 98.2 F 53 16 118/65 96 04/09/19 12:33 04/09/19 12:33 04/09/19 12:33 04/09/19 12:33 04/09/19 12:33 General appearance: Present: A&O X 3, no acute distress - Patient Status Condition: Fair - Discharge Instructions Follow Up With: Urvashi Nguyễn CNP [Primary Care Provider] - 04/16/19 1:00 pm (Please fax discharge info to [phone]) Abbi Plascencia CNP [Partnered Physician] - (Per the cardiology office the office will call the patient at home with a follow up)
--- NOTE | 2019-04-09 15:05 | Event Note ---
Date of Encounter: 04/09/19 Time of Encounter: 15:03 Discussed case with EP. They have reduced dose of amiodarone to 200 mg BID. Will continue this dose overnight to ensure that patient tolerates as amiodarone is a new medication this visit. If HR stable overnight, plan to d/c tomorrow morning.
--- NOTE | 2019-04-09 16:26 | Discharge Summary ---
Date of Encounter: 04/09/19 Time of Encounter: 16:21 - Discharge Diagnosis (1) Atrial fibrillation with RVR Priority: Primary Status: Resolved (2) Ventricular tachycardia Priority: Secondary Status: Resolved (3) CAD (coronary artery disease) Priority: Secondary Status: Chronic Qualifiers: Coronary Disease-Associated Artery/Lesion type: [place] artery [place] vs. transplanted heart: [place] heart Associated angina: without angina Qualified Code(s): I25.10 - Atherosclerotic heart disease of [place] coronary artery without angina pectoris Hospital course: Mr. Mota is a 63 year old male with a history of Afib. [facility] Patient was given IV amiadorane and converted to flutter. Meds were adjusted until rate was controlled. Cardiology and EP were consulted. Flecainide was discontinued. On day of discharge, patient's amiodarone was decreased from 400 mg BID to 200 mg BID. After discussion with EP, it was determined that patient was safe for discharge and OP f/u. Patient was also started on plavix, ASA, statin and BB for CAD by cardiology. Patient was clinically stable on day of discharge. Discharge discussed with: patient - Time Spent with Patient Total time spent providing and/or coordinating discharge services: 35 - Discharge Medications Prescriptions: New Aspirin Enteric Coated [Aspirin EC] 81 mg PO DAILY #30 tablet. Amiodarone [Cordarone] 200 mg PO BID #60 tablet Atorvastatin [Lipitor] 40 mg PO HS #30 tablet Clopidogrel [Plavix] 75 mg PO DAILY #30 tablet Metoprolol XL (24 HR) Succ [Toprol Xl] 12.5 mg PO DAILY #30 tab.er.24h Continued Apixaban [Eliquis] 5 mg PO BID 30 Days #60 tablet Discontinued Flecainide 150 mg PO Q12HR 30 Days #60 tablet Home Medications: Apixaban [Eliquis] 5 mg PO BID 30 Days #60 tablet 03/30/19 [Rx] Amiodarone [Cordarone] 200 mg PO BID #60 tablet 04/09/19 [Rx] Aspirin Enteric Coated [Aspirin EC] 81 mg PO DAILY #30 tablet. 04/09/19 [Rx] Atorvastatin [Lipitor] 40 mg PO HS #30 tablet 04/09/19 [Rx] Clopidogrel [Plavix] 75 mg PO DAILY #30 tablet 04/09/19 [Rx] Metoprolol XL (24 HR) Succ [Toprol Xl] 12.5 mg PO DAILY #30 tab.er.24h 04/09/19 [Rx] Allergies/Adverse Reactions: Allergy/AdvReac Type Severity Reaction Status Date / Time No Known Allergies Allergy Verified 04/06/19 07:12 Date of admission: 04/06/19 10:08 Primary care physician: Urvashi Nguyễn CNP Consults: 04/06/19 07:43 Consult to Cardiology [CONS] Stat Comment: Consulting Provider: Cardiology [place] Reason for Consult: Pt presented in [place], given amnio, now in atrial flutter. Hx of Afib with cardioversion last week Time Notified: 07:44 Call Completed: Yes 04/06/19 15:56 Consult to Cardiac Rehabilitation-Phase1 [CONS] Routine Comment: Reason for Consult: post op PCI Call Completed: Yes 04/09/19 08:56 Consult to Electrophysiology (EP) [CONS] Routine Consulting Provider: Electrophysiology [place] Reason for Consult: VT Call Completed: Yes Discharging clinician: Hao Jean-Baptiste Anticipated date of discharge: 04/09/19 - Constitutional Vitals: Temp Pulse Resp BP Pulse Ox 98.2 F 53 16 118/65 96 04/09/19 12:33 04/09/19 12:33 04/09/19 12:33 04/09/19 12:33 04/09/19 12:33 General appearance: Present: A&O X 3, no acute distress, answers questions appropriately Exam: General: Ill-appearing and in no acute distress HEENT: No erythema of posterior pharynx. No exudates. Lymphatics: No mandibular or cervical lymphadenopathy Cardiovascular: RRR. No murmurs. No chest wall tenderness. Lungs: Clear to auscelltation bilaterally. Regular chest rise. Abdomen: Non-tender. No rebound or gaurding. Nl bowel sounds. Extremities: No edema. 2+ pulses radial and pedal pulses Skin: No rahses, abrasions, or contusions. Nl cap refill. Psych: Nl attention. A&Ox3 Neuro: marketing support coordinator II-XII intact. 5/5 strength. Sensation to light touch and pinprick intact. - Patient Status Disposition: Home, Self-Care Condition: Fair Functional capacity at discharge: independent ambulation Overall status at discharge: patient is back to baseline - Discharge Instructions Follow Up With: Urvashi Nguyễn CNP [Primary Care Provider] - 04/16/19 1:00 pm (Please fax discharge info to [phone]) Abbi Plascencia CNP [Partnered Physician] - (Per the cardiology office the office will call the patient at home with a follow up) Additional Instructions: patient to f/u with Dr. Nahid CHOU in 2 weeks and PCP in 2 weeks. - Diet and Activity Activity: resume usual activities as tolerated
[2019-04-09] MEDS ORDERED: *HR* Amiodarone 200 MG TABLET PO SCH (21:00)
== END 2019-04-09 17:02 | disposition home or self-care (01) | DRG 247 ==
LOC: EMEROOARM 07:06 → 2NNU 07:06 → SUATTDRO 10:08 → 3ANU 04-09 10:39
PROVIDERS: ADMIT Student in an Organized Health Care Education/Training Program; ATTEND Family Medicine

== ENCOUNTER 2019-05-05 06:47 | Observation (INO) ==
[2019-05-05] MEDS ORDERED: Aspirin 81 MG TAB.CHEW PO ONE (07:00)
[2019-05-05 07:31] LABS: Basophils # 0.1 K/mcL (0.0-0.2); Basophils % 0.6 %; Eosinophils # 0.2 K/mcL (0.0-0.6); Eosinophils % 1.5 %; Hematocrit 54.4 % (37.5-50.1); Immature Granulocytes % 0.7 % (0-4); Lymphocytes # 1.9 K/mcL (0.6-4.6); Mean Corpuscular HGB Conc 34.2 g/dL (31.6-35.5); Mean Corpuscular Hemoglobin 30.4 pg (28.0-33.3); Mean Corpuscular Volume 88.9 fL (83.0-100.0); Monocytes # 1.3 K/mcL (0.0-1.3); Monocytes % 11.7 %; Neutrophils # 7.6 K/mcL (1.6-8.9); Platelet Count 216 K/mcL (140-400); Red Blood Count 6.12 M/mcL (4.19-5.50); Red Cell Distribution Width 12.4 % (11.5-14.5); Segmented Neutrophils % 68.5 %; White Blood Count 11.2 K/mcL (4.3-11.1)
[2019-05-05 07:39] LABS: Hemoglobin 18.6 g/dL (12.9-16.9)
[2019-05-05 07:49] LABS: INR 1.3; Prothrombin Time 14.9 Seconds (9.4-12.1)
[2019-05-05 07:52] LABS: Activated Partial Thrombo Time 43.6 Seconds (26.0-36.0); BUN/Creatinine Ratio 14 (6-26); Blood Urea Nitrogen 14 mg/dL (8-23); Calcium 9.7 mg/dL (8.6-10.3); Carbon Dioxide 23 mEq/L (23-29); Chloride 109 mEq/L (98-107); Glucose 142 mg/dL (70-105); Osmolality,Calculated 287 (280-300); Potassium 4.2 mEq/L (3.5-5.1); Sodium 137 mEq/L (136-145); eGFR For African Americans > 60 (> 60); eGFR For Non-African Americans > 60 (> 60)
[2019-05-05 07:53] LABS: Troponin I < 0.03 ng/mL (< 0.04)
[2019-05-05 08:07] LABS: Thyroid Stimulating Hormone 2.373 mcIU/mL (0.340-5.600)
[2019-05-05] MEDS ORDERED: 0.9 % Sodium Chloride 1,000 ML ONE (09:13)
[2019-05-05] MEDS ORDERED: Naloxone 0.4 MG/ML INJ IVP PRN (10:53)
[2019-05-05] MEDS ORDERED: Acetaminophen 325 MG TABLET PO PRN (10:53)
[2019-05-05] MEDS ORDERED: Ondansetron 4 MG/2 ML VIAL IVP PRN (10:53)
[2019-05-05] MEDS ORDERED: *HR* HYDROcodone/Acet 5/325 mg TABLET PO PRN (10:53)
[2019-05-05] MEDS ORDERED: 0.9 % Sodium Chloride 1,000 ML IVC ONE (11:15)
[2019-05-05] MEDS: Apixaban 5 MG TABLET PO SCH (20:11)
[2019-05-05] MEDS: *HR* Amiodarone 200 MG TABLET PO SCH (20:12)
[2019-05-06 04:25] LABS: BUN/Creatinine Ratio 16 (6-26); Blood Urea Nitrogen 14 mg/dL (8-23); Calcium 8.8 mg/dL (8.6-10.3); Carbon Dioxide 23 mEq/L (23-29); Chloride 110 mEq/L (98-107); Glucose 108 mg/dL (70-105); Osmolality,Calculated 289 (280-300); Potassium 4.1 mEq/L (3.5-5.1); Sodium 139 mEq/L (136-145); eGFR For African Americans > 60 (> 60); eGFR For Non-African Americans > 60 (> 60)
[2019-05-06] MEDS ORDERED: *HR* Amiodarone 200 MG TABLET PO SCH (09:00)
[2019-05-06] MEDS: Aspirin Enteric Coated 81 MG Tablet PO SCH (09:22)
[2019-05-06] MEDS: *HR* Amiodarone 200 MG TABLET PO SCH (09:23)
[2019-05-06] MEDS: Apixaban 5 MG TABLET PO SCH ×2 (09:23→19:51)
[2019-05-06] MEDS: Nicotine 7 MG PATCH.TD24 TD SCH (13:57)
[2019-05-07 05:07] LABS: Potassium 3.9 mEq/L (3.5-5.1)
[2019-05-07] MEDS ORDERED: *HR* Amiodarone 200 MG TABLET PO SCH ×2 (09:00→21:00)
[2019-05-07] MEDS: Aspirin Enteric Coated 81 MG Tablet PO SCH (10:00)
[2019-05-07] MEDS: Nicotine 7 MG PATCH.TD24 TD SCH (10:00)
[2019-05-07] MEDS: Apixaban 5 MG TABLET PO SCH (10:00)
[2019-05-07 11:00] VITALS: BP 133/71
== END 2019-05-07 12:55 | disposition home or self-care (01) ==
LOC: 2ANU 06:47 → EMEROOARM 06:47 → SUATTDRO 08:46 → 2ANU 09:37
PROVIDERS: ADMIT Internal Medicine; ATTEND Family Medicine

== ENCOUNTER 2019-07-27 07:19 | Observation (INO) ==
[2019-07-27] MEDS: 0.9 % Sodium Chloride 1,000 ML IVC SCH (08:07)
[2019-07-27] MEDS ORDERED: Heparin 1,000 UNITS/500 mL 1,500 ML ONE (08:19)
[2019-07-27] MEDS ORDERED: ISOVUE-370 200 ML INFUS..BTL ONE (08:19)
[2019-07-27] MEDS ORDERED: *HR* Heparin 10,000 UNIT/10 ML VIAL ONE (08:19)
[2019-07-27] MEDS ORDERED: 0.9 % Sodium Chloride 1,000 ML ONE ×2 (08:20→11:53)
[2019-07-27] MEDS ORDERED: Albuterol 2.5 MG/3 ML NEBULIZER IH ONE (08:28)
[2019-07-27] MEDS ORDERED: Ondansetron 4 MG/2 ML VIAL IVP ONE ×2 (08:28→10:27)
[2019-07-27] MEDS ORDERED: *HR* Labetalol 20 MG/4 ML SYRINGE IVP PRN (08:28)
[2019-07-27] MEDS ORDERED: *HR* OxyCODONE Immed Rel 5 MG TABLET PO PRN (08:28)
[2019-07-27] MEDS ORDERED: *HR* Promethazine 25 MG/ML VIAL IVP PRN (08:28)
[2019-07-27] MEDS ORDERED: *HR* FentaNYL (PF) 100 MCG/2 ML VIAL IVP PRN (08:28)
[2019-07-27] MEDS ORDERED: Ipratropium/Albuterol Neb 3 ML ONE (08:43)
[2019-07-27] MEDS ORDERED: *HR* FentaNYL (PF) 100 MCG/2 ML VIAL ONE (08:53)
[2019-07-27] MEDS ORDERED: Lidocaine -MPF 4% 5 ML AMPUL INFILT ONE (10:27)
[2019-07-27] MEDS ORDERED: *HR* Phenylephrine 10 MG/ML VIAL IVC ONE (10:27)
[2019-07-27] MEDS ORDERED: *HR* Propofol 200 MG/20 ML VIAL IVP ONE (10:27)
[2019-07-27] MEDS ORDERED: EPHEDrine 50 MG/ML VIAL IVP ONE (10:27)
[2019-07-27] MEDS ORDERED: Lidocaine 2% Syringe 100 MG/5 ML IV ONE (10:27)
[2019-07-27] MEDS ORDERED: *HR* Succinylcholine 200 MG/10 ML VIAL IVP ONE (10:27)
[2019-07-27] MEDS ORDERED: Protamine Sulfate 50 MG/5 ML VIAL IVP ONE (11:06)
[2019-07-27] MEDS ORDERED: Naloxone 0.4 MG/ML INJ IVP PRN (11:08)
[2019-07-27] MEDS ORDERED: Acetaminophen 325 MG TABLET PO PRN (11:08)
[2019-07-27] MEDS ORDERED: *HR* HYDROcodone/Acet 5/325 mg TABLET PO PRN (11:08)
[2019-07-27] MEDS: Apixaban 5 MG TABLET PO SCH (21:26)
[2019-07-28 07:02] VITALS: BP 110/72
[2019-07-28] MEDS: Apixaban 5 MG TABLET PO SCH (08:06)
[2019-07-28] MEDS: 0.9 % Sodium Chloride 1,000 ML IVC SCH (08:06)
[2019-07-28] MEDS ORDERED: *HR* Amiodarone 200 MG TABLET PO SCH (09:00)
[2019-07-28] MEDS ORDERED: Aspirin Enteric Coated 81 MG Tablet PO SCH (09:00)
== END 2019-07-28 10:28 | disposition home or self-care (01) ==
LOC: INVDIALAB 07:19 → 2NNU 07:19
PROVIDERS: ADMIT Internal Medicine Clinical Cardiac Electrophysiology; ATTEND Internal Medicine Clinical Cardiac Electrophysiology